=== PATIENT | female | born 1990 | race Hispanic/Latino ===

== ENCOUNTER 2017-11-23 15:32 | Inpatient (IN) | payer MEDICARE ==
[~2017-11-23] VITALS: Ht 152.4 cm; Wt 75.9 kg
[~2017-11-23 15:32] MED LIST: ALPR0.5T8 PO; DULOXETINE PO; FOLI1TAB85 PO; GABA-529 PO; INSNOV SQ; LEVO500T2 PO; LOSA50TA2 PO; METO100T14 PO; NPH,100V11 SQ; TRAM50TA4 PO
[2017-11-23 15:56] LABS: APPEARANCE,URINE Clear (CLEAR); BILIRUBIN,URINE Negative (NEGATIVE); COLOR,URINE Yellow (YELLOW); GLUCOSE, URINE (UA) >=1000 mg/dL (NEGATIVE); KETONES,URINE Negative (NEGATIVE); LEUKOCYTE ESTERASE ,URINE Negative (NEGATIVE); NITRATE,URINE Negative (NEGATIVE); OCCULT BLOOD,URINE Small (NEGATIVE); PROTEIN,URINE 300 (NEGATIVE); UROBILINOGEN,URINE 0.2 mg/dL (0.2-1.0)
[2017-11-23] MEDS ORDERED: IPRATROPIUM/ALBUTEROL SULFATE 3 ML SOLUTION IH ONE (16:12)
[2017-11-23 16:13] LABS: BASOPHILS % (AUTO) 0.2 % (0.0-5.0); EOSINOPHILS % (AUTO) 0.8 % (0.0-8.0); HEMATOCRIT 29.4 % (36-48); LYMPHOCYTES % (AUTO) 10.4 % (21.0-51.0); MEAN CORPUSCULAR HGB CONC 33.1 g/dL (32.0-36.0); MEAN CORPUSCULAR VOLUME 90.6 fL (79-99); MONOCYTES % (AUTO) 5.9 % (3.0-13.0); NEUTROPHILS % (AUTO) 82.7 % (40.0-77.0); PLATELET COUNT (AUTO) 270 K/uL (130-400); RED BLOOD CELL COUNT(AUTO) 3.25 MIL/uL (4.00-5.50); RED CELL DISTRIBUTION WIDTH 16.7 % (11.0-15.5); WHITE BLOOD COUNT (AUTO) 11.8 K/uL (4.8-10.8)
[2017-11-23] MEDS ORDERED: SODIUM CHLORIDE 0.9% 1000ML 1,000 ML IV ONE (16:15)
[2017-11-23] MEDS ORDERED: MEROPENEM 1 GM VIAL ONE (16:15)
[2017-11-23] MEDS ORDERED: ACETAMINOPHEN 325 MG TAB ONE ×2 (16:16→21:26)
[2017-11-23 16:25] LABS: CARBON DIOXIDE 19 mmol/L (21-32); CHLORIDE 97 mmol/L (101-111); CREATININE 6.2 mg/dL (0.5-1.5); GLOMERULAR FILTR. RATE CALC 9 mL/min (>60); GLUCOSE,RANDOM 374 mg/dL (70-105); POTASSIUM 5.9 mmol/L (3.5-5.1); SODIUM SERUM 131 mmol/L (136-145); UREA NITROGEN, BLOOD 69 mg/dL (7-18)
[2017-11-23 16:28] LABS: INR 0.85 (0.85-1.15); PARTIAL THROMBOPLASTIN TIME 26.7 SEC (26.3-35.5)
[2017-11-23 16:40] LABS: ALANINE AMINOTRANSFERASE 64 U/L (12-78); ALBUMIN 2.4 g/dL (3.5-5.0); ASPARTATE AMINOTRANSFERASE 21 U/L (10-37); BILIRUBIN,TOTAL 0.6 mg/dL (0.2-1.0); CREATINE KINASE MB 1.5 ng/mL (0.5-3.6); CREATINE KINASE, TOTAL 67 U/L (21-232); MYOGLOBIN 184 ng/mL (10-92); TOTAL PROTEIN, SERUM 7.5 g/dL (6.0-8.3); TROPONIN I < 0.04 ng/mL (0.00-0.06)
[2017-11-23 17:05] LABS: BACTERIA,URINE Rare /HPF (None Seen); WBC,URINE 0-1 /HPF (0-1); YEAST,URINE BUDDING Rare /HPF (None Seen)
[2017-11-23 17:06] LABS: SQUAMOUS EPITHELIAL CELL,UR Rare /LPF (0-2)
[2017-11-23] MEDS ORDERED: CEFTRIAXONE SODIUM 1 GM ONE (19:24)
[2017-11-23 19:40] VITALS: BP 150/88
[2017-11-23] MEDS ORDERED: HYDRALAZINE HCL 20 MG/ML VIAL IV PRN (21:00)
[2017-11-23] MEDS ORDERED: GABA-529 PO (21:00)
[2017-11-23] MEDS ORDERED: NPH,100V11 SQ (21:00)
[2017-11-23] MEDS: INSULIN HUMULIN R 100 UNIT/ML 3ML SQ SCH (21:57)
[2017-11-23] MEDS ORDERED: ONDANSETRON HCL 4 MG/2 ML VIAL IV PRN (22:30)
[2017-11-23] MEDS ORDERED: GUAIFENESIN-DM 200/20 MG 10 ML PO PRN (22:30)
[2017-11-23] MEDS ORDERED: HYDROCODONE/ACETAMINOPHEN 5/325 MG TAB PO PRN (22:30)
[2017-11-23] MEDS ORDERED: CEFEPIME 1GM+NS 50ML 50 ML IV SCH (22:30)
[2017-11-23] MEDS ORDERED: HYDROCODONE/ACETAMINOPHEN 10/325 MG TAB ONE (23:36)
[2017-11-24] VITALS (7 sets, daily range): BP systolic 121–137; BP diastolic 58–72
[2017-11-24] MEDS: IPRATROPIUM/ALBUTEROL SULFATE 3 ML SOLUTION IH SCH ×4 (01:20→18:34)
[2017-11-24] MEDS ORDERED: HYDROCODONE/ACETAMINOPHEN 10/325 MG TAB ONE (03:54)
[2017-11-24 05:48] LABS: HEMATOCRIT 25.4 % (36-48); MEAN CORPUSCULAR HEMOGLOBIN 29.7 pg (27.0-33.0); MEAN CORPUSCULAR HGB CONC 32.6 g/dL (32.0-36.0); MEAN CORPUSCULAR VOLUME 91.3 fL (79-99); PLATELET COUNT (AUTO) 225 K/uL (130-400); RED BLOOD CELL COUNT(AUTO) 2.78 MIL/uL (4.00-5.50); RED CELL DISTRIBUTION WIDTH 16.6 % (11.0-15.5)
[2017-11-24 06:00] LABS: BILIRUBIN,TOTAL 0.3 mg/dL (0.2-1.0); CREATININE 6.5 mg/dL (0.5-1.5); MAGNESIUM 1.9 mg/dL (1.80-2.40); PHOSPHORUS 5.5 mg/dL (2.5-4.9); POTASSIUM 4.6 mmol/L (3.5-5.1); TOTAL PROTEIN, SERUM 6.5 g/dL (6.0-8.3)
[2017-11-24 06:24] LABS: BAND NEUTROPHILS % (MANUAL) 11 % (0-2); LYMPHOCYTES % (MANUAL) 12 % (22-44); MONOCYTES % (MANUAL) 2 % (2-9); SEGMENTED NEUTROPHILS % 75 % (40-70)
[2017-11-24 06:25] LABS: MAN.DIFF COMMENT-IMPRESSION MANUAL DIFFERENTIAL; PLATELET MORPHOLOGY COMMENT ADEQUATE
[2017-11-24] MEDS: INSULIN HUMULIN R 100 UNIT/ML 3ML SQ SCH ×3 (06:25→21:29)
[2017-11-24] MEDS ORDERED: VANCOMYCIN PROTOCOL PER PHARMACY IV SCH (10:00)
[2017-11-24] MEDS ORDERED: EPOETIN ALFA 10,000 UNIT/ML VIAL SQ SCH (10:15)
[2017-11-24] MEDS: PANTOPRAZOLE SODIUM 40 MG TABLET.DR PO SCH (10:22)
[2017-11-24] MEDS: HEPARIN SODIUM 5000UNIT/ML 1ML VIAL SQ SCH ×2 (10:23→21:32)
[2017-11-24] MEDS ORDERED: VANCOMYCIN 1GM+NS 250ML 250 ML IV SCH (11:00)
[2017-11-24] MEDS ORDERED: LEVOFLOXACIN 500 MG/D5W 100 ML 100 ML IV SCH (11:00)
[2017-11-24] MEDS ORDERED: RENAL DOSE IV PRN (11:00)
[2017-11-24] MEDS ORDERED: ALPRAZOLAM 0.5 MG TABLET PO PRN (11:00)
[2017-11-24] MEDS ORDERED: ALTEPLASE 2 MG/2 ML IVCATH SCH (12:45)
[2017-11-24] MEDS: GABAPENTIN 100 MG CAPSULE PO SCH ×2 (16:34→21:20)
[2017-11-24] MEDS: ACETAMINOPHEN 325 MG TAB PO PRN (16:36)
[2017-11-24 17:26] LABS: CREATINE KINASE MB 0.5 ng/mL (0.5-3.6); CREATINE KINASE, TOTAL 66 U/L (21-232); MYOGLOBIN 282 ng/mL (10-92); TROPONIN I < 0.04 ng/mL (0.00-0.06)
[2017-11-24] MEDS ORDERED: CEFTRIAXONE SODIUM 1 GM IVP SCH (19:00)
[2017-11-24] MEDS: METOPROLOL TARTRATE 50 MG TAB PO SCH (21:20)
[2017-11-24] MEDS: HYDROCODONE/ACETAMINOPHEN 10/325 MG TAB PO PRN (21:21)
[2017-11-24] MEDS: INSULIN NPH 100 UNIT/ML 3ML SQ SCH (21:28)
[2017-11-24 23:15] LABS: CREATINE KINASE MB 1.3 ng/mL (0.5-3.6); TROPONIN I 0.05 ng/mL (0.00-0.06)
[2017-11-25] MEDS ORDERED: DEXTROSE 50%-WATER 50 ML DISP.SYRIN IV ONE ×3 (00:33→04:38)
[2017-11-25] MEDS: IPRATROPIUM/ALBUTEROL SULFATE 3 ML SOLUTION IH SCH ×5 (00:49→23:51)
[2017-11-25 02:54] VITALS: BP 125/84
[2017-11-25 03:48] LABS: MEAN CORPUSCULAR HEMOGLOBIN 30.4 pg (27.0-33.0); MEAN CORPUSCULAR HGB CONC 33.4 g/dL (32.0-36.0); MEAN CORPUSCULAR VOLUME 91.1 fL (79-99); PLATELET COUNT (AUTO) 325 K/uL (130-400); RED BLOOD CELL COUNT(AUTO) 3.07 MIL/uL (4.00-5.50); RED CELL DISTRIBUTION WIDTH 17.3 % (11.0-15.5); WHITE BLOOD COUNT (AUTO) 12.6 K/uL (4.8-10.8)
[2017-11-25 05:04] LABS: CREATINE KINASE MB 1.8 ng/mL (0.5-3.6); CREATININE 6.5 mg/dL (0.5-1.5); POTASSIUM 4.8 mmol/L (3.5-5.1); TROPONIN I 0.08 ng/mL (0.00-0.06)
[2017-11-25] MEDS: INSULIN NPH 100 UNIT/ML 3ML SQ SCH ×2 (05:56→22:17)
[2017-11-25] MEDS: INSULIN HUMULIN R 100 UNIT/ML 3ML SQ SCH ×4 (05:58→22:19)
[2017-11-25 07:42] VITALS: BP 131/69
[2017-11-25] MEDS: PANTOPRAZOLE SODIUM 40 MG TABLET.DR PO SCH (10:37)
[2017-11-25] MEDS: METOPROLOL TARTRATE 50 MG TAB PO SCH ×2 (10:37→21:20)
[2017-11-25] MEDS: FOLIC ACID/VITAMIN B COMP W-C 1 MG CAPSULE PO SCH (10:37)
[2017-11-25] MEDS: LOSARTAN 50 MG TABLET PO SCH (10:37)
[2017-11-25] MEDS: GABAPENTIN 100 MG CAPSULE PO SCH ×3 (10:42→21:20)
[2017-11-25] MEDS: HEPARIN SODIUM 5000UNIT/ML 1ML VIAL SQ SCH ×2 (10:43→22:15)
[2017-11-25] MEDS: ACETAMINOPHEN 325 MG TAB PO PRN (10:52)
[2017-11-25 11:28] VITALS: BP 136/77
[2017-11-25] MEDS: HYDROCODONE/ACETAMINOPHEN 10/325 MG TAB PO PRN ×2 (15:43→21:25)
[2017-11-25 16:15] VITALS: BP 118/69
[2017-11-25 19:34] VITALS: BP 128/72
[2017-11-25 23:17] VITALS: BP 123/73
[2017-11-26] VITALS (12 sets, daily range): BP systolic 114–137; BP diastolic 58–78
[2017-11-26 03:38] LABS: HEMATOCRIT 24.5 % (36-48); MEAN CORPUSCULAR HEMOGLOBIN 31.5 pg (27.0-33.0); MEAN CORPUSCULAR HGB CONC 34.3 g/dL (32.0-36.0); MEAN CORPUSCULAR VOLUME 91.9 fL (79-99); PLATELET COUNT (AUTO) 322 K/uL (130-400); RED BLOOD CELL COUNT(AUTO) 2.67 MIL/uL (4.00-5.50); RED CELL DISTRIBUTION WIDTH 17.1 % (11.0-15.5); WHITE BLOOD COUNT (AUTO) 9.5 K/uL (4.8-10.8)
[2017-11-26 03:47] LABS: CREATININE 7.2 mg/dL (0.5-1.5); PHOSPHORUS 7.5 mg/dL (2.5-4.9); POTASSIUM 5.1 mmol/L (3.5-5.1)
[2017-11-26 03:51] LABS: INR 0.89 (0.85-1.15); PARTIAL THROMBOPLASTIN TIME 28.8 SEC (26.3-35.5); PROTHROMBIN TIME 9.4 SEC (9.6-11.6)
[2017-11-26 04:06] LABS: BAND NEUTROPHILS % (MANUAL) 1 % (0-2); BASOPHILS % (MANUAL) 1 % (0-2); EOSINOPHILS % (MANUAL) 1 % (1-6); LYMPHOCYTES % (MANUAL) 16 % (22-44); MONOCYTES % (MANUAL) 6 % (2-9); SEGMENTED NEUTROPHILS % 75 % (40-70)
[2017-11-26 04:07] LABS: MAN.DIFF COMMENT-IMPRESSION MANUAL DIFFERENTIAL; PLATELET MORPHOLOGY COMMENT ADEQUATE
[2017-11-26] MEDS: IPRATROPIUM/ALBUTEROL SULFATE 3 ML SOLUTION IH SCH ×4 (06:52→23:38)
[2017-11-26] MEDS: HEPARIN SODIUM 5000UNIT/ML 1ML VIAL SQ SCH ×2 (07:28→22:45)
[2017-11-26] MEDS: INSULIN NPH 100 UNIT/ML 3ML SQ SCH ×2 (07:30→22:49)
[2017-11-26] MEDS: INSULIN HUMULIN R 100 UNIT/ML 3ML SQ SCH ×4 (07:30→22:50)
[2017-11-26] MEDS: GABAPENTIN 100 MG CAPSULE PO SCH ×3 (07:35→22:44)
[2017-11-26] MEDS: PANTOPRAZOLE SODIUM 40 MG TABLET.DR PO SCH (07:35)
[2017-11-26] MEDS: LOSARTAN 50 MG TABLET PO SCH (07:35)
[2017-11-26] MEDS: METOPROLOL TARTRATE 50 MG TAB PO SCH ×2 (07:35→22:46)
[2017-11-26] MEDS: FOLIC ACID/VITAMIN B COMP W-C 1 MG CAPSULE PO SCH (07:35)
[2017-11-26] MEDS ORDERED: LEVOFLOXACIN 250 MG/D5W 50ML 50 ML IVPB SCH (09:00)
[2017-11-26] MEDS ORDERED: LIDOCAINE HCL 1% 20 ML VIAL ONE (09:22)
[2017-11-26] MEDS ORDERED: MIDAZOLAM HCL 1 MG/ML 2ML VIAL ONE (10:02)
[2017-11-26] MEDS: METHYLPREDNISOLONE SOD SUCC 40MG/ML 1ML IVP SCH ×2 (14:28→22:51)
[2017-11-26] MEDS: HYDROCODONE/ACETAMINOPHEN 10/325 MG TAB PO PRN ×2 (14:29→20:16)
[2017-11-26] MEDS ORDERED: SODIUM CHLORIDE 0.9% 1000ML 1,000 ML IV ONE (19:28)
[2017-11-27] MEDS: HYDROCODONE/ACETAMINOPHEN 10/325 MG TAB PO PRN ×4 (03:50→23:57)
[2017-11-27 04:00] VITALS: BP 147/86
[2017-11-27 04:20] LABS: HEMATOCRIT 26.9 % (36-48); MEAN CORPUSCULAR HEMOGLOBIN 30.4 pg (27.0-33.0); MEAN CORPUSCULAR HGB CONC 33.6 g/dL (32.0-36.0); MEAN CORPUSCULAR VOLUME 90.5 fL (79-99); PLATELET COUNT (AUTO) 440 K/uL (130-400); RED BLOOD CELL COUNT(AUTO) 2.97 MIL/uL (4.00-5.50); RED CELL DISTRIBUTION WIDTH 17.1 % (11.0-15.5); WHITE BLOOD COUNT (AUTO) 6.5 K/uL (4.8-10.8)
[2017-11-27 04:27] LABS: POTASSIUM 4.8 mmol/L (3.5-5.1)
[2017-11-27] MEDS: IPRATROPIUM/ALBUTEROL SULFATE 3 ML SOLUTION IH SCH ×4 (06:14→23:44)
[2017-11-27] MEDS: METHYLPREDNISOLONE SOD SUCC 40MG/ML 1ML IVP SCH ×3 (06:38→22:02)
[2017-11-27] MEDS: INSULIN NPH 100 UNIT/ML 3ML SQ SCH ×2 (06:39→21:23)
[2017-11-27] MEDS: INSULIN HUMULIN R 100 UNIT/ML 3ML SQ SCH ×5 (06:41→23:46)
[2017-11-27 07:51] VITALS: BP 140/78
[2017-11-27] MEDS: FOLIC ACID/VITAMIN B COMP W-C 1 MG CAPSULE PO SCH (08:17)
[2017-11-27] MEDS: METOPROLOL TARTRATE 50 MG TAB PO SCH ×2 (08:17→21:19)
[2017-11-27] MEDS: PANTOPRAZOLE SODIUM 40 MG TABLET.DR PO SCH (08:17)
[2017-11-27] MEDS: LOSARTAN 50 MG TABLET PO SCH (08:17)
[2017-11-27] MEDS: HEPARIN SODIUM 5000UNIT/ML 1ML VIAL SQ SCH ×2 (08:18→21:10)
[2017-11-27] MEDS: GABAPENTIN 100 MG CAPSULE PO SCH ×3 (08:29→21:15)
[2017-11-27 11:51] VITALS: BP 134/74
[2017-11-27 16:25] VITALS: BP 147/78
[2017-11-27 19:27] VITALS: BP 137/80
[2017-11-28 00:12] VITALS: BP 152/73
[2017-11-28 04:53] VITALS: BP 142/77
[2017-11-28 05:12] LABS: HEMATOCRIT 26.5 % (36-48); MEAN CORPUSCULAR HEMOGLOBIN 31.2 pg (27.0-33.0); MEAN CORPUSCULAR HGB CONC 34.8 g/dL (32.0-36.0); MEAN CORPUSCULAR VOLUME 89.7 fL (79-99); NUCLEATED RED BLOOD CELLS 0.1 % (0.0-0.19); PLATELET COUNT (AUTO) 458 K/uL (130-400); RED BLOOD CELL COUNT(AUTO) 2.96 MIL/uL (4.00-5.50)
[2017-11-28 05:19] LABS: CREATININE 4.8 mg/dL (0.5-1.5); MAGNESIUM 2.1 mg/dL (1.80-2.40); PHOSPHORUS 5.8 mg/dL (2.5-4.9); POTASSIUM 4.1 mmol/L (3.5-5.1)
[2017-11-28] MEDS: IPRATROPIUM/ALBUTEROL SULFATE 3 ML SOLUTION IH SCH ×2 (05:57→11:03)
[2017-11-28] MEDS: METHYLPREDNISOLONE SOD SUCC 40MG/ML 1ML IVP SCH (06:36)
[2017-11-28] MEDS: INSULIN NPH 100 UNIT/ML 3ML SQ SCH (06:41)
[2017-11-28] MEDS: INSULIN HUMULIN R 100 UNIT/ML 3ML SQ SCH (06:42)
[2017-11-28 07:17] VITALS: BP 140/85
[2017-11-28 07:46] LABS: LYMPHOCYTES % (MANUAL) 3 % (22-44); MAN.DIFF COMMENT-IMPRESSION MANUAL DIFFERENTIAL; MONOCYTES % (MANUAL) 5 % (2-9); PLATELET MORPHOLOGY COMMENT SLIGHT INCREASED; SEGMENTED NEUTROPHILS % 92 % (40-70)
[2017-11-28] MEDS: HYDROCODONE/ACETAMINOPHEN 10/325 MG TAB PO PRN (10:07)
[2017-11-28 11:22] VITALS: BP 144/75
== END 2017-11-28 15:00 | disposition home or self-care (01) | DRG 314 ==
LOC: EDH 15:32 → EDHIP 16:50 → 4CH 19:36 → 2DH 11-24 17:13
PROVIDERS: ADMIT Family Medicine; ATTEND Family Medicine
PROC: 05PYX3Z Removal of Infusion Device from Upper Vein, External Approach (ICD-10-PCS; principal; 2017-11-26)
PROC: 05HY33Z Insertion of Infusion Device into Upper Vein, Percutaneous Approach (ICD-10-PCS; 2017-11-26)
PROC: B51V1ZA Fluoroscopy of Other Veins using Low Osmolar Contrast, Guidance (ICD-10-PCS; 2017-11-26)
PROC: 5A1D70Z Performance of Urinary Filtration, Intermittent, Less than 6 Hours Per Day (ICD-10-PCS; 2017-11-26)
PROC: 5A1D70Z Performance of Urinary Filtration, Intermittent, Less than 6 Hours Per Day (ICD-10-PCS; 2017-11-27)
DX: T82.898A Other specified complication of vascular prosthetic devices, implants and grafts, initial encounter (principal); A41.9 Sepsis, unspecified organism; I12.0 Hypertensive chronic kidney disease with stage 5 chronic kidney disease or end stage renal disease; J18.9 Pneumonia, unspecified organism; E11.22 Type 2 diabetes mellitus with diabetic chronic kidney disease; N18.6 End stage renal disease; E11.65 Type 2 diabetes mellitus with hyperglycemia; S41.102A Unspecified open wound of left upper arm, initial encounter; D63.1 Anemia in chronic kidney disease; N39.0 Urinary tract infection, site not specified; L03.114 Cellulitis of left upper limb; E87.70 Fluid overload, unspecified; R06.03 Acute respiratory distress; F32.9 Major depressive disorder, single episode, unspecified; F41.1 Generalized anxiety disorder; M79.81 Nontraumatic hematoma of soft tissue; Z82.0 Family history of epilepsy and other diseases of the nervous system; Y83.2 Surgical operation with anastomosis, bypass or graft as the cause of abnormal reaction of the patient, or of later complication, without mention of misadventure at the time of the procedure; J20.9 Acute bronchitis, unspecified; Z99.2 Dependence on renal dialysis; Z87.440 Personal history of urinary (tract) infections; Z90.49 Acquired absence of other specified parts of digestive tract; Z98.891 History of uterine scar from previous surgery; Z89.432 Acquired absence of left foot; Z83.3 Family history of diabetes mellitus; Z82.41 Family history of sudden cardiac death; Z82.49 Family history of ischemic heart disease and other diseases of the circulatory system; Z82.3 Family history of stroke; Z82.5 Family history of asthma and other chronic lower respiratory diseases; Y93.89 Activity, other specified; Y92.89 Other specified places as the place of occurrence of the external cause; Y99.8 Other external cause status; Z88.6 Allergy status to analgesic agent
CPT/HCPCS: 36415; 36581; 71045; 76882; 77001; 78580; 80048; 80053; 81001; 82009; 82550; 82553; 82947; 82948; 83605; 83735; 83874; 84100; 84484; 85025; 85027; 85610; 85730; 87040; 87070; 87077; 87088; 87186; 87804; 90935; 93005; 93971; 94640; 94664; 99152; 99153; A4218; A9540; C1750; C1769; J0696; J0885; J1644; J1815; J1956; J2185; J2250; J2920; J2997; J3370; J7030; J7070

== ENCOUNTER 2017-12-20 19:10 | Inpatient (IN) | payer MEDICARE ==
[~2017-12-20] VITALS: Ht 152.4 cm; Wt 70.7 kg
[~2017-12-20 19:10] MED LIST changes: -LEVO500T2 PO; -TRAM50TA4 PO
[2017-12-20] MEDS ORDERED: ACETAMINOPHEN EXTRA STRENGTH 500 MG TABLET ONE (19:23)
[2017-12-20] MEDS ORDERED: SODIUM CHLORIDE 0.9% 1000ML 1,000 ML IV ONE (19:23)
[2017-12-20 20:04] LABS: APPEARANCE,URINE Clear (CLEAR); BILIRUBIN,URINE Negative (NEGATIVE); COLOR,URINE Yellow (YELLOW); GLUCOSE, URINE (UA) >=1000 mg/dL (NEGATIVE); KETONES,URINE Negative (NEGATIVE); LEUKOCYTE ESTERASE ,URINE Negative (NEGATIVE); NITRATE,URINE Negative (NEGATIVE); OCCULT BLOOD,URINE Small (NEGATIVE); PH,URINE 5.5 (5.0-8.0); PROTEIN,URINE 300 (NEGATIVE); UROBILINOGEN,URINE 0.2 mg/dL (0.2-1.0)
[2017-12-20 20:07] LABS: HCG,QUAL RESULT NEGATIVE (NEGATIVE)
[2017-12-20 20:11] LABS: AMPHET/METH SCREEN,URINE NEGATIVE (NEGATIVE); BARBITURATE SCREEN, URINE NEGATIVE (NEGATIVE); BENZODIAZEPINES SCREEN,URINE POSITIVE (NEGATIVE); CANNABINOID SCREEN,URINE NEGATIVE (NEGATIVE); COCAINE SCREEN,URINE NEGATIVE (NEGATIVE); OPIATE SCREEN,URINE NEGATIVE (NEGATIVE); PHENCYCLIDINE SCREEN,URINE NEGATIVE (NEGATIVE)
[2017-12-20 20:37] LABS: BACTERIA,URINE Few /HPF (None Seen); FINE GRANULAR CASTS,URINE 0-2 /LPF (None Seen); WBC,URINE 0-1 /HPF (0-1)
[2017-12-20 20:42] LABS: CARBON DIOXIDE 24 mmol/L (21-32); CHLORIDE 95 mmol/L (101-111); CREATININE 4.9 mg/dL (0.5-1.5); GLOMERULAR FILTR. RATE CALC 11 mL/min (>60); GLUCOSE,RANDOM 363 mg/dL (70-105); POTASSIUM 4.2 mmol/L (3.5-5.1); SODIUM SERUM 131 mmol/L (136-145); UREA NITROGEN, BLOOD 37 mg/dL (7-18)
[2017-12-20 20:45] LABS: BASOPHILS % (AUTO) 1.5 % (0.0-5.0); EOSINOPHILS % (AUTO) 0.5 % (0.0-8.0); HEMATOCRIT 28.7 % (36-48); LYMPHOCYTES % (AUTO) 13.5 % (21.0-51.0); MEAN CORPUSCULAR HEMOGLOBIN 29.9 pg (27.0-33.0); MEAN CORPUSCULAR HGB CONC 33.4 g/dL (32.0-36.0); MEAN CORPUSCULAR VOLUME 89.5 fL (79-99); MONOCYTES % (AUTO) 9.4 % (3.0-13.0); NEUTROPHILS % (AUTO) 75.1 % (40.0-77.0); NUCLEATED RED BLOOD CELLS 0.1 % (0.0-0.19); PLATELET COUNT (AUTO) 277 K/uL (130-400); RED BLOOD CELL COUNT(AUTO) 3.21 MIL/uL (4.00-5.50); RED CELL DISTRIBUTION WIDTH 17.9 % (11.0-15.5); WHITE BLOOD COUNT (AUTO) 18.4 K/uL (4.8-10.8)
[2017-12-20 20:46] LABS: ALANINE AMINOTRANSFERASE 19 U/L (12-78); ALBUMIN 2.3 g/dL (3.5-5.0); ASPARTATE AMINOTRANSFERASE 14 U/L (10-37); BILIRUBIN,TOTAL 0.6 mg/dL (0.2-1.0); TOTAL PROTEIN, SERUM 7.5 g/dL (6.0-8.3)
[2017-12-20] MEDS ORDERED: CEFTRIAXONE SODIUM 2 GM VIAL ONE (21:53)
[2017-12-20 22:07] LABS: ACETONE,BLOOD NEGATIVE (NEGATIVE)
[2017-12-20] MEDS ORDERED: GLUCAGON 1MG KIT 1 MG ML IM PRN (23:45)
[2017-12-20] MEDS ORDERED: HYDRALAZINE HCL 20 MG/ML VIAL IM PRN (23:45)
[2017-12-20] MEDS ORDERED: DEXTROSE 50%-WATER 50 ML DISP.SYRIN IV PRN (23:45)
[2017-12-21] VITALS (13 sets, daily range): BP systolic 98–137; BP diastolic 50–80
[2017-12-21] MEDS ORDERED: ACETAMINOPHEN 325 MG TAB ONE (02:11)
[2017-12-21] MEDS ORDERED: VANCOMYCIN 1GM+NS 250ML 250 ML IV ONE (02:12)
[2017-12-21] MEDS: ONDANSETRON HCL MDV 20ML 2 MG/ML VIAL IVP PRN ×2 (03:08→10:20)
[2017-12-21 03:19] LABS: BASOPHILS % (AUTO) 0.5 % (0.0-5.0); EOSINOPHILS % (AUTO) 0.6 % (0.0-8.0); HEMATOCRIT 28.8 % (36-48); LYMPHOCYTES % (AUTO) 16.4 % (21.0-51.0); MEAN CORPUSCULAR HEMOGLOBIN 29.3 pg (27.0-33.0); MEAN CORPUSCULAR VOLUME 88.6 fL (79-99); MONOCYTES % (AUTO) 8.6 % (3.0-13.0); NEUTROPHILS % (AUTO) 73.9 % (40.0-77.0); PLATELET COUNT (AUTO) 336 K/uL (130-400); RED BLOOD CELL COUNT(AUTO) 3.25 MIL/uL (4.00-5.50); RED CELL DISTRIBUTION WIDTH 17.7 % (11.0-15.5)
[2017-12-21 03:30] LABS: CREATININE 4.9 mg/dL (0.5-1.5); POTASSIUM 4.1 mmol/L (3.5-5.1)
[2017-12-21] MEDS ORDERED: MEROPENEM 500MG+NS 50ML 50 ML IV SCH (06:00)
[2017-12-21] MEDS ORDERED: MEROPENEM 500 MG VIAL ONE (07:00)
[2017-12-21] MEDS: INSULIN LISPRO 100 UNIT/ML 3ML SQ SCH ×3 (07:02→17:25)
[2017-12-21] MEDS: INSULIN NPH 100 UNIT/ML 3ML SQ SCH ×2 (07:20→21:09)
[2017-12-21 08:02] LABS: INR 0.88 (0.85-1.15); PROTHROMBIN TIME 9.1 SEC (9.6-11.6)
[2017-12-21] MEDS ORDERED: LIDOCAINE HCL 1% MDV 50ML VIAL ONE ×2 (08:45→14:51)
[2017-12-21] MEDS: HEPARIN SODIUM 5000UNIT/ML 1ML VIAL SQ SCH ×2 (09:00→21:11)
[2017-12-21] MEDS: FOLIC ACID/VITAMIN B COMP W-C 1 MG CAPSULE PO SCH ×2 (09:00→10:26)
[2017-12-21] MEDS: METOPROLOL TARTRATE 50 MG TAB PO SCH ×2 (10:20→20:48)
[2017-12-21] MEDS: LOSARTAN 50 MG TABLET PO SCH (10:26)
[2017-12-21] MEDS: DULOXETINE HCL 30 MG CAP PO SCH (10:26)
[2017-12-21] MEDS: GABAPENTIN 100 MG CAPSULE PO SCH ×3 (10:40→20:48)
[2017-12-21] MEDS: FAMOTIDINE 20MG TAB 20 MG TAB PO SCH (10:43)
[2017-12-21] MEDS ORDERED: GLUCAGON 1MG KIT 1 MG ML IM PRN (12:00)
[2017-12-21] MEDS ORDERED: DEXTROSE 50%-WATER 50 ML DISP.SYRIN IV PRN (12:00)
[2017-12-21] MEDS ORDERED: INSULIN HUMULIN R 100 UNIT/ML 3ML ONE (12:03)
[2017-12-21] MEDS: ACETAMINOPHEN 325 MG TAB PO PRN ×3 (12:08→20:52)
[2017-12-21] MEDS: MEROPENEM 500 MG VIAL IVP SCH ×2 (14:59→22:13)
[2017-12-21] MEDS: INSULIN HUMULIN R 100 UNIT/ML 3ML SQ SCH ×2 (16:17→21:11)
[2017-12-21] MEDS ORDERED: HEPARIN SODIUM 5000UNIT/ML 1ML VIAL IJ PRN (20:45)
[2017-12-21] MEDS ORDERED: SODIUM CHLORIDE 0.9% 1000ML 1,000 ML IV PRN (20:45)
[2017-12-21] MEDS ORDERED: 0.9% SODIUM CHLORIDE 250 ML IV BAG IV PRN (20:45)
[2017-12-21] MEDS: ALPRAZOLAM 0.5 MG TABLET PO PRN (20:58)
[2017-12-22 03:40] VITALS: BP 114/70
[2017-12-22 03:45] LABS: HEMATOCRIT 27.6 % (36-48); MEAN CORPUSCULAR HEMOGLOBIN 30.9 pg (27.0-33.0); MEAN CORPUSCULAR HGB CONC 34.7 g/dL (32.0-36.0); NUCLEATED RED BLOOD CELLS 0.1 % (0.0-0.19); PLATELET COUNT (AUTO) 301 K/uL (130-400); RED CELL DISTRIBUTION WIDTH 18.5 % (11.0-15.5)
[2017-12-22 04:07] LABS: BILIRUBIN,TOTAL 0.4 mg/dL (0.2-1.0); CREATININE 3.6 mg/dL (0.5-1.5); PHOSPHORUS 3.8 mg/dL (2.5-4.9); POTASSIUM 3.4 mmol/L (3.5-5.1); TOTAL PROTEIN, SERUM 7.3 g/dL (6.0-8.3)
[2017-12-22] MEDS: MEROPENEM 500 MG VIAL IVP SCH ×3 (05:16→21:28)
[2017-12-22] MEDS: INSULIN LISPRO 100 UNIT/ML 3ML SQ SCH ×3 (06:24→16:43)
[2017-12-22] MEDS: INSULIN NPH 100 UNIT/ML 3ML SQ SCH ×2 (06:25→20:44)
[2017-12-22] MEDS: INSULIN HUMULIN R 100 UNIT/ML 3ML SQ SCH ×4 (06:25→20:45)
[2017-12-22] MEDS: METOPROLOL TARTRATE 50 MG TAB PO SCH ×2 (08:06→20:46)
[2017-12-22] MEDS: LOSARTAN 50 MG TABLET PO SCH (08:06)
[2017-12-22] MEDS: ACETAMINOPHEN 325 MG TAB PO PRN ×2 (08:06→23:21)
[2017-12-22] MEDS: DULOXETINE HCL 30 MG CAP PO SCH (08:06)
[2017-12-22] MEDS: FOLIC ACID/VITAMIN B COMP W-C 1 MG CAPSULE PO SCH ×2 (08:06→08:13)
[2017-12-22] MEDS: HEPARIN SODIUM 5000UNIT/ML 1ML VIAL SQ SCH ×2 (08:08→20:43)
[2017-12-22] MEDS: FAMOTIDINE 20MG TAB 20 MG TAB PO SCH (08:12)
[2017-12-22] MEDS: GABAPENTIN 100 MG CAPSULE PO SCH ×3 (08:13→20:46)
[2017-12-22 08:29] VITALS: BP 117/68
[2017-12-22 11:48] VITALS: BP 144/57
[2017-12-22] MEDS ORDERED: VANCOMYCIN PROTOCOL PER PHARMACY IV SCH (14:00)
[2017-12-22] MEDS ORDERED: GENTAMICIN 80 MG/NS 100 ML PB 100 ML IV ONE (14:00)
[2017-12-22] MEDS: ONDANSETRON HCL MDV 20ML 2 MG/ML VIAL IVP PRN (14:13)
[2017-12-22 15:32] VITALS: BP 112/64
[2017-12-22] MEDS: VANCOMYCIN 1GM+NS 250ML 250 ML IV SCH (16:26)
[2017-12-22 19:54] VITALS: BP 104/57
[2017-12-22] MEDS: ALPRAZOLAM 0.5 MG TABLET PO PRN (20:53)
[2017-12-22 23:30] VITALS: BP 125/67
[2017-12-23 04:26] VITALS: BP 109/58
[2017-12-23] MEDS: MEROPENEM 500 MG VIAL IVP SCH ×3 (05:20→21:10)
[2017-12-23 05:55] LABS: BASOPHILS % (AUTO) 0.4 % (0.0-5.0); EOSINOPHILS % (AUTO) 0.1 % (0.0-8.0); HEMATOCRIT 27.3 % (36-48); LYMPHOCYTES % (AUTO) 18.8 % (21.0-51.0); MEAN CORPUSCULAR HEMOGLOBIN 29.8 pg (27.0-33.0); MEAN CORPUSCULAR HGB CONC 33.1 g/dL (32.0-36.0); MEAN CORPUSCULAR VOLUME 89.8 fL (79-99); MONOCYTES % (AUTO) 11.4 % (3.0-13.0); NEUTROPHILS % (AUTO) 69.3 % (40.0-77.0); PLATELET COUNT (AUTO) 293 K/uL (130-400); RED BLOOD CELL COUNT(AUTO) 3.04 MIL/uL (4.00-5.50); RED CELL DISTRIBUTION WIDTH 18.4 % (11.0-15.5); WHITE BLOOD COUNT (AUTO) 13.2 K/uL (4.8-10.8)
[2017-12-23 06:09] LABS: CREATININE 6.6 mg/dL (0.5-1.5); POTASSIUM 4.3 mmol/L (3.5-5.1)
[2017-12-23] MEDS: INSULIN NPH 100 UNIT/ML 3ML SQ SCH ×2 (06:19→20:59)
[2017-12-23] MEDS: INSULIN LISPRO 100 UNIT/ML 3ML SQ SCH ×3 (06:20→16:26)
[2017-12-23] MEDS: INSULIN HUMULIN R 100 UNIT/ML 3ML SQ SCH ×4 (06:21→21:01)
[2017-12-23 08:04] VITALS: BP 124/68
[2017-12-23] MEDS: METOPROLOL TARTRATE 50 MG TAB PO SCH ×2 (08:16→20:12)
[2017-12-23] MEDS: FAMOTIDINE 20MG TAB 20 MG TAB PO SCH (08:16)
[2017-12-23] MEDS: DULOXETINE HCL 30 MG CAP PO SCH (08:16)
[2017-12-23] MEDS: LOSARTAN 50 MG TABLET PO SCH (08:17)
[2017-12-23] MEDS: GABAPENTIN 100 MG CAPSULE PO SCH ×3 (08:17→20:13)
[2017-12-23] MEDS: FOLIC ACID/VITAMIN B COMP W-C 1 MG CAPSULE PO SCH ×2 (08:17)
[2017-12-23] MEDS: ACETAMINOPHEN 325 MG TAB PO PRN ×2 (08:25→13:31)
[2017-12-23] MEDS: HEPARIN SODIUM 5000UNIT/ML 1ML VIAL SQ SCH ×2 (08:32→20:58)
[2017-12-23] MEDS: TRAMADOL HCL 50 MG TABLET PO PRN ×2 (10:08→18:28)
[2017-12-23 11:10] VITALS: BP 100/54
[2017-12-23] MEDS ORDERED: GUAIFENESIN SUGAR-FREE 100 MG/5 ML UDCUP PO PRN (12:45)
[2017-12-23] MEDS: ONDANSETRON HCL MDV 20ML 2 MG/ML VIAL IVP PRN (13:26)
[2017-12-23 16:26] VITALS: BP 120/70
[2017-12-23 19:41] VITALS: BP 116/70
[2017-12-23] MEDS: ALPRAZOLAM 0.5 MG TABLET PO PRN (20:12)
[2017-12-23] MEDS ORDERED: ALBUTEROL SULFATE 0.042% 1.25 MG/3 ML INH IH ONE (22:59)
[2017-12-23] MEDS: ALBUTEROL SULFATE 0.042% 1.25 MG/3 ML INH IH SCH (23:09)
[2017-12-24 00:09] VITALS: BP 132/73
[2017-12-24] MEDS: TRAMADOL HCL 50 MG TABLET PO PRN ×2 (02:08→09:17)
[2017-12-24 04:29] VITALS: BP 106/58
[2017-12-24] MEDS: MEROPENEM 500 MG VIAL IVP SCH (05:26)
[2017-12-24 05:37] LABS: HEMATOCRIT 25.3 % (36-48); MEAN CORPUSCULAR HEMOGLOBIN 30.7 pg (27.0-33.0); MEAN CORPUSCULAR VOLUME 90.2 fL (79-99); NUCLEATED RED BLOOD CELLS 0.1 % (0.0-0.19); PLATELET COUNT (AUTO) 291 K/uL (130-400); RED BLOOD CELL COUNT(AUTO) 2.81 MIL/uL (4.00-5.50); RED CELL DISTRIBUTION WIDTH 18.2 % (11.0-15.5); WHITE BLOOD COUNT (AUTO) 13.1 K/uL (4.8-10.8)
[2017-12-24 05:53] LABS: ALBUMIN 1.6 g/dL (3.5-5.0); BILIRUBIN,TOTAL 0.4 mg/dL (0.2-1.0); TOTAL PROTEIN, SERUM 6.9 g/dL (6.0-8.3)
[2017-12-24 05:59] LABS: CREATININE 9.2 mg/dL (0.5-1.5)
[2017-12-24] MEDS: ALBUTEROL SULFATE 0.042% 1.25 MG/3 ML INH IH SCH ×4 (06:27→23:25)
[2017-12-24 07:00] VITALS: BP 113/61
[2017-12-24] MEDS: INSULIN HUMULIN R 100 UNIT/ML 3ML SQ SCH ×4 (07:30→21:16)
[2017-12-24] MEDS: INSULIN NPH 100 UNIT/ML 3ML SQ SCH ×2 (07:53→21:16)
[2017-12-24] MEDS: INSULIN LISPRO 100 UNIT/ML 3ML SQ SCH ×3 (07:54→17:56)
[2017-12-24] MEDS: LOSARTAN 50 MG TABLET PO SCH (09:00)
[2017-12-24] MEDS: FAMOTIDINE 20MG TAB 20 MG TAB PO SCH (09:00)
[2017-12-24] MEDS: METOPROLOL TARTRATE 50 MG TAB PO SCH ×2 (09:00→21:19)
[2017-12-24] MEDS: DULOXETINE HCL 30 MG CAP PO SCH (09:11)
[2017-12-24] MEDS: GABAPENTIN 100 MG CAPSULE PO SCH ×3 (09:12→21:18)
[2017-12-24] MEDS: FOLIC ACID/VITAMIN B COMP W-C 1 MG CAPSULE PO SCH (09:13)
[2017-12-24] MEDS: HEPARIN SODIUM 5000UNIT/ML 1ML VIAL SQ SCH ×2 (10:58→14:42)
[2017-12-24 11:00] VITALS: BP 119/70
[2017-12-24] MEDS: MORPHINE SULFATE 4 MG/1ML SYG IVP PRN ×2 (12:21→21:19)
[2017-12-24] MEDS ORDERED: AZITHROMYCIN 500MG+NS 250ML 250 ML IV SCH (15:30)
[2017-12-24 16:00] VITALS: BP 126/72
[2017-12-24] MEDS: VANCOMYCIN 1GM+NS 250ML 250 ML IV SCH (17:02)
[2017-12-24 19:15] VITALS: BP 112/62
[2017-12-24] MEDS ORDERED: ALBUMIN (HUMAN) 25% 100 ML IV PRN (19:30)
[2017-12-24] MEDS ORDERED: 0.9% SODIUM CHLORIDE 250 ML IV BAG IV PRN (19:30)
[2017-12-24] MEDS ORDERED: SODIUM CHLORIDE 0.9% 1000ML 1,000 ML IV PRN (19:30)
[2017-12-24] MEDS: HEPARIN SODIUM 5000UNIT/ML 1ML VIAL IJ PRN (21:41)
[2017-12-24] MEDS: ALPRAZOLAM 0.5 MG TABLET PO PRN (21:45)
[2017-12-24] MEDS: ACETAMINOPHEN 325 MG TAB PO PRN (21:47)
[2017-12-25] VITALS (7 sets, daily range): BP systolic 99–142; BP diastolic 42–77
[2017-12-25 05:11] LABS: HEMATOCRIT 23.5 % (36-48); MEAN CORPUSCULAR HGB CONC 33.7 g/dL (32.0-36.0); MEAN CORPUSCULAR VOLUME 89.1 fL (79-99); PLATELET COUNT (AUTO) 280 K/uL (130-400); RED BLOOD CELL COUNT(AUTO) 2.64 MIL/uL (4.00-5.50); RED CELL DISTRIBUTION WIDTH 18.4 % (11.0-15.5); WHITE BLOOD COUNT (AUTO) 8.9 K/uL (4.8-10.8)
[2017-12-25 05:25] LABS: POTASSIUM 4.1 mmol/L (3.5-5.1)
[2017-12-25 05:30] LABS: CREATININE 9.1 mg/dL (0.5-1.5)
[2017-12-25] MEDS: INSULIN HUMULIN R 100 UNIT/ML 3ML SQ SCH ×4 (06:03→21:58)
[2017-12-25] MEDS: ALBUTEROL SULFATE 0.042% 1.25 MG/3 ML INH IH SCH ×4 (06:26→23:17)
[2017-12-25] MEDS: MORPHINE SULFATE 4 MG/1ML SYG IVP PRN ×3 (06:58→22:19)
[2017-12-25] MEDS: INSULIN LISPRO 100 UNIT/ML 3ML SQ SCH ×3 (06:58→16:30)
[2017-12-25] MEDS: INSULIN NPH 100 UNIT/ML 3ML SQ SCH ×2 (06:59→21:58)
[2017-12-25] MEDS: LOSARTAN 50 MG TABLET PO SCH (09:00)
[2017-12-25] MEDS: METOPROLOL TARTRATE 50 MG TAB PO SCH ×2 (09:00→21:51)
[2017-12-25] MEDS: FOLIC ACID/VITAMIN B COMP W-C 1 MG CAPSULE PO SCH (09:35)
[2017-12-25] MEDS: DULOXETINE HCL 30 MG CAP PO SCH (09:35)
[2017-12-25] MEDS: GABAPENTIN 100 MG CAPSULE PO SCH ×3 (09:36→21:50)
[2017-12-25] MEDS: HEPARIN SODIUM 5000UNIT/ML 1ML VIAL SQ SCH ×2 (09:38→21:00)
[2017-12-25] MEDS: FAMOTIDINE 20MG TAB 20 MG TAB PO SCH (09:38)
[2017-12-25] MEDS ORDERED: IOPAMIDOL-370 100 ML VIAL IV ONE (10:52)
[2017-12-25] MEDS ORDERED: HEPARIN SODIUM 5000UNIT/ML 1ML VIAL SQ PRN (14:45)
[2017-12-25 14:48] LABS: BASOPHILS % (AUTO) 0.3 % (0.0-5.0); EOSINOPHILS % (AUTO) 6.8 % (0.0-8.0); HEMATOCRIT 24.3 % (36-48); LYMPHOCYTES % (AUTO) 11.1 % (21.0-51.0); MEAN CORPUSCULAR HEMOGLOBIN 29.7 pg (27.0-33.0); MEAN CORPUSCULAR HGB CONC 33.6 g/dL (32.0-36.0); MEAN CORPUSCULAR VOLUME 88.2 fL (79-99); MONOCYTES % (AUTO) 9.4 % (3.0-13.0); NEUTROPHILS % (AUTO) 72.4 % (40.0-77.0); PLATELET COUNT (AUTO) 331 K/uL (130-400); RED BLOOD CELL COUNT(AUTO) 2.76 MIL/uL (4.00-5.50); RED CELL DISTRIBUTION WIDTH 18.4 % (11.0-15.5); WHITE BLOOD COUNT (AUTO) 9.6 K/uL (4.8-10.8)
[2017-12-25 16:22] LABS: INR 0.9 (0.85-1.15); PARTIAL THROMBOPLASTIN TIME 29.4 SEC (26.3-35.5); PROTHROMBIN TIME 9.5 SEC (9.6-11.6)
[2017-12-25] MEDS: HEPARIN 25000 UNITS/250 ML D5W 250 ML IV SCH (16:56)
[2017-12-25] MEDS: ALPRAZOLAM 0.5 MG TABLET PO PRN (21:50)
[2017-12-25 22:59] LABS: INR 0.92 (0.85-1.15); PARTIAL THROMBOPLASTIN TIME 34.6 SEC (26.3-35.5); PROTHROMBIN TIME 9.7 SEC (9.6-11.6)
[2017-12-26] VITALS (13 sets, daily range): BP systolic 102–127; BP diastolic 57–75
[2017-12-26 05:44] LABS: MEAN CORPUSCULAR HEMOGLOBIN 30.5 pg (27.0-33.0); MEAN CORPUSCULAR HGB CONC 34.6 g/dL (32.0-36.0); MEAN CORPUSCULAR VOLUME 88.2 fL (79-99); PLATELET COUNT (AUTO) 401 K/uL (130-400); RED CELL DISTRIBUTION WIDTH 18.7 % (11.0-15.5); WHITE BLOOD COUNT (AUTO) 12.1 K/uL (4.8-10.8)
[2017-12-26 05:51] LABS: INR 0.93 (0.85-1.15); PARTIAL THROMBOPLASTIN TIME 49.9 SEC (26.3-35.5); PROTHROMBIN TIME 9.8 SEC (9.6-11.6)
[2017-12-26 05:56] LABS: POTASSIUM 4.8 mmol/L (3.5-5.1)
[2017-12-26 05:58] LABS: CREATININE 9.3 mg/dL (0.5-1.5)
[2017-12-26] MEDS: ALBUTEROL SULFATE 0.042% 1.25 MG/3 ML INH IH SCH ×4 (06:18→23:27)
[2017-12-26 06:25] LABS: BAND NEUTROPHILS % (MANUAL) 5 % (0-2); BASOPHILS % (MANUAL) 1 % (0-2); EOSINOPHILS % (MANUAL) 8 % (1-6); LYMPHOCYTES % (MANUAL) 20 % (22-44); MAN.DIFF COMMENT-IMPRESSION MANUAL DIFFERENTIAL; MONOCYTES % (MANUAL) 7 % (2-9); PLATELET MORPHOLOGY COMMENT ADEQUATE; REACTIVE LYMPHOCYTES 1 % (0-0); SEGMENTED NEUTROPHILS % 58 % (40-70)
[2017-12-26] MEDS: INSULIN LISPRO 100 UNIT/ML 3ML SQ SCH ×3 (06:37→17:00)
[2017-12-26] MEDS: INSULIN NPH 100 UNIT/ML 3ML SQ SCH ×2 (06:37→21:00)
[2017-12-26] MEDS: INSULIN HUMULIN R 100 UNIT/ML 3ML SQ SCH ×4 (06:38→21:00)
[2017-12-26] MEDS: MORPHINE SULFATE 4 MG/1ML SYG IVP PRN ×3 (06:47→22:26)
[2017-12-26] MEDS ORDERED: LIDOCAINE HCL 1% MDV 50ML VIAL ONE (08:38)
[2017-12-26] MEDS: HEPARIN SODIUM 5000UNIT/ML 1ML VIAL SQ SCH (09:00)
[2017-12-26] MEDS: LOSARTAN 50 MG TABLET PO SCH (09:00)
[2017-12-26] MEDS: METOPROLOL TARTRATE 50 MG TAB PO SCH ×2 (09:00→21:58)
[2017-12-26] MEDS: FAMOTIDINE 20MG TAB 20 MG TAB PO SCH (09:00)
[2017-12-26] MEDS: FOLIC ACID/VITAMIN B COMP W-C 1 MG CAPSULE PO SCH (10:37)
[2017-12-26] MEDS: DULOXETINE HCL 30 MG CAP PO SCH (10:37)
[2017-12-26] MEDS: GABAPENTIN 100 MG CAPSULE PO SCH ×3 (10:37→21:58)
[2017-12-26] MEDS ORDERED: EPOETIN ALFA 10,000 UNIT/ML VIAL SQ SCH ×3 (12:15→17:36)
[2017-12-26 13:57] LABS: INR 0.93 (0.85-1.15); PARTIAL THROMBOPLASTIN TIME 53.2 SEC (26.3-35.5); PROTHROMBIN TIME 9.8 SEC (9.6-11.6)
[2017-12-26] MEDS: VANCOMYCIN 1GM+NS 250ML 250 ML IV SCH (14:52)
[2017-12-26] MEDS: HEPARIN 25000 UNITS/250 ML D5W 250 ML IV SCH (15:15)
[2017-12-26] MEDS: HEPARIN SODIUM 5000UNIT/ML 1ML VIAL IJ PRN (16:58)
[2017-12-26 19:47] LABS: INR 0.9 (0.85-1.15); PROTHROMBIN TIME 9.5 SEC (9.6-11.6)
[2017-12-26] MEDS: APIXABAN 5 MG TABLET PO SCH (21:58)
[2017-12-26] MEDS: ALPRAZOLAM 0.5 MG TABLET PO PRN (22:25)
[2017-12-27] VITALS (14 sets, daily range): BP systolic 94–118; BP diastolic 48–77
[2017-12-27 04:05] LABS: MEAN CORPUSCULAR HEMOGLOBIN 29.7 pg (27.0-33.0); MEAN CORPUSCULAR HGB CONC 33.1 g/dL (32.0-36.0); MEAN CORPUSCULAR VOLUME 89.6 fL (79-99); PLATELET COUNT (AUTO) 420 K/uL (130-400); RED BLOOD CELL COUNT(AUTO) 2.35 MIL/uL (4.00-5.50); RED CELL DISTRIBUTION WIDTH 19.1 % (11.0-15.5); WHITE BLOOD COUNT (AUTO) 10.6 K/uL (4.8-10.8)
[2017-12-27 04:20] LABS: CREATININE 6.4 mg/dL (0.5-1.5); POTASSIUM 4.9 mmol/L (3.5-5.1)
[2017-12-27] MEDS ORDERED: MORPHINE SULFATE 4 MG/1ML SYG IVP PRN (05:30)
[2017-12-27] MEDS: ALBUTEROL SULFATE 0.042% 1.25 MG/3 ML INH IH SCH ×3 (06:23→18:36)
[2017-12-27] MEDS: INSULIN LISPRO 100 UNIT/ML 3ML SQ SCH ×3 (07:09→17:33)
[2017-12-27] MEDS: INSULIN HUMULIN R 100 UNIT/ML 3ML SQ SCH ×3 (07:09→16:17)
[2017-12-27] MEDS: INSULIN NPH 100 UNIT/ML 3ML SQ SCH (07:09)
[2017-12-27] MEDS: LOSARTAN 50 MG TABLET PO SCH (09:00)
[2017-12-27] MEDS: METOPROLOL TARTRATE 50 MG TAB PO SCH (09:00)
[2017-12-27] MEDS: DULOXETINE HCL 30 MG CAP PO SCH (09:15)
[2017-12-27] MEDS: FOLIC ACID/VITAMIN B COMP W-C 1 MG CAPSULE PO SCH (09:15)
[2017-12-27] MEDS: APIXABAN 5 MG TABLET PO SCH (09:16)
[2017-12-27] MEDS: GABAPENTIN 100 MG CAPSULE PO SCH ×2 (09:24→15:11)
[2017-12-27] MEDS: TRAMADOL HCL 50 MG TABLET PO PRN (09:25)
[2017-12-27] MEDS: ACETAMINOPHEN 325 MG TAB PO PRN (11:57)
== END 2017-12-27 22:17 | DRG 286 ==
LOC: EDH 19:10 → EDHIP 22:16 → 3AH 12-21 01:50
PROVIDERS: ADMIT Family Medicine; ATTEND Family Medicine
PROC: 05PYX3Z Removal of Infusion Device from Upper Vein, External Approach (ICD-10-PCS; principal; 2017-12-20)
PROC: 05HM33Z Insertion of Infusion Device into Right Internal Jugular Vein, Percutaneous Approach (ICD-10-PCS; 2017-12-21)
PROC: 5A1D70Z Performance of Urinary Filtration, Intermittent, Less than 6 Hours Per Day (ICD-10-PCS; 2017-12-21)
PROC: 5A1D70Z Performance of Urinary Filtration, Intermittent, Less than 6 Hours Per Day (ICD-10-PCS; 2017-12-24)
PROC: B2141ZZ Fluoroscopy of Right Heart using Low Osmolar Contrast (ICD-10-PCS; 2017-12-26)
PROC: 0JH63XZ Insertion of Tunneled Vascular Access Device into Chest Subcutaneous Tissue and Fascia, Percutaneous Approach (ICD-10-PCS; 2017-12-26)
PROC: 02H633Z Insertion of Infusion Device into Right Atrium, Percutaneous Approach (ICD-10-PCS; 2017-12-26)
PROC: 5A1D70Z Performance of Urinary Filtration, Intermittent, Less than 6 Hours Per Day (ICD-10-PCS; 2017-12-26)
DX: T82.7XXA Infection and inflammatory reaction due to other cardiac and vascular devices, implants and grafts, initial encounter (principal); A41.9 Sepsis, unspecified organism; I26.99 Other pulmonary embolism without acute cor pulmonale; J18.9 Pneumonia, unspecified organism; I12.0 Hypertensive chronic kidney disease with stage 5 chronic kidney disease or end stage renal disease; E11.22 Type 2 diabetes mellitus with diabetic chronic kidney disease; E11.40 Type 2 diabetes mellitus with diabetic neuropathy, unspecified; N18.6 End stage renal disease; E87.1 Hypo-osmolality and hyponatremia; Y84.8 Other medical procedures as the cause of abnormal reaction of the patient, or of later complication, without mention of misadventure at the time of the procedure; B95.2 Enterococcus as the cause of diseases classified elsewhere; D63.8 Anemia in other chronic diseases classified elsewhere; E66.9 Obesity, unspecified; Y95 Nosocomial condition; E11.65 Type 2 diabetes mellitus with hyperglycemia; E11.51 Type 2 diabetes mellitus with diabetic peripheral angiopathy without gangrene; Y83.8 Other surgical procedures as the cause of abnormal reaction of the patient, or of later complication, without mention of misadventure at the time of the procedure; F32.9 Major depressive disorder, single episode, unspecified; F41.9 Anxiety disorder, unspecified; Z74.01 Bed confinement status; Z79.4 Long term (current) use of insulin; Z82.49 Family history of ischemic heart disease and other diseases of the circulatory system; Z79.84 Long term (current) use of oral hypoglycemic drugs; Z83.3 Family history of diabetes mellitus; Z68.30 Body mass index [BMI] 30.0-30.9, adult; Z88.5 Allergy status to narcotic agent; Z99.2 Dependence on renal dialysis; Z90.49 Acquired absence of other specified parts of digestive tract
CPT/HCPCS: 36415; 36556; 36558; 36589; 71045; 71275; 77001; 80048; 80053; 80305; 81001; 81025; 82009; 82947; 82948; 83605; 84100; 85025; 85027; 85610; 85730; 86156; 86850; 86870; 86900; 86901; 86922; 87040; 87070; 87076; 87077; 87088; 87186; 87804; 90935; 93970; 94640; 94664; A4218; C1750; C1752; J0696; J0885; J1580; J1644; J1815; J2185; J2270; J3370; J3490; J7030; Q9967

== ENCOUNTER 2018-01-29 21:59 | Emergency (ER) | payer MEDICARE ==
[2018-01-29 22:31] LABS: BASOPHILS % (AUTO) 0.2 % (0.0-5.0); EOSINOPHILS % (AUTO) 1.2 % (0.0-8.0); HEMATOCRIT 38.5 % (36-48); LYMPHOCYTES % (AUTO) 3.6 % (21.0-51.0); MEAN CORPUSCULAR HEMOGLOBIN 29.5 pg (27.0-33.0); MEAN CORPUSCULAR VOLUME 92.3 fL (79-99); MONOCYTES % (AUTO) 5.9 % (3.0-13.0); NEUTROPHILS % (AUTO) 89.1 % (40.0-77.0); PLATELET COUNT (AUTO) 354 K/uL (130-400); RED BLOOD CELL COUNT(AUTO) 4.17 MIL/uL (4.00-5.50); RED CELL DISTRIBUTION WIDTH 18.6 % (11.0-15.5); WHITE BLOOD COUNT (AUTO) 16.3 K/uL (4.8-10.8)
[2018-01-29] MEDS ORDERED: ONDANSETRON HCL MDV 20ML 2 MG/ML VIAL ONE (22:33)
[2018-01-29] MEDS ORDERED: MORPHINE SULFATE 4 MG/1ML SYG ONE (22:34)
[2018-01-29] MEDS ORDERED: SODIUM CHLORIDE 0.9% 500ML 500 ML IV ONE (22:34)
[2018-01-29 22:41] LABS: APPEARANCE,URINE Clear (CLEAR); BILIRUBIN,URINE Negative (NEGATIVE); COLOR,URINE Yellow (YELLOW); GLUCOSE, URINE (UA) >=1000 mg/dL (NEGATIVE); KETONES,URINE Negative (NEGATIVE); LEUKOCYTE ESTERASE ,URINE Negative (NEGATIVE); NITRATE,URINE Negative (NEGATIVE); OCCULT BLOOD,URINE Small (NEGATIVE); PROTEIN,URINE >=1000 (NEGATIVE); UROBILINOGEN,URINE 0.2 mg/dL (0.2-1.0)
[2018-01-29 22:43] LABS: HCG,QUAL RESULT NEGATIVE (NEGATIVE)
[2018-01-29 22:49] LABS: ALBUMIN 2.5 g/dL (3.5-5.0); BILIRUBIN,TOTAL 0.6 mg/dL (0.2-1.0); CREATININE 4.7 mg/dL (0.5-1.5); POTASSIUM 3.7 mmol/L (3.5-5.1)
[2018-01-29 22:54] LABS: BACTERIA,URINE Few /HPF (None Seen); SQUAMOUS EPITHELIAL CELL,UR 0-2 /HPF (0-2)
[2018-01-29 23:04] LABS: AMPHET/METH SCREEN,URINE NEGATIVE (NEGATIVE); BARBITURATE SCREEN, URINE NEGATIVE (NEGATIVE); BENZODIAZEPINES SCREEN,URINE POSITIVE (NEGATIVE); CANNABINOID SCREEN,URINE NEGATIVE (NEGATIVE); COCAINE SCREEN,URINE NEGATIVE (NEGATIVE); OPIATE SCREEN,URINE NEGATIVE (NEGATIVE); PHENCYCLIDINE SCREEN,URINE NEGATIVE (NEGATIVE)
[2018-01-29] MEDS ORDERED: INSULIN HUMULIN R 100 UNIT/ML 3ML ONE (23:41)
[2018-01-29] MEDS ORDERED: INSULIN NPH 100 UNIT/ML 3ML SQ ONE (23:45)
[2018-01-30] MEDS ORDERED: PROMETHAZINE HCL 25 MG/ML 1ML AMPULE IM ONE (00:26)
[2018-01-30] MEDS ORDERED: INSULIN HUMULIN R 100 UNIT/ML 3ML ONE (01:49)
== END 2018-01-30 03:42 | disposition home or self-care (01) ==
LOC: EDH 21:59
DX: E86.0 Dehydration (principal); I12.0 Hypertensive chronic kidney disease with stage 5 chronic kidney disease or end stage renal disease; E11.22 Type 2 diabetes mellitus with diabetic chronic kidney disease; E11.65 Type 2 diabetes mellitus with hyperglycemia; N18.6 End stage renal disease; Z99.2 Dependence on renal dialysis; Z88.6 Allergy status to analgesic agent; Z90.49 Acquired absence of other specified parts of digestive tract; Z98.890 Other specified postprocedural states
CPT/HCPCS: 36415; 80053; 80305; 81001; 81025; 82948 ×3; 83690; 85025; 96372 ×2; 96374; 96375; 99284; J1815 ×3; J2270; J2550; J7040

== ENCOUNTER 2018-06-17 16:23 | Inpatient (IN) | payer MEDICARE ==
[~2018-06-17] VITALS: Ht 152.4 cm; Wt 62.3 kg
[2018-06-17] VITALS (7 sets, daily range): BP systolic 112–163; BP diastolic 65–93
[2018-06-17] MEDS ORDERED: FUROSEMIDE 10 MG/ML 4ML VIAL ONE (17:29)
[2018-06-17] MEDS ORDERED: FUROSEMIDE 10 MG/ML 2ML VIAL ONE (17:29)
[2018-06-17] MEDS ORDERED: INSULIN HUMULIN R 100 UNIT/ML 3ML ONE ×3 (17:31→20:10)
[2018-06-17 17:35] LABS: BASOPHILS % (AUTO) 1.5 % (0.0-5.0); EOSINOPHILS % (AUTO) 1.7 % (0.0-8.0); HEMATOCRIT 21.5 % (36-48); LYMPHOCYTES % (AUTO) 25.5 % (21.0-51.0); MEAN CORPUSCULAR HEMOGLOBIN 30.9 pg (27.0-33.0); MEAN CORPUSCULAR HGB CONC 32.3 g/dL (32.0-36.0); MEAN CORPUSCULAR VOLUME 95.7 fL (79-99); MONOCYTES % (AUTO) 5.9 % (3.0-13.0); NEUTROPHILS % (AUTO) 65.4 % (40.0-77.0); NUCLEATED RED BLOOD CELLS 0.2 % (0.0-0.19); PLATELET COUNT (AUTO) 325 K/uL (130-400); RED BLOOD CELL COUNT(AUTO) 2.25 MIL/uL (4.00-5.50); RED CELL DISTRIBUTION WIDTH 17.8 % (11.0-15.5); WHITE BLOOD COUNT (AUTO) 13.8 K/uL (4.8-10.8)
[2018-06-17 17:38] LABS: APPEARANCE,URINE Clear (CLEAR); BILIRUBIN,URINE Negative (NEGATIVE); COLOR,URINE Yellow (YELLOW); GLUCOSE, URINE (UA) >=1000 mg/dL (NEGATIVE); KETONES,URINE Negative (NEGATIVE); LEUKOCYTE ESTERASE ,URINE Trace (NEGATIVE); NITRATE,URINE Negative (NEGATIVE); OCCULT BLOOD,URINE Small (NEGATIVE); PH,URINE 6.5 (5.0-8.0); PROTEIN,URINE >=1000 (NEGATIVE); UROBILINOGEN,URINE 0.2 mg/dL (0.2-1.0)
[2018-06-17 17:48] LABS: INR 0.85 (0.85-1.15)
[2018-06-17 17:52] LABS: ALBUMIN 2.8 g/dL (3.5-5.0); BILIRUBIN,TOTAL 0.4 mg/dL (0.2-1.0); POTASSIUM 3.7 mmol/L (3.5-5.1); TOTAL PROTEIN, SERUM 7.6 g/dL (6.0-8.3)
[2018-06-17 17:57] LABS: CREATININE 7.9 mg/dL (0.5-1.5)
[2018-06-17 18:25] LABS: B-TYPE NATRIURETIC PEPTIDE 884 pg/mL (0-100)
[2018-06-17 18:36] LABS: BACTERIA,URINE Rare /HPF (None Seen)
[2018-06-17 18:37] LABS: SQUAMOUS EPITHELIAL CELL,UR Rare /HPF (0-2)
[2018-06-17] MEDS ORDERED: SODIUM CHLORIDE 0.9% 100 ML IV ONE (20:07)
[2018-06-17] MEDS ORDERED: HEPARIN SODIUM 5000UNIT/ML 1ML VIAL IJ PRN (21:00)
[2018-06-17] MEDS ORDERED: SODIUM CHLORIDE 0.9% 1000ML 1,000 ML IV PRN (21:00)
[2018-06-17] MEDS ORDERED: 0.9% SODIUM CHLORIDE 250 ML IV BAG IV PRN (21:00)
[2018-06-17] MEDS ORDERED: ALBUMIN (HUMAN) 25% 100 ML IV PRN (21:00)
[2018-06-17] MEDS ORDERED: DEXTROSE 50%-WATER 50 ML DISP.SYRIN IV ONE (22:08)
[2018-06-17] MEDS ORDERED: INSU100V SQ (23:17)
[2018-06-17] MEDS ORDERED: METO-391 PO (23:17)
[2018-06-17] MEDS ORDERED: CALC667C10 PO (23:17)
[2018-06-17] MEDS ORDERED: DULOXETINE PO (23:17)
[2018-06-17] MEDS ORDERED: ATROVASTATIN PO (23:17)
[2018-06-17] MEDS ORDERED: PRED20TA3 PO (23:17)
[2018-06-18] VITALS (21 sets, daily range): BP systolic 113–186; BP diastolic 63–105
[2018-06-18] MEDS ORDERED: ONDANSETRON HCL MDV 20ML 2 MG/ML VIAL IVP PRN (00:45)
[2018-06-18] MEDS ORDERED: GLUCAGON 1MG KIT 1 MG ML IM PRN (00:45)
[2018-06-18 03:33] LABS: HEMATOCRIT 25.4 % (36-48); MEAN CORPUSCULAR HEMOGLOBIN 29.8 pg (27.0-33.0); MEAN CORPUSCULAR HGB CONC 33.9 g/dL (32.0-36.0); MEAN CORPUSCULAR VOLUME 87.9 fL (79-99); NUCLEATED RED BLOOD CELLS 0.4 % (0.0-0.19); PLATELET COUNT (AUTO) 265 K/uL (130-400); RED BLOOD CELL COUNT(AUTO) 2.89 MIL/uL (4.00-5.50); RED CELL DISTRIBUTION WIDTH 16.7 % (11.0-15.5); WHITE BLOOD COUNT (AUTO) 14.8 K/uL (4.8-10.8)
[2018-06-18 03:47] LABS: CREATININE 4.7 mg/dL (0.5-1.5); POTASSIUM 3.4 mmol/L (3.5-5.1)
[2018-06-18] MEDS: FAMOTIDINE/PF 20 MG/2 ML VIAL IV SCH (08:33)
[2018-06-18] MEDS: INSULIN HUMULIN R 100 UNIT/ML 3ML SQ SCH ×4 (08:36→19:21)
[2018-06-18] MEDS ORDERED: COMPOUND IV REFRIGERATED 1 EACH IVSOLN MISC PRN (13:30)
[2018-06-18] MEDS: EPOETIN ALFA 10,000 UNIT/ML VIAL SQ SCH (14:48)
[2018-06-19] VITALS (15 sets, daily range): BP systolic 94–158; BP diastolic 57–110
[2018-06-19] MEDS: INSULIN HUMULIN R 100 UNIT/ML 3ML SQ SCH ×7 (00:30→21:50)
[2018-06-19] MEDS ORDERED: INSULIN GLARGINE 100 UNITS/ML 10 ML VIAL SQ ONE (00:30)
[2018-06-19 03:36] LABS: BASOPHILS % (AUTO) 0.8 % (0.0-5.0); EOSINOPHILS % (AUTO) 3.6 % (0.0-8.0); HEMATOCRIT 29.1 % (36-48); LYMPHOCYTES % (AUTO) 29.8 % (21.0-51.0); MEAN CORPUSCULAR HEMOGLOBIN 30.9 pg (27.0-33.0); MEAN CORPUSCULAR HGB CONC 33.6 g/dL (32.0-36.0); MEAN CORPUSCULAR VOLUME 91.8 fL (79-99); MONOCYTES % (AUTO) 5.8 % (3.0-13.0); NUCLEATED RED BLOOD CELLS 0.2 % (0.0-0.19); PLATELET COUNT (AUTO) 297 K/uL (130-400); RED BLOOD CELL COUNT(AUTO) 3.17 MIL/uL (4.00-5.50); RED CELL DISTRIBUTION WIDTH 17.6 % (11.0-15.5); WHITE BLOOD COUNT (AUTO) 10.3 K/uL (4.8-10.8)
[2018-06-19 03:43] LABS: INR 0.86 (0.85-1.15); PARTIAL THROMBOPLASTIN TIME 24.3 SEC (26.3-35.5); PROTHROMBIN TIME 9.1 SEC (9.6-11.6)
[2018-06-19 03:56] LABS: CREATININE 4.5 mg/dL (0.5-1.5); MAGNESIUM 1.9 mg/dL (1.80-2.40); PHOSPHORUS 3.1 mg/dL (2.5-4.9)
[2018-06-19] MEDS: DEXTROSE 50%-WATER 50 ML DISP.SYRIN IV PRN ×3 (05:46→11:19)
[2018-06-19] MEDS: FAMOTIDINE/PF 20 MG/2 ML VIAL IV SCH (08:31)
[2018-06-19] MEDS ORDERED: DEXTROSE 10%-WATER 1,000 ML IV SCH (11:30)
[2018-06-19] MEDS ORDERED: DEXTROSE 10%-WATER 1,000 ML IV ONE (11:34)
[2018-06-19] MEDS ORDERED: ALPRAZOLAM 0.5 MG TABLET PO PRN (13:45)
[2018-06-19] MEDS: CALCIUM ACETATE 667 MG CAPSULE PO SCH ×2 (14:00→21:48)
[2018-06-19] MEDS: EPOETIN ALFA 10,000 UNIT/ML VIAL SQ SCH (15:00)
[2018-06-19] MEDS: METOPROLOL TARTRATE 25 MG TAB PO SCH (21:48)
[2018-06-20 00:39] VITALS: BP 145/77
[2018-06-20 04:36] VITALS: BP 161/78
[2018-06-20] MEDS: INSULIN HUMULIN R 100 UNIT/ML 3ML SQ SCH ×3 (07:30→18:23)
[2018-06-20 07:51] VITALS: BP 157/81
[2018-06-20] MEDS: METOPROLOL TARTRATE 25 MG TAB PO SCH (09:00)
[2018-06-20] MEDS ORDERED: DULOXETINE HCL 30 MG CAP PO SCH (09:00)
[2018-06-20] MEDS ORDERED: FOLIC ACID/VITAMIN B COMP W-C 1 MG CAPSULE PO SCH (09:00)
[2018-06-20] MEDS ORDERED: ATORVASTATIN CALCIUM 40 MG TABLET PO SCH (09:00)
[2018-06-20] MEDS ORDERED: LOSARTAN 50 MG TABLET PO SCH (09:00)
[2018-06-20] MEDS: CALCIUM ACETATE 667 MG CAPSULE PO SCH ×2 (09:00→14:10)
[2018-06-20] MEDS: FAMOTIDINE/PF 20 MG/2 ML VIAL IV SCH (09:28)
[2018-06-20] MEDS ORDERED: LIDOCAINE HCL 1% MDV 50ML VIAL ONE (09:57)
[2018-06-20] MEDS ORDERED: HEPARIN SODIUM 1000UNIT/ML 10ML VIAL ONE (09:57)
[2018-06-20] MEDS ORDERED: IODIXANOL 320 MG/ML 100 ML VIAL ONE ×2 (10:32→11:38)
[2018-06-20] MEDS ORDERED: FENTANYL CITRATE PF 50 MCG/1 ML 2ML VIAL ONE (11:08)
[2018-06-20] MEDS ORDERED: MIDAZOLAM HCL 1 MG/ML 2ML VIAL ONE (11:08)
[2018-06-20] MEDS ORDERED: IOHEXOL-350 75 ML VIAL IV ONE (12:14)
[2018-06-20 13:26] VITALS: BP 187/114
[2018-06-20 15:55] VITALS: BP 131/72
[2018-06-20 18:17] VITALS: BP 123/58
[2018-06-20] MEDS: EPOETIN ALFA 10,000 UNIT/ML VIAL SQ SCH (18:21)
== END 2018-06-20 18:50 | disposition home or self-care (01) | DRG 637 ==
LOC: EDH 16:23 → EDHIP 18:22 → 2CH 20:56 → 2AH 06-19 16:18
PROVIDERS: ADMIT Internal Medicine Nephrology; ATTEND Internal Medicine Nephrology
PROC: 30233N1 Transfusion of Nonautologous Red Blood Cells into Peripheral Vein, Percutaneous Approach (ICD-10-PCS; 2018-06-17)
PROC: 5A1D70Z Performance of Urinary Filtration, Intermittent, Less than 6 Hours Per Day (ICD-10-PCS; 2018-06-17)
PROC: 5A1D70Z Performance of Urinary Filtration, Intermittent, Less than 6 Hours Per Day (ICD-10-PCS; 2018-06-18)
PROC: B5181ZA Fluoroscopy of Superior Vena Cava using Low Osmolar Contrast, Guidance (ICD-10-PCS; principal; 2018-06-20)
PROC: B5191ZA Fluoroscopy of Inferior Vena Cava using Low Osmolar Contrast, Guidance (ICD-10-PCS; 2018-06-20)
PROC: 5A1D70Z Performance of Urinary Filtration, Intermittent, Less than 6 Hours Per Day (ICD-10-PCS; 2018-06-20)
DX: E11.00 Type 2 diabetes mellitus with hyperosmolarity without nonketotic hyperglycemic-hyperosmolar coma (NKHHC) (principal); N18.6 End stage renal disease; I82.210 Acute embolism and thrombosis of superior vena cava; I12.0 Hypertensive chronic kidney disease with stage 5 chronic kidney disease or end stage renal disease; E87.0 Hyperosmolality and hypernatremia; I87.1 Compression of vein; D64.9 Anemia, unspecified; E11.51 Type 2 diabetes mellitus with diabetic peripheral angiopathy without gangrene; E11.65 Type 2 diabetes mellitus with hyperglycemia; E11.22 Type 2 diabetes mellitus with diabetic chronic kidney disease; E78.5 Hyperlipidemia, unspecified; E87.70 Fluid overload, unspecified; F41.9 Anxiety disorder, unspecified; F32.9 Major depressive disorder, single episode, unspecified; Z99.2 Dependence on renal dialysis; Z91.19 Patient's noncompliance with other medical treatment and regimen; Z87.441 Personal history of nephrotic syndrome; Z83.3 Family history of diabetes mellitus
CPT/HCPCS: 36010; 36415; 71045; 71275; 75825; 75827; 80048; 80053; 81001; 82009; 82947; 82948; 83735; 83880; 84100; 84484; 85025; 85027; 85610; 85730; 86850; 86900; 86901; 86922; 90935; 93005; 99156; 99157; C1769; C1894; J0885; J1644; J1815; J1940; J2250; J3010; J3490; J7030; J7070; P9016; Q9967

== ENCOUNTER 2018-07-14 22:05 | Emergency (ER) | payer MEDICARE ==
[~2018-07-14 22:05] MED LIST changes: +ATROVASTATIN PO; +CALC667C10 PO; -GABA-529 PO; +INSU100V SQ; +METO-391 PO; -METO100T14 PO
== END 2018-07-14 23:20 | disposition left against medical advice (07) ==
LOC: EDH 22:05
DX: E11.649 Type 2 diabetes mellitus with hypoglycemia without coma (principal); R55 Syncope and collapse; R53.1 Weakness; R61 Generalized hyperhidrosis; I12.0 Hypertensive chronic kidney disease with stage 5 chronic kidney disease or end stage renal disease; E11.22 Type 2 diabetes mellitus with diabetic chronic kidney disease; F41.9 Anxiety disorder, unspecified; F32.9 Major depressive disorder, single episode, unspecified; Z88.6 Allergy status to analgesic agent; N18.6 End stage renal disease; Z90.49 Acquired absence of other specified parts of digestive tract; Z98.890 Other specified postprocedural states; Z99.2 Dependence on renal dialysis
CPT/HCPCS: 82948; 99282

== ENCOUNTER 2019-02-11 02:42 | Inpatient (IN) | payer MEDICARE ==
[~2019-02-11] VITALS: Ht 152.4 cm; Wt 74.8 kg
[~2019-02-11 02:42] MED LIST changes: +LEVO250T59 PO; +METF500S7 PO
[2019-02-11] MEDS ORDERED: MORPHINE SULFATE 2 MG/ML 1ML SYG ONE (04:35)
[2019-02-11 05:07] LABS: BASOPHILS % (AUTO) 0.9 % (0.0-5.0); EOSINOPHILS % (AUTO) 3.5 % (0.0-8.0); HEMATOCRIT 31.9 % (36-48); LYMPHOCYTES % (AUTO) 15.3 % (21.0-51.0); MEAN CORPUSCULAR HEMOGLOBIN 29.8 pg (27.0-33.0); MEAN CORPUSCULAR HGB CONC 32.5 g/dL (32.0-36.0); MEAN CORPUSCULAR VOLUME 91.7 fL (79-99); MONOCYTES % (AUTO) 7.3 % (3.0-13.0); PLATELET COUNT (AUTO) 430 K/uL (130-400); RED BLOOD CELL COUNT(AUTO) 3.48 MIL/uL (4.00-5.50); RED CELL DISTRIBUTION WIDTH 20.2 % (11.0-15.5); WHITE BLOOD COUNT (AUTO) 11.8 K/uL (4.8-10.8)
[2019-02-11 05:21] LABS: ALBUMIN 2.9 g/dL (3.5-5.0); BILIRUBIN,TOTAL 0.3 mg/dL (0.2-1.0); POTASSIUM 4.5 mmol/L (3.5-5.1); TOTAL PROTEIN, SERUM 7.5 g/dL (6.0-8.3)
[2019-02-11 05:23] LABS: CREATININE 10.3 mg/dL (0.5-1.5)
[2019-02-11] MEDS ORDERED: IOHEXOL-350 75 ML VIAL IV ONE (05:25)
[2019-02-11 05:40] LABS: APPEARANCE,URINE Clear (CLEAR); BILIRUBIN,URINE Negative (NEGATIVE); COLOR,URINE Yellow (YELLOW); GLUCOSE, URINE (UA) >=1000 mg/dL (NEGATIVE); KETONES,URINE Negative (NEGATIVE); LEUKOCYTE ESTERASE ,URINE Moderate (NEGATIVE); NITRATE,URINE Positive (NEGATIVE); OCCULT BLOOD,URINE Small (NEGATIVE); PROTEIN,URINE >=1000 mg/dL (NEGATIVE); UROBILINOGEN,URINE 0.2 mg/dL (0.2-1.0)
[2019-02-11 05:46] LABS: BACTERIA,URINE Few /HPF (None Seen); MUCUS,URINE Few LPF (None Seen); RENAL EPITHELIAL CELLS,URINE Moderate /HPF (None Seen); SQUAMOUS EPITHELIAL CELL,UR Few /HPF (0-2); WBC,URINE 26-50 /HPF (0-1)
[2019-02-11] MEDS ORDERED: MORPHINE SULFATE 4 MG/1ML SYG ONE (06:56)
[2019-02-11] MEDS ORDERED: GLUCAGON 1MG KIT 1 MG ML IM PRN (08:00)
[2019-02-11 08:51] VITALS: BP 168/99
[2019-02-11] MEDS ORDERED: PANTOPRAZOLE 40 MG/VIAL IVP SCH (09:00)
[2019-02-11] MEDS: HYDROMORPHONE 1 MG/1 ML AMP IVP PRN ×3 (10:29→22:31)
[2019-02-11] MEDS: INSULIN R PO SS1 SQ SCH ×4 (11:30→20:49)
--- NOTE | 2019-02-11 11:50 | NUR ---
DR AQUINO ROUNDED ON PATIENT ORDERED CBC, CMP, PHOS, MAG, TSH, AC1
[2019-02-11 12:01] VITALS: BP 160/108
[2019-02-11] MEDS ORDERED: HEPARIN SODIUM 5000UNIT/ML 1ML VIAL ONE (12:52)
[2019-02-11] MEDS ORDERED: HYDR-3420 PO (15:05)
[2019-02-11] MEDS ORDERED: GABA-531 PO (15:05)
[2019-02-11] MEDS ORDERED: SUCR500T PO (15:05)
[2019-02-11 16:42] VITALS: BP 180/96
[2019-02-11] MEDS: INSULIN NPH 100 UNIT/ML 3ML SQ SCH (17:05)
[2019-02-11] MEDS: INSULIN LISPRO 100 UNIT/ML 3ML SQ SCH (17:07)
[2019-02-11 20:00] VITALS: BP 174/99
[2019-02-11] MEDS: GABAPENTIN 300 MG CAPSULE PO SCH (20:42)
[2019-02-11] MEDS: HYDRALAZINE HCL 10 MG TABLET PO SCH (20:43)
--- NOTE | 2019-02-11 20:45 | NUR ---
MEDS DUE MEDS ADMINISTERED, TOLERATED WELL. PT REFUSED INSULIN DOSE AT THIS TIME EVEN IF BLOOD OSVSM=151. 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 WASTED INSULIN DOSE. KEPT RESTED AND COMFORTABLE. CALL LIGHT WITHIN REACH.
[2019-02-11] MEDS ORDERED: CALCIUM ACETATE 667 MG CAPSULE PO SCH (21:00)
--- NOTE | 2019-02-11 22:15 | NUR ---
PAGED PT CLAIMS OF LEFT SIDE PAINS. PAIN MED IS NOT YET DUE. PT'S BP ALSO ELEVATED ON RE-CHECK AT 169/109, HR=85. PAGED DR MCGRAW VIA ANSWERING SERVICE. CALLED BACK AND REFERRED PT'S COMPLAINTS AND CONDITION. A DOSE OF 0.5MG DILAUDID IV AND NORVASC 10MG PO ORDERED. WILL MEDICATE PT.
[2019-02-11] MEDS ORDERED: AMLODIPINE BESYLATE 5 MG TAB PO ONE (22:27)
[2019-02-11] MEDS ORDERED: HYDROMORPHONE 1 MG/1 ML AMP IVP ONE (22:30)
[2019-02-11] MEDS ORDERED: AMLODIPINE BESYLATE 5 MG TAB PO SCH (22:30)
[2019-02-12] VITALS: BP 114/86
--- NOTE | 2019-02-12 02:15 | NUR ---
LOW PT FOUND UNABLE TO AWAKEN EVEN WITH DEEP PAIN STIMULATION. VERY DIAPHORETIC AND IS DROOLING. V/S MONITORED AND O2 SAT=82 ON ROOM AIR. BLOOD SUGAR CHECKED AND IS 12. D50 50ML ADMINISTERED IV. PLACED PT ON O2 AT 2LPM VIA NC. PT SLOWLY AWAKENED AND ENCOURAGED TO TAKE DEEP BREATHS. APPLE JUICE GIVEN TO DRINK. CHANGED WET CLOTHES AND LINEN. PCP ASKED TO PROVIDE PT FOOD. SANDWICH PROVIDED. ORDERED STAT LAB BLOOD DRAW. WILL RE-ASSESS PT.
[2019-02-12] MEDS: DEXTROSE 50%-WATER 50 ML DISP.SYRIN IV PRN (02:16)
--- NOTE | 2019-02-12 02:30 | NUR ---
RE-ASSESS PT IS AAOX3, EATING HER SANDWICH. BLOOD DRAWN BY LAB. MEDICAL ANTHROPOLOGY DIRECTOR MADE AWARE OF PT'S BLOOD SUGAR DROP AND INTERVENTIONS GIVEN. PT'S O2 SAT IMPROVED TO LOW 90'S WITH O2 AT 2LPM VIA NC. WILL MONITOR CLOSELY.
[2019-02-12 02:54] LABS: HEMATOCRIT 36.6 % (36-48); MEAN CORPUSCULAR HEMOGLOBIN 29.8 pg (27.0-33.0); MEAN CORPUSCULAR HGB CONC 32.3 g/dL (32.0-36.0); MEAN CORPUSCULAR VOLUME 92.3 fL (79-99); PLATELET COUNT (AUTO) 410 K/uL (130-400); RED BLOOD CELL COUNT(AUTO) 3.97 MIL/uL (4.00-5.50); RED CELL DISTRIBUTION WIDTH 20.5 % (11.0-15.5); WHITE BLOOD COUNT (AUTO) 7.6 K/uL (4.8-10.8)
[2019-02-12 03:02] LABS: HEMOGLOBIN A1C 11.1 % (4.0-6.0)
[2019-02-12 03:13] LABS: ALBUMIN 2.8 g/dL (3.5-5.0); BILIRUBIN,TOTAL 0.3 mg/dL (0.2-1.0); CREATININE 7.3 mg/dL (0.5-1.5); MAGNESIUM 2.3 mg/dL (1.80-2.40); PHOSPHORUS 7.3 mg/dL (2.5-4.9); POTASSIUM 3.3 mmol/L (3.5-5.1); THYROID STIMULATING HORMONE 3.15 uIU/mL (0.36-3.74); TOTAL PROTEIN, SERUM 7.6 g/dL (6.0-8.3)
[2019-02-12 04:00] VITALS: BP 111/63
--- NOTE | 2019-02-12 04:05 | NUR ---
PAIN PT COMPLAINTS OF PAINS ON HER LEFT SIDE. MEDICATED WITH DILAUDID IV. KEPT RESTED AND COMFORTABLE IN BED. RE-ITERATED FALL PRECAUTIONS. CALL LIGHT WITHIN REACH. WILL RE-ASSESS PT. Addendum: 02/12/19 at 0418 by FAYE JANE RN RN Amended: Links added.
[2019-02-12] MEDS: HYDROMORPHONE 1 MG/1 ML AMP IVP PRN ×4 (04:06→23:40)
--- NOTE | 2019-02-12 07:00 | NUR ---
REPORT REPORT GIVEN TO AM SHIFT, VALENTIN JOYCE. NURSE'S ROUNDS DONE. ENDORSED AM INSULIN DOSES TO BE GIVEN WITH BREAKFAST PT'S BLOOD SUGAR HAD DROPPED IN EARLY AM AND NEEDED PT GIVE PT D50 AND FOOD. FOR MORE CARE.
[2019-02-12] MEDS: INSULIN R PO SS1 SQ SCH ×4 (07:30→21:00)
[2019-02-12 08:00] VITALS: BP 134/65
[2019-02-12] MEDS: SUCROFERRIC OXYHYDROXIDE PO SCH ×3 (08:00→17:00)
[2019-02-12] MEDS: INSULIN NPH 100 UNIT/ML 3ML SQ SCH ×2 (09:04→17:09)
[2019-02-12] MEDS: INSULIN LISPRO 100 UNIT/ML 3ML SQ SCH ×3 (09:05→17:09)
[2019-02-12] MEDS: CALCIUM ACETATE 667 MG CAPSULE PO SCH ×3 (09:29→17:22)
[2019-02-12] MEDS: DULOXETINE HCL 30 MG CAP PO SCH (09:30)
[2019-02-12] MEDS: HYDRALAZINE HCL 10 MG TABLET PO SCH ×2 (09:30→21:36)
[2019-02-12] MEDS: FOLIC ACID/VITAMIN B COMP W-C 1 MG CAPSULE PO SCH (09:30)
[2019-02-12] MEDS: GABAPENTIN 300 MG CAPSULE PO SCH ×2 (09:31→21:36)
[2019-02-12] MEDS: PANTOPRAZOLE SODIUM 40 MG TABLET.DR PO SCH (09:31)
[2019-02-12 11:15] LABS: HEPATITIS A ANTIBODY IGM Negative (Negative); HEPATITIS B CORE IGM Negative (Negative); HEPATITIS Bs ANTIGEN SCREEN P Negative (Negative)
[2019-02-12 12:00] VITALS: BP 129/68
[2019-02-12] MEDS: CEFTRIAXONE SODIUM 1 GM IVP SCH (13:55)
[2019-02-12 16:00] VITALS: BP 140/74
--- NOTE | 2019-02-12 17:41 | NUR ---
DCP CM met with pt discussed dc plans. Pt is independent prior to admission, lives at home alone, grandmother and aunt lives close by. Has a provider 22hrs/wk, goes to [facility] for dialysis. Denies any other equipments/services. Pt feels safe to go back home, family assists with transportation and needs as necessary. DC plan to home once stable. CM to cont to follow up. Addendum: 02/12/19 at 1743 by KAYLA CHEN LVN CM Amended: Links added.
[2019-02-12 19:48] VITALS: BP 124/69
[2019-02-13] VITALS (7 sets, daily range): BP systolic 127–167; BP diastolic 68–95
[2019-02-13] MEDS: HYDROMORPHONE 1 MG/1 ML AMP IVP PRN ×3 (05:33→17:34)
[2019-02-13 05:53] LABS: HEMATOCRIT 33.4 % (36-48); MEAN CORPUSCULAR HEMOGLOBIN 30.1 pg (27.0-33.0); MEAN CORPUSCULAR HGB CONC 32.5 g/dL (32.0-36.0); MEAN CORPUSCULAR VOLUME 92.6 fL (79-99); PLATELET COUNT (AUTO) 433 K/uL (130-400); RED BLOOD CELL COUNT(AUTO) 3.61 MIL/uL (4.00-5.50); RED CELL DISTRIBUTION WIDTH 20.9 % (11.0-15.5); WHITE BLOOD COUNT (AUTO) 10.1 K/uL (4.8-10.8)
[2019-02-13 06:05] LABS: POTASSIUM 5.5 mmol/L (3.5-5.1)
[2019-02-13 06:10] LABS: CREATININE 9.4 mg/dL (0.5-1.5)
[2019-02-13] MEDS: INSULIN NPH 100 UNIT/ML 3ML SQ SCH ×2 (06:52→17:33)
[2019-02-13] MEDS: INSULIN LISPRO 100 UNIT/ML 3ML SQ SCH ×3 (07:30→17:36)
[2019-02-13] MEDS: INSULIN R PO SS1 SQ SCH ×4 (07:30→21:00)
[2019-02-13] MEDS ORDERED: 0.9% SODIUM CHLORIDE 1000 ML IV BAG IV PRN (07:45)
[2019-02-13] MEDS ORDERED: HEPARIN SODIUM 5000UNIT/ML 1ML VIAL IJ PRN ×2 (07:45)
[2019-02-13] MEDS ORDERED: SODIUM CHLORIDE 0.9% 1000ML 1,000 ML IV PRN (07:45)
[2019-02-13] MEDS ORDERED: NITROGLYCERIN 0.4 MG SL TAB SL PRN (07:45)
[2019-02-13] MEDS ORDERED: LIDOCAINE HCL-MPF 1% 2ML VIAL IJ PRN (08:00)
[2019-02-13] MEDS: SUCROFERRIC OXYHYDROXIDE PO SCH ×3 (08:00→17:00)
[2019-02-13] MEDS: CALCIUM ACETATE 667 MG CAPSULE PO SCH ×3 (08:00→17:31)
[2019-02-13] MEDS ORDERED: ACETAMINOPHEN 325 MG TAB PO PRN (08:00)
[2019-02-13] MEDS: HYDRALAZINE HCL 10 MG TABLET PO SCH ×2 (09:00→22:15)
[2019-02-13] MEDS: GABAPENTIN 300 MG CAPSULE PO SCH ×2 (09:00→22:15)
[2019-02-13] MEDS: CEFTRIAXONE SODIUM 1 GM IVP SCH (12:14)
[2019-02-13] MEDS: FOLIC ACID/VITAMIN B COMP W-C 1 MG CAPSULE PO SCH (12:31)
[2019-02-13] MEDS: PANTOPRAZOLE SODIUM 40 MG TABLET.DR PO SCH (12:31)
[2019-02-13] MEDS: DULOXETINE HCL 30 MG CAP PO SCH (12:32)
[2019-02-14] VITALS: BP 140/78
[2019-02-14] MEDS: HYDROMORPHONE 1 MG/1 ML AMP IVP PRN ×4 (00:15→21:44)
[2019-02-14 04:00] VITALS: BP 139/80
[2019-02-14 05:32] LABS: HEMATOCRIT 33.4 % (36-48); MEAN CORPUSCULAR HEMOGLOBIN 29.7 pg (27.0-33.0); MEAN CORPUSCULAR HGB CONC 31.5 g/dL (32.0-36.0); MEAN CORPUSCULAR VOLUME 94.5 fL (79-99); NUCLEATED RED BLOOD CELLS 0.1 % (0.0-0.19); PLATELET COUNT (AUTO) 365 K/uL (130-400); RED BLOOD CELL COUNT(AUTO) 3.54 MIL/uL (4.00-5.50); RED CELL DISTRIBUTION WIDTH 21.3 % (11.0-15.5); WHITE BLOOD COUNT (AUTO) 8.8 K/uL (4.8-10.8)
[2019-02-14 05:36] LABS: CREATININE 7.1 mg/dL (0.5-1.5); PHOSPHORUS 6.9 mg/dL (2.5-4.9)
[2019-02-14] MEDS: INSULIN NPH 100 UNIT/ML 3ML SQ SCH ×2 (06:33→17:00)
[2019-02-14] MEDS: INSULIN R PO SS1 SQ SCH ×4 (07:30→21:00)
[2019-02-14] MEDS: SUCROFERRIC OXYHYDROXIDE PO SCH ×3 (08:00→17:00)
[2019-02-14 08:02] VITALS: BP 160/86
[2019-02-14] MEDS: GABAPENTIN 300 MG CAPSULE PO SCH ×2 (08:34→21:42)
[2019-02-14] MEDS: FOLIC ACID/VITAMIN B COMP W-C 1 MG CAPSULE PO SCH (08:35)
[2019-02-14] MEDS: DULOXETINE HCL 30 MG CAP PO SCH (08:35)
[2019-02-14] MEDS: PANTOPRAZOLE SODIUM 40 MG TABLET.DR PO SCH (08:35)
[2019-02-14] MEDS: HYDRALAZINE HCL 10 MG TABLET PO SCH ×2 (08:35→21:42)
[2019-02-14] MEDS: CALCIUM ACETATE 667 MG CAPSULE PO SCH ×3 (08:35→17:26)
[2019-02-14] MEDS: INSULIN LISPRO 100 UNIT/ML 3ML SQ SCH ×3 (08:45→17:00)
--- NOTE | 2019-02-14 08:47 | NUR ---
INSULIN/HOME MEDICATIONS Patient refused the 8 units of regular insulin per sliding scale due this morning for blood sugar level 238mg/dL. She stated her blood sugar will drop. Administered only 5 units of humalog as scheduled. She also received 20 units of N insulin administered by night nurse before leaving this morning. Also, patient was informed that hospital does not carry velphoro and metoprolol and to please ask someone from her household to bring them so we can submit those medications to pharmacy for administration as she needs them but we don't have them; she verbalized and demonstrated understanding.
[2019-02-14 11:23] VITALS: BP 140/90
[2019-02-14] MEDS: CEFTRIAXONE SODIUM 1 GM IVP SCH (13:10)
[2019-02-14 16:41] VITALS: BP 171/97
--- NOTE | 2019-02-14 18:15 | NUR ---
SURGICAL CONSULT Dr. Estevez was notified of consult. Per floor medical assistant secretary, he is aware and will see patient.
[2019-02-14 20:00] VITALS: BP 163/101
--- NOTE | 2019-02-14 21:30 | NUR ---
SURGICAL CONSULT DR. 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 PT SEEN AND EXAMINED, STATED THAT HE DOESN'T SEE THE NEED FOR ANY SURGICAL INTERVENTION AT THIS POINT. NO NAUSEA AND VOMITING, PT TOLERATING PO INTAKE WELL, JUST THE PERSISTENT LEFT SIDE PAIN. WAS CONSIDERING A CT OF THE ABDOMEN WITH CONTRAST BUT PT WITH ESRD AND THIS WOULDN'T BE POSSIBLE. PT CONTINUES TO ASK FOR HER PAIN MED DILAUDID 0.5 MG IV Q 6 HRS LIKE BEFORE.BLOOD SUGAR AT HS WAS AT 230, NO INSULIN COVERAGE GIVEN SINCE THE PT IS A BRITTLE DIABETIC AND DROPS SUGAR EASILY IN THE MIDDLE OF THE NIGHT, WILL CONTINUE TO MONITOR CLOSELY, PENDING A HEMODIALYSIS FOR THIS AM.
[2019-02-15] VITALS (7 sets, daily range): BP systolic 161–202; BP diastolic 82–110
[2019-02-15 04:42] LABS: HEMATOCRIT 33.4 % (36-48); MEAN CORPUSCULAR HEMOGLOBIN 30.8 pg (27.0-33.0); MEAN CORPUSCULAR HGB CONC 32.9 g/dL (32.0-36.0); MEAN CORPUSCULAR VOLUME 93.6 fL (79-99); PLATELET COUNT (AUTO) 320 K/uL (130-400); RED BLOOD CELL COUNT(AUTO) 3.56 MIL/uL (4.00-5.50)
[2019-02-15 04:58] LABS: ALBUMIN 2.6 g/dL (3.5-5.0); BILIRUBIN,TOTAL 0.4 mg/dL (0.2-1.0); TOTAL PROTEIN, SERUM 7.4 g/dL (6.0-8.3)
[2019-02-15 05:04] LABS: CREATININE 9.3 mg/dL (0.5-1.5)
[2019-02-15] MEDS: HYDROMORPHONE 1 MG/1 ML AMP IVP PRN ×4 (05:07→23:47)
[2019-02-15] MEDS: INSULIN NPH 100 UNIT/ML 3ML SQ SCH ×2 (07:30→17:34)
[2019-02-15] MEDS: INSULIN R PO SS1 SQ SCH ×4 (07:30→21:00)
[2019-02-15] MEDS: INSULIN LISPRO 100 UNIT/ML 3ML SQ SCH ×3 (07:30→16:32)
[2019-02-15] MEDS: SUCROFERRIC OXYHYDROXIDE PO SCH ×3 (08:00→16:21)
[2019-02-15] MEDS: HYDRALAZINE HCL 10 MG TABLET PO SCH ×3 (09:00→20:48)
[2019-02-15] MEDS: PANTOPRAZOLE SODIUM 40 MG TABLET.DR PO SCH (09:11)
[2019-02-15] MEDS: DULOXETINE HCL 30 MG CAP PO SCH (09:12)
[2019-02-15] MEDS: CALCIUM ACETATE 667 MG CAPSULE PO SCH ×3 (09:12→16:31)
[2019-02-15] MEDS: GABAPENTIN 300 MG CAPSULE PO SCH ×2 (09:12→20:47)
[2019-02-15] MEDS: FOLIC ACID/VITAMIN B COMP W-C 1 MG CAPSULE PO SCH (09:12)
[2019-02-15] MEDS: CEFTRIAXONE SODIUM 1 GM IVP SCH (11:10)
[2019-02-15] MEDS: ONDANSETRON HCL 4 MG/2 ML VIAL IVP PRN (11:11)
--- NOTE | 2019-02-15 16:10 | NUR ---
PAGED DR. LIZETTE MCGRAW. WAITING FOR CALL BACK.
--- NOTE | 2019-02-15 16:23 | NUR ---
DR. MCGRAW CALLED BACK. INFORMED HIM OF PATIENT'S HIGH BLOOD PRESSURE OF 202/101. PATIENT C/O HEADACHE. DR. MCGRAW ORDERED CLONIDINE 0.1 PO NOW. WILL CONTINUE TO MONITOR PATIENT CLOSELY.
[2019-02-15] MEDS ORDERED: CLONIDINE HCL 0.1 MG TABLET ONE (16:29)
[2019-02-15] MEDS ORDERED: CLONIDINE HCL 0.1 MG TABLET PO SCH (16:30)
--- NOTE | 2019-02-15 17:30 | NUR ---
RE-CHECKED PT'S BP: 161-61 PULSE 92. WILL CONTINUE TO MONITOR CLOSELY
[2019-02-15] MEDS: CLONIDINE HCL 0.1 MG TABLET PO PRN (23:57)
[2019-02-16 04:00] VITALS: BP 183/94
[2019-02-16] MEDS: HYDROMORPHONE 1 MG/1 ML AMP IVP PRN ×3 (05:46→18:40)
[2019-02-16] MEDS: INSULIN R PO SS1 SQ SCH ×4 (06:00→20:15)
--- NOTE | 2019-02-16 06:44 | NUR ---
Notified Dr. Proctor re: blood sugar of 1028, 16 units of Regular insulin given per protocol. No orders received but to check to check sugar again in 2 hours. Addendum: 02/16/19 at 0648 by JHON WATT RN Amended: Links added.
[2019-02-16 08:00] VITALS: BP 183/111
[2019-02-16] MEDS: SUCROFERRIC OXYHYDROXIDE PO SCH ×3 (08:00→16:32)
--- NOTE | 2019-02-16 08:00 | NUR ---
BLOOD SUGAR RE-CHECKED. RESULT: >600. LUCIEN BARBER NOTIFIED. ORDERED 16 UNITS OF REGULAR INSULIN AND TO GIVE PATIENT'S INSULIN SCHEDULED. WILL CONTINUE TO MONITOR.
[2019-02-16] MEDS: GABAPENTIN 300 MG CAPSULE PO SCH ×2 (08:46→20:13)
[2019-02-16] MEDS: CALCIUM ACETATE 667 MG CAPSULE PO SCH ×3 (08:46→17:06)
[2019-02-16] MEDS: DULOXETINE HCL 30 MG CAP PO SCH (08:46)
[2019-02-16] MEDS: FOLIC ACID/VITAMIN B COMP W-C 1 MG CAPSULE PO SCH (08:47)
[2019-02-16] MEDS: HYDRALAZINE HCL 10 MG TABLET PO SCH ×2 (08:47→20:14)
[2019-02-16] MEDS: PANTOPRAZOLE SODIUM 40 MG TABLET.DR PO SCH (08:47)
[2019-02-16] MEDS ORDERED: INSULIN HUMULIN R 100 UNIT/ML 3ML SQ SCH (09:00)
--- NOTE | 2019-02-16 09:00 | NUR ---
BLOOD SUGAR RECHECKED >600. RANDOM GLUCOSE ORDERED.
[2019-02-16] MEDS: INSULIN LISPRO 100 UNIT/ML 3ML SQ SCH ×3 (09:36→17:07)
[2019-02-16] MEDS: INSULIN NPH 100 UNIT/ML 3ML SQ SCH ×2 (09:36→17:00)
--- NOTE | 2019-02-16 10:00 | NUR ---
QIANA GLUCOSE 678. DR. MCGRAW ORDERS TO TRANSFER PATIENT TO ICU WITH INSULIN DRIP. HEMATOLOGY NURSE AWARE.
[2019-02-16 10:36] LABS: BASOPHILS % (AUTO) 0.8 % (0.0-5.0); EOSINOPHILS % (AUTO) 4.6 % (0.0-8.0); HEMATOCRIT 30.9 % (36-48); LYMPHOCYTES % (AUTO) 18.3 % (21.0-51.0); MEAN CORPUSCULAR HEMOGLOBIN 30.3 pg (27.0-33.0); MEAN CORPUSCULAR HGB CONC 32.1 g/dL (32.0-36.0); MEAN CORPUSCULAR VOLUME 94.5 fL (79-99); MONOCYTES % (AUTO) 7.7 % (3.0-13.0); NEUTROPHILS % (AUTO) 68.6 % (40.0-77.0); PLATELET COUNT (AUTO) 260 K/uL (130-400); RED BLOOD CELL COUNT(AUTO) 3.27 MIL/uL (4.00-5.50); RED CELL DISTRIBUTION WIDTH 20.3 % (11.0-15.5); WHITE BLOOD COUNT (AUTO) 8.2 K/uL (4.8-10.8)
[2019-02-16 10:54] LABS: CARBON DIOXIDE 25 mmol/L (21-32); CHLORIDE 91 mmol/L (101-111); GLOMERULAR FILTR. RATE CALC 6 mL/min (>60); POTASSIUM 4.5 mmol/L (3.5-5.1); SODIUM SERUM 126 mmol/L (136-145); UREA NITROGEN, BLOOD 43 mg/dL (7-18)
[2019-02-16 10:58] LABS: GLUCOSE,RANDOM 626 mg/dL (70-105)
[2019-02-16] MEDS: CEFTRIAXONE SODIUM 1 GM IVP SCH (11:26)
--- NOTE | 2019-02-16 11:31 | NUR ---
RE-CHECKED PATIENT'S BLOOD GLUCOSE. 382. PATIENT RESTING COMFORTABLE, NO DISTRESS NOTED.
[2019-02-16 12:00] VITALS: BP 153/93
--- NOTE | 2019-02-16 14:41 | NUR ---
BLOOD GLUCOSE RECHECKED 175. TRANSFER TO ICU CANCELLED. WILL CONTINUE TO MONITOR CLOSELY.
[2019-02-16 16:00] VITALS: BP 159/91
[2019-02-16 19:48] VITALS: BP 169/102
[2019-02-16 22:20] VITALS: BP 168/97
[2019-02-17] VITALS: BP 166/92
[2019-02-17] MEDS: HYDROMORPHONE 1 MG/1 ML AMP IVP PRN ×4 (00:29→20:32)
[2019-02-17] MEDS: CLONIDINE HCL 0.1 MG TABLET PO PRN ×2 (00:32→20:34)
[2019-02-17 04:00] VITALS: BP 153/86
[2019-02-17 07:00] VITALS: BP 153/78
[2019-02-17 07:05] LABS: HEMATOCRIT 30.4 % (36-48); MEAN CORPUSCULAR HEMOGLOBIN 30.3 pg (27.0-33.0); MEAN CORPUSCULAR HGB CONC 32.6 g/dL (32.0-36.0); MEAN CORPUSCULAR VOLUME 92.9 fL (79-99); PLATELET COUNT (AUTO) 246 K/uL (130-400); RED BLOOD CELL COUNT(AUTO) 3.27 MIL/uL (4.00-5.50); RED CELL DISTRIBUTION WIDTH 20.2 % (11.0-15.5); WHITE BLOOD COUNT (AUTO) 8.9 K/uL (4.8-10.8)
[2019-02-17 07:33] LABS: PHOSPHORUS 7.3 mg/dL (2.5-4.9); POTASSIUM 5.2 mmol/L (3.5-5.1)
[2019-02-17 07:42] LABS: BASOPHILS % (MANUAL) 1 % (0-2); EOSINOPHILS % (MANUAL) 1 % (1-6); LYMPHOCYTES % (MANUAL) 24 % (22-44); MAN.DIFF COMMENT-IMPRESSION MANUAL DIFFERENTIAL; MONOCYTES % (MANUAL) 3 % (2-9); PLATELET MORPHOLOGY COMMENT ADEQUATE; SEGMENTED NEUTROPHILS % 71 % (40-70)
[2019-02-17] MEDS: SUCROFERRIC OXYHYDROXIDE PO SCH ×3 (08:00→16:28)
[2019-02-17] MEDS: PANTOPRAZOLE SODIUM 40 MG TABLET.DR PO SCH (08:06)
[2019-02-17] MEDS: FOLIC ACID/VITAMIN B COMP W-C 1 MG CAPSULE PO SCH (08:06)
[2019-02-17] MEDS: GABAPENTIN 300 MG CAPSULE PO SCH ×2 (08:07→20:33)
[2019-02-17] MEDS: HYDRALAZINE HCL 10 MG TABLET PO SCH ×2 (08:07→20:33)
[2019-02-17] MEDS: DULOXETINE HCL 30 MG CAP PO SCH (08:07)
[2019-02-17] MEDS: CALCIUM ACETATE 667 MG CAPSULE PO SCH ×3 (08:07→16:28)
[2019-02-17] MEDS: INSULIN LISPRO 100 UNIT/ML 3ML SQ SCH ×3 (08:20→16:28)
[2019-02-17] MEDS: INSULIN R PO SS1 SQ SCH ×4 (08:20→20:40)
[2019-02-17] MEDS: INSULIN NPH 100 UNIT/ML 3ML SQ SCH ×2 (08:20→16:28)
[2019-02-17 11:00] VITALS: BP 165/90
[2019-02-17] MEDS: CEFTRIAXONE SODIUM 1 GM IVP SCH (12:00)
[2019-02-17] MEDS: DEXTROSE 50%-WATER 50 ML DISP.SYRIN IV PRN (15:47)
--- NOTE | 2019-02-17 15:49 | NUR ---
HYPOGLYCEMIA PATIENT REPORTED FEELING LIKE "PASSING OUT". VITAL SIGNS CHECKED, ALL WNL. GLUCOSE CHECKED: 45. PATIENT IS NPO WAITING FOR A PROCEDURE. HALF OF D50 SYRINGE GIVEN. BLOOD SUGAR RECHECKED IN 15 MINUTES: 99. PATIENT STATES SHE FEELS BETTER. WILL CONTINUE TO MONITOR CLOSELY.
[2019-02-17 16:00] VITALS: BP 166/95
[2019-02-17] MEDS ORDERED: IOHEXOL-350 75 ML VIAL IV ONE (16:08)
[2019-02-17 20:00] VITALS: BP 192/111
[2019-02-18] MEDS: HYDROMORPHONE 1 MG/1 ML AMP IVP PRN ×3 (03:29→17:02)
[2019-02-18 04:00] VITALS: BP 155/86
[2019-02-18 04:57] LABS: HEMATOCRIT 31.1 % (36-48); MEAN CORPUSCULAR HEMOGLOBIN 29.4 pg (27.0-33.0); MEAN CORPUSCULAR HGB CONC 32.1 g/dL (32.0-36.0); MEAN CORPUSCULAR VOLUME 91.7 fL (79-99); PLATELET COUNT (AUTO) 271 K/uL (130-400); RED BLOOD CELL COUNT(AUTO) 3.39 MIL/uL (4.00-5.50); RED CELL DISTRIBUTION WIDTH 20.4 % (11.0-15.5); WHITE BLOOD COUNT (AUTO) 8.9 K/uL (4.8-10.8)
[2019-02-18 05:14] LABS: POTASSIUM 5.3 mmol/L (3.5-5.1)
[2019-02-18 05:22] LABS: CREATININE 11.2 mg/dL (0.5-1.5)
[2019-02-18] MEDS: INSULIN R PO SS1 SQ SCH ×4 (06:06→20:44)
[2019-02-18 07:00] VITALS: BP 187/96
[2019-02-18] MEDS: INSULIN NPH 100 UNIT/ML 3ML SQ SCH ×2 (07:30→17:10)
[2019-02-18] MEDS: SUCROFERRIC OXYHYDROXIDE PO SCH ×3 (08:00→16:50)
[2019-02-18] MEDS: FOLIC ACID/VITAMIN B COMP W-C 1 MG CAPSULE PO SCH (08:48)
[2019-02-18] MEDS: GABAPENTIN 300 MG CAPSULE PO SCH ×2 (08:49→20:41)
[2019-02-18] MEDS: CALCIUM ACETATE 667 MG CAPSULE PO SCH ×3 (08:49→17:00)
[2019-02-18] MEDS: DULOXETINE HCL 30 MG CAP PO SCH (08:49)
[2019-02-18] MEDS: PANTOPRAZOLE SODIUM 40 MG TABLET.DR PO SCH (08:50)
[2019-02-18] MEDS: HYDRALAZINE HCL 10 MG TABLET PO SCH ×2 (08:50→20:40)
[2019-02-18] MEDS: INSULIN LISPRO 100 UNIT/ML 3ML SQ SCH ×3 (08:56→17:00)
[2019-02-18] MEDS: CEFTRIAXONE SODIUM 1 GM IVP SCH (09:50)
[2019-02-18 11:00] VITALS: BP 173/102
[2019-02-18 15:35] VITALS: BP 185/95
[2019-02-18] MEDS: CLONIDINE HCL 0.1 MG TABLET PO PRN (17:01)
[2019-02-18 21:02] VITALS: BP 158/93
[2019-02-18] MEDS ORDERED: TRAMADOL HCL 50 MG TABLET PO PRN (22:45)
[2019-02-18] MEDS ORDERED: TRAMADOL HCL 50 MG TABLET ONE (23:38)
[2019-02-19 00:22] VITALS: BP 132/69
--- NOTE | 2019-02-19 00:49 | NUR ---
HYPOGLYCEMIA PATIENT STATES SHE FEELS WEAK-BS CHECK 40-SNACKED PATIENT WITH 240ML OF APPLE JUICE
--- NOTE | 2019-02-19 01:15 | NUR ---
RE CHECK PATIENT STATES SHE STILL FEELS A LITTLE WEAK-SNACKED WITH 240ML OF APPLE JUICE.
--- NOTE | 2019-02-19 02:21 | NUR ---
BS RECHECK BS 57-SNACKED WITH ONE PACKAGE OF CHRISTIE CRACKERS, ONE CONTAINER OF PEANUT BUTTER GIVEN TO PATIENT. STATES FEELS A LOT BETTER
--- NOTE | 2019-02-19 03:20 | NUR ---
BS RECHECK BS decreased to 52-25ml D50w given. will recheck BS
[2019-02-19] MEDS: DEXTROSE 50%-WATER 50 ML DISP.SYRIN IV PRN (03:33)
--- NOTE | 2019-02-19 03:55 | NUR ---
BS recheck BS 105. Patient resting quietly-significant other at bedside
[2019-02-19 04:02] VITALS: BP 126/66
[2019-02-19] MEDS: INSULIN R PO SS1 SQ SCH ×3 (05:38→16:30)
[2019-02-19] MEDS: INSULIN LISPRO 100 UNIT/ML 3ML SQ SCH ×3 (07:30→16:45)
[2019-02-19 08:00] VITALS: BP 140/85
[2019-02-19] MEDS: SUCROFERRIC OXYHYDROXIDE PO SCH ×3 (08:00→16:49)
[2019-02-19] MEDS: DULOXETINE HCL 30 MG CAP PO SCH (09:00)
[2019-02-19] MEDS: CALCIUM ACETATE 667 MG CAPSULE PO SCH ×3 (09:00→16:47)
[2019-02-19] MEDS: GABAPENTIN 300 MG CAPSULE PO SCH (09:01)
[2019-02-19] MEDS: HYDRALAZINE HCL 10 MG TABLET PO SCH (09:01)
[2019-02-19] MEDS: FOLIC ACID/VITAMIN B COMP W-C 1 MG CAPSULE PO SCH (09:01)
[2019-02-19] MEDS: PANTOPRAZOLE SODIUM 40 MG TABLET.DR PO SCH (09:02)
[2019-02-19] MEDS: INSULIN NPH 100 UNIT/ML 3ML SQ SCH ×2 (09:12→16:46)
[2019-02-19] MEDS: ONDANSETRON HCL 4 MG/2 ML VIAL IVP PRN (10:02)
[2019-02-19] MEDS: CEFTRIAXONE SODIUM 1 GM IVP SCH (11:35)
[2019-02-19 12:00] VITALS: BP 160/95
[2019-02-19 16:00] VITALS: BP 173/100
--- NOTE | 2019-02-19 18:50 | NUR ---
DR HAGEN WAS CALLED AND WAS NOTIFIED OF THE DISCHARGE HE SAID NO NEED TO FOLLOW-UP WITH HIM.
--- NOTE | 2019-02-19 19:15 | NUR ---
HYPOGLYCEMIA-WALKED IN TO GIVE DISCHARGE INSTRUCTIONS, PATIENT HAD ALREADY REMOVED TELEMETRY AND IV ACCESS TO RIGHT FOREARM. PATIENT AWAKE, ALERT AND WITH PARENTS AT BEDSIDE BUT, REPORTS SHE FEELS HER BLOOD SUGAR IS LOW, GLUCOMETER CHECK 42MG/DL. NO IV ACCESS-APPLE JUICE WITH SUGAR, CHRISTIE CRACKERS AND PEANUT BUTTER GIVEN. SHE WAS INFORMED BLOOD SUGAR WOULD BE RE-CHECKED BEFORE SHE CAN GO HOME, SHE VOICES UNDERSTANDING.
--- NOTE | 2019-02-19 20:00 | NUR ---
BS rechecked: 78 mg/ dl and discharged Pt. still wants to go home. Verbalized that it is only here that her BS goes down because of the SS that is too high for her. Discharge instructions was again given. Verbalized understanding. Pt. called her boyfriend that she's ready to be picked up. Discharged form signed. Pt. refused to used wheelchair. She said she preferred to walk because she gained weight already. Pt. was accompanied to the [facility] to meet her boyfriend. Pt. discharged to home. No apparent distress / discomfort noted.
== END 2019-02-19 20:00 | disposition home or self-care (01) | DRG 814 ==
LOC: EDH 02:42 → EDHIP 06:57 → 3CH 08:25
PROVIDERS: ADMIT Internal Medicine Nephrology; ATTEND Internal Medicine Nephrology
PROC: 5A1D70Z Performance of Urinary Filtration, Intermittent, Less than 6 Hours Per Day (ICD-10-PCS; principal; 2019-02-11)
PROC: 5A1D70Z Performance of Urinary Filtration, Intermittent, Less than 6 Hours Per Day (ICD-10-PCS; 2019-02-13)
PROC: 5A1D70Z Performance of Urinary Filtration, Intermittent, Less than 6 Hours Per Day (ICD-10-PCS; 2019-02-15)
PROC: 5A1D70Z Performance of Urinary Filtration, Intermittent, Less than 6 Hours Per Day (ICD-10-PCS; 2019-02-18)
DX: D73.5 Infarction of spleen (principal); N18.6 End stage renal disease; I12.0 Hypertensive chronic kidney disease with stage 5 chronic kidney disease or end stage renal disease; N39.0 Urinary tract infection, site not specified; D64.9 Anemia, unspecified; E10.21 Type 1 diabetes mellitus with diabetic nephropathy; E10.22 Type 1 diabetes mellitus with diabetic chronic kidney disease; E87.70 Fluid overload, unspecified; E10.65 Type 1 diabetes mellitus with hyperglycemia; E10.51 Type 1 diabetes mellitus with diabetic peripheral angiopathy without gangrene; E78.5 Hyperlipidemia, unspecified; F41.9 Anxiety disorder, unspecified; Z79.4 Long term (current) use of insulin; Z99.2 Dependence on renal dialysis; Z91.19 Patient's noncompliance with other medical treatment and regimen; Z91.14 Patient's other noncompliance with medication regimen; Z91.11 Patient's noncompliance with dietary regimen; Z83.3 Family history of diabetes mellitus; Z82.5 Family history of asthma and other chronic lower respiratory diseases; Z82.49 Family history of ischemic heart disease and other diseases of the circulatory system; Z82.41 Family history of sudden cardiac death; Z82.3 Family history of stroke; Z82.0 Family history of epilepsy and other diseases of the nervous system
CPT/HCPCS: 36415; 71046; 71275; 74176; 74177; 80048; 80053; 80074; 81001; 81025; 82010; 82947; 82948; 83036; 83735; 84100; 84443; 85025; 85027; 87040; 87088; 87804; 90935; C9113; G0378; J0696; J1170; J1644; J1815; J2270; J2405; J7030; J7070; Q9967

== ENCOUNTER 2019-04-21 00:13 | Emergency (ER) | payer MEDICARE ==
[~2019-04-21 00:13] MED LIST changes: -ALPR0.5T8 PO; -ATROVASTATIN PO; +GABA-531 PO; +HYDR-3420 PO; -INSU100V SQ; -LEVO250T59 PO; -LOSA50TA2 PO; -METF500S7 PO; +SUCR500T PO
[2019-04-21] MEDS ORDERED: TETANUS/DIPHTHERIA TOXOID [ADULT] 0.5 ML VIAL IM ONE (00:42)
[2019-04-21] MEDS ORDERED: CEPHALEXIN 500 MG CAPSULE ONE (01:50)
== END 2019-04-21 02:05 | disposition home or self-care (01) ==
LOC: EDH 00:13
DX: S91.114A Laceration without foreign body of right lesser toe(s) without damage to nail, initial encounter (principal); E11.9 Type 2 diabetes mellitus without complications; I10 Essential (primary) hypertension; F41.9 Anxiety disorder, unspecified; F32.9 Major depressive disorder, single episode, unspecified; Z90.49 Acquired absence of other specified parts of digestive tract; Z98.890 Other specified postprocedural states; W26.8XXA Contact with other sharp object(s), not elsewhere classified, initial encounter; Y93.02 Activity, running; Y92.098 Other place in other non-institutional residence as the place of occurrence of the external cause; Y99.8 Other external cause status
CPT/HCPCS: 12042; 73620; 90471; 90714

== ENCOUNTER 2019-05-05 08:38 | Emergency (ER) | payer MEDICARE ==
[2019-05-05] MEDS ORDERED: CEPHALEXIN 500 MG CAPSULE ONE (09:51)
== END 2019-05-05 10:02 | disposition home or self-care (01) ==
LOC: EDH 08:38
DX: S91.311A Laceration without foreign body, right foot, initial encounter (principal); L08.9 Local infection of the skin and subcutaneous tissue, unspecified; I12.9 Hypertensive chronic kidney disease with stage 1 through stage 4 chronic kidney disease, or unspecified chronic kidney disease; N18.9 Chronic kidney disease, unspecified; E11.9 Type 2 diabetes mellitus without complications; F32.9 Major depressive disorder, single episode, unspecified; F41.9 Anxiety disorder, unspecified; Z99.2 Dependence on renal dialysis; X58.XXXA Exposure to other specified factors, initial encounter; Y93.89 Activity, other specified; Y92.89 Other specified places as the place of occurrence of the external cause; Y99.8 Other external cause status

== ENCOUNTER 2019-07-01 07:52 | Inpatient (IN) | payer MEDICARE ==
[2019-07-01] VITALS (17 sets, daily range): BP systolic 123–184; BP diastolic 67–99
[~2019-07-01] VITALS: Ht 152.4 cm; Wt 69.4 kg
[2019-07-01 08:56] LABS: BASOPHILS % (AUTO) 0.5 % (0.0-5.0); EOSINOPHILS % (AUTO) 0.7 % (0.0-8.0); HEMATOCRIT 34.6 % (36-48); LYMPHOCYTES % (AUTO) 6.6 % (21.0-51.0); MEAN CORPUSCULAR HEMOGLOBIN 30.8 pg (27.0-33.0); MEAN CORPUSCULAR HGB CONC 31.2 g/dL (32.0-36.0); MEAN CORPUSCULAR VOLUME 98.6 fL (79-99); MONOCYTES % (AUTO) 7.1 % (3.0-13.0); NEUTROPHILS % (AUTO) 85.1 % (40.0-77.0); NUCLEATED RED BLOOD CELLS 0.1 % (0.0-0.19); PLATELET COUNT (AUTO) 262 K/uL (130-400); RED BLOOD CELL COUNT(AUTO) 3.51 MIL/uL (4.00-5.50); RED CELL DISTRIBUTION WIDTH 17.2 % (11.0-15.5); WHITE BLOOD COUNT (AUTO) 13.4 K/uL (4.8-10.8)
[2019-07-01 09:08] LABS: POTASSIUM 4.5 mmol/L (3.5-5.1)
[2019-07-01] MEDS ORDERED: CEFTRIAXONE SODIUM 2 GM VIAL ONE (09:12)
[2019-07-01] MEDS ORDERED: SODIUM CHLORIDE 0.9% 500ML 500 ML IV ONE ×2 (09:13→11:20)
[2019-07-01 09:41] LABS: CREATININE 9.1 mg/dL (0.5-1.5)
[2019-07-01 09:56] LABS: APPEARANCE,URINE CLEAR (CLEAR); BILIRUBIN,URINE NEGATIVE (NEGATIVE); COLOR,URINE YELLOW (YELLOW); GLUCOSE, URINE (UA) >=1000 mg/dL (NEGATIVE); KETONES,URINE NEGATIVE (NEGATIVE); LEUKOCYTE ESTERASE ,URINE NEGATIVE (NEGATIVE); NITRATE,URINE NEGATIVE (NEGATIVE); OCCULT BLOOD,URINE MODERATE (NEGATIVE); PROTEIN,URINE 100 mg/dL (NEGATIVE); UROBILINOGEN,URINE 0.2 mg/dL (0.2-1.0)
[2019-07-01 10:04] LABS: BACTERIA,URINE Moderate /HPF (None Seen); MUCUS,URINE Few LPF (None Seen); TRANSITIONAL EPI CELLS,URINE Moderate /HPF (None Seen); WBC,URINE 0-1 /HPF (0-1)
[2019-07-01 11:13] LABS: ABG BASE EXCESS -7.4 mmol/L (-2.0-3.0); ABG HCO3 18.4 mmol/L (21.0-28.0); ABG OXYGEN SATURATION 95.1 % (95.0-99.0); ABG PCO2 39 mmHg (32-45)
[2019-07-01] MEDS ORDERED: INSULIN HUMULIN R 100 UNIT/ML 3ML ONE ×2 (11:20→13:20)
[2019-07-01] MEDS ORDERED: LACTULOSE 20 GM/30 ML UDCUP PO PRN (12:30)
[2019-07-01] MEDS ORDERED: ACETAMINOPHEN 325 MG TAB PO PRN (12:30)
[2019-07-01] MEDS ORDERED: INSULIN HUMULIN R 100 UNIT/ML 3ML SQ SCH ×2 (13:00→16:30)
[2019-07-01] MEDS ORDERED: CEFTRIAXONE SODIUM 1 GM IVP SCH (13:00)
[2019-07-01] MEDS ORDERED: SODIUM CHLORIDE 0.9% 100 ML IV ONE (13:21)
[2019-07-01 13:37] LABS: BILIRUBIN,TOTAL 0.8 mg/dL (0.2-1.0); POTASSIUM 4.4 mmol/L (3.5-5.1); TOTAL PROTEIN, SERUM 7.2 g/dL (6.0-8.3)
[2019-07-01 13:41] LABS: CREATININE 9.4 mg/dL (0.5-1.5)
[2019-07-01 13:57] LABS: ABG BASE EXCESS -6.8 mmol/L (-2.0-3.0); ABG HCO3 19.4 mmol/L (21.0-28.0); ABG OXYGEN SATURATION 93.9 % (95.0-99.0); ABG PCO2 41 mmHg (32-45)
[2019-07-01] MEDS ORDERED: LABETALOL 20 MG/4 ML DISP.SYRIN IV ONE (14:07)
[2019-07-01] MEDS ORDERED: INSULIN REGULAR, HUMAN 3ML 100 UNIT in SODIUM CHLORIDE 0.9% 99 ML IV PRN ×4 (15:30→16:00)
[2019-07-01] MEDS ORDERED: LABETALOL 20 MG/4 ML DISP.SYRIN IV PRN (16:00)
[2019-07-01] MEDS ORDERED: NICARDIPINE HCL 100 MG in SODIUM CHLORIDE 0.9% 60 ML IV PRN (16:00)
[2019-07-01] MEDS ORDERED: SODIUM CHLORIDE 0.9% 1000ML 1,000 ML IV SCH (16:00)
[2019-07-01] MEDS ORDERED: POTASSIUM CHLORIDE 10% ELIXIR 20 MEQ/15 ML UDCUP PO PRN (16:00)
[2019-07-01] MEDS ORDERED: POTASSIUM CHLORIDE 20MEQ/100ML 100 ML IV PRN (16:00)
[2019-07-01] MEDS ORDERED: LIDOCAINE HCL-MPF 1% 2ML VIAL IV PRN (16:00)
[2019-07-01] MEDS ORDERED: MAGNESIUM 2GM PREMIX 50ML 50 ML IV PRN (16:00)
[2019-07-01] MEDS ORDERED: POTASSIUM CHLORIDE 20 MEQ ERTAB PO PRN (16:00)
[2019-07-01] MEDS ORDERED: HYDROMORPHONE HCL 0.5 MG/0.5 ML ML IVP PRN (16:00)
[2019-07-01] MEDS ORDERED: RENAL DOSE IV PRN (16:00)
[2019-07-01] MEDS: PHARMACY COMMUNICATION MISC SCH ×4 (16:15→22:15)
[2019-07-01] MEDS ORDERED: COMPOUND IV REFRIGERATED 1 EACH IVSOLN MISC PRN (17:15)
[2019-07-01] MEDS ORDERED: VANCOMYCIN PROTOCOL PER PHARMACY IV SCH (17:15)
[2019-07-01] MEDS ORDERED: VANCOMYCIN 1.25 GM in SODIUM CHLORIDE 0.9% 250 ML IV ONE (18:00)
[2019-07-01] MEDS: LABETALOL HCL 5 MG/ML 20ML VIAL IV PRN ×2 (18:21→20:45)
[2019-07-01 18:30] LABS: POTASSIUM 4.1 mmol/L (3.5-5.1)
--- NOTE | 2019-07-01 19:00 | NUR ---
Assumed care at 1900. Patient in no apparent distress. Insulin drip is off at this time. Continuing with Q1hr glucometer checks. Please see physial assessment for further detail. Will continue to monitor.
[2019-07-01] MEDS: ZOSYN 3.375GM+NS 50ML 50 ML IV SCH (20:46)
[2019-07-01] MEDS: HEPARIN SODIUM 5000UNIT/ML 1ML VIAL SQ SCH (20:57)
[2019-07-01] MEDS: HYDROMORPHONE 1 MG/1 ML AMP IVP PRN (20:58)
[2019-07-01] MEDS: FAMOTIDINE 20MG TAB 20 MG TAB PO SCH (21:00)
[2019-07-02] VITALS (34 sets, daily range): BP systolic 124–189; BP diastolic 50–117
--- NOTE | 2019-07-02 00:15 | NUR ---
Dr Hsu rounded on patient. He was updated on patient condition. Dr Hsu ordered insulin drip to be stopped. Insulin sliding scaled #2 ordered Q4hrs. Patient with no complaints of pain at this time. Will continue to monitor.
[2019-07-02 00:34] LABS: POTASSIUM 4.5 mmol/L (3.5-5.1)
[2019-07-02 00:38] LABS: CREATININE 9.4 mg/dL (0.5-1.5)
[2019-07-02] MEDS: HYDROMORPHONE 1 MG/1 ML AMP IVP PRN ×6 (02:46→21:20)
[2019-07-02 03:49] LABS: ABG BASE EXCESS -11.1 mmol/L (-2.0-3.0); ABG HCO3 16.2 mmol/L (21.0-28.0); ABG PCO2 41 mmHg (32-45)
[2019-07-02] MEDS: INSULIN HUMULIN R 100 UNIT/ML 3ML SQ SCH ×3 (04:27→12:00)
[2019-07-02 05:43] LABS: EOSINOPHILS % (AUTO) 1.9 % (0.0-8.0); LYMPHOCYTES % (AUTO) 13.1 % (21.0-51.0); MEAN CORPUSCULAR HEMOGLOBIN 30.6 pg (27.0-33.0); MEAN CORPUSCULAR HGB CONC 32.6 g/dL (32.0-36.0); MEAN CORPUSCULAR VOLUME 93.8 fL (79-99); MONOCYTES % (AUTO) 5.9 % (3.0-13.0); NEUTROPHILS % (AUTO) 78.1 % (40.0-77.0); PLATELET COUNT (AUTO) 249 K/uL (130-400); RED BLOOD CELL COUNT(AUTO) 3.09 MIL/uL (4.00-5.50); RED CELL DISTRIBUTION WIDTH 16.9 % (11.0-15.5); WHITE BLOOD COUNT (AUTO) 13.7 K/uL (4.8-10.8)
[2019-07-02] MEDS: LABETALOL HCL 5 MG/ML 20ML VIAL IV PRN ×3 (05:53→21:44)
[2019-07-02 05:57] LABS: PHOSPHORUS 8.5 mg/dL (2.5-4.9); POTASSIUM 4.6 mmol/L (3.5-5.1)
[2019-07-02] MEDS: ZOSYN 3.375GM+NS 50ML 50 ML IV SCH ×2 (08:42→21:20)
[2019-07-02] MEDS: HEPARIN SODIUM 5000UNIT/ML 1ML VIAL SQ SCH ×2 (08:46→21:00)
[2019-07-02] MEDS ORDERED: CEFTRIAXONE SODIUM 1 GM IV SCH (09:00)
--- NOTE | 2019-07-02 11:18 | NUR ---
DCP:HOME Sw met with pt who lives with her 3 kids 12,10,3. Pt has provider 22hrs a week thru [facility], has dialysis treatments at [facility], MW, 10am, BF transports. No DME or HH. PCP is Dr Beny Stovall. Denies dc needs, plan is home at pa Addendum: 07/02/19 at 1122 by ALISHA JACKSON Amended: Links added.
[2019-07-02] MEDS ORDERED: VANCOMYCIN 1GM+NS 250ML 250 ML IV SCH ×3 (11:45→12:15)
[2019-07-02] MEDS ORDERED: VANCOMYCIN PROTOCOL PER PHARMACY IV PRN (11:45)
[2019-07-02] MEDS ORDERED: EPOETIN ALFA 10,000 UNIT/ML VIAL SQ SCH (12:00)
[2019-07-02] MEDS ORDERED: HEPARIN SODIUM 5000UNIT/ML 1ML VIAL IRRIG PRN (13:45)
[2019-07-02] MEDS ORDERED: HEPARIN SODIUM 5000UNIT/ML 1ML VIAL IJ PRN ×2 (13:45)
[2019-07-02] MEDS ORDERED: SODIUM CHLORIDE 0.9% 1000ML 1,000 ML IV PRN (13:45)
[2019-07-02] MEDS ORDERED: NITROGLYCERIN 0.4 MG SL TAB SL PRN (13:45)
[2019-07-02] MEDS ORDERED: 0.9% SODIUM CHLORIDE 1000 ML IV BAG IV PRN (13:45)
[2019-07-02] MEDS ORDERED: GABA-529 PO (13:57)
[2019-07-02] MEDS ORDERED: AMLO5TAB9 PO (13:57)
[2019-07-02] MEDS ORDERED: METO50TA18 PO (13:57)
[2019-07-02] MEDS ORDERED: VIT-7 PO (13:57)
[2019-07-02] MEDS ORDERED: HYDR-3830 PO (13:57)
[2019-07-02] MEDS ORDERED: SEVE800T7 PO (13:57)
[2019-07-02] MEDS ORDERED: IOHEXOL-350 75 ML VIAL IV ONE (16:05)
[2019-07-02] MEDS ORDERED: IOHEXOL 350 MG/ML 100ML INFUS..BTL IV ONE (16:10)
[2019-07-02] MEDS: INSULIN LISPRO 100 UNIT/ML 3ML SQ SCH ×3 (16:18→21:39)
[2019-07-02 17:38] LABS: CREATININE 6.1 mg/dL (0.5-1.5); POTASSIUM 3.6 mmol/L (3.5-5.1)
[2019-07-02] MEDS: SUCROFERRIC OXYHYDROXIDE 1000 MG PO SCH (17:41)
--- NOTE | 2019-07-02 19:00 | NUR ---
Assumed care at 1900. Patient in no apparent distress. Please see physical assessment for further detail. Will continue to monitor.
[2019-07-02] MEDS ORDERED: INSULIN GLARGINE 100 UNITS/ML 10 ML VIAL SQ SCH (21:00)
[2019-07-02] MEDS: METOPROLOL TARTRATE 25 MG TAB PO SCH (21:19)
[2019-07-02] MEDS: GABAPENTIN 100 MG CAPSULE PO SCH (21:19)
[2019-07-02] MEDS: FAMOTIDINE 20MG TAB 20 MG TAB PO SCH (21:19)
[2019-07-03] VITALS (27 sets, daily range): BP systolic 96–190; BP diastolic 49–112
[2019-07-03] MEDS: HYDROMORPHONE 1 MG/1 ML AMP IVP PRN ×7 (00:19→21:19)
[2019-07-03 04:00] LABS: HEMATOCRIT 27.8 % (36-48); MEAN CORPUSCULAR HEMOGLOBIN 30.6 pg (27.0-33.0); MEAN CORPUSCULAR HGB CONC 32.9 g/dL (32.0-36.0); MEAN CORPUSCULAR VOLUME 93.1 fL (79-99); PLATELET COUNT (AUTO) 250 K/uL (130-400); RED BLOOD CELL COUNT(AUTO) 2.99 MIL/uL (4.00-5.50); RED CELL DISTRIBUTION WIDTH 17.8 % (11.0-15.5); WHITE BLOOD COUNT (AUTO) 11.9 K/uL (4.8-10.8)
[2019-07-03 04:04] LABS: CREATININE 7.5 mg/dL (0.5-1.5); POTASSIUM 4.4 mmol/L (3.5-5.1)
[2019-07-03 04:48] LABS: BAND NEUTROPHILS % (MANUAL) 3 % (0-2); EOSINOPHILS % (MANUAL) 4 % (1-6); LYMPHOCYTES % (MANUAL) 13 % (22-44); MAN.DIFF COMMENT-IMPRESSION MANUAL DIFFERENTIAL; MONOCYTES % (MANUAL) 9 % (2-9); SEGMENTED NEUTROPHILS % 71 % (40-70)
[2019-07-03 04:49] LABS: PLATELET MORPHOLOGY COMMENT ADEQUATE
[2019-07-03] MEDS: INSULIN LISPRO 100 UNIT/ML 3ML SQ SCH ×7 (06:09→20:52)
[2019-07-03] MEDS: SUCROFERRIC OXYHYDROXIDE 1000 MG PO SCH ×3 (08:00→17:00)
[2019-07-03] MEDS ORDERED: DEXTROSE 5 %-0.45 % NACL 1,000 ML IV PRN (08:01)
[2019-07-03 08:12] LABS: HEPATITIS A ANTIBODY IGM Negative (Negative); HEPATITIS B CORE IGM Negative (Negative); HEPATITIS Bs ANTIGEN SCREEN P Negative (Negative)
[2019-07-03] MEDS ORDERED: POTASSIUM CHLORIDE 10MEQ/100ML 100 ML IV PRN (08:15)
[2019-07-03] MEDS: HEPARIN SODIUM 5000UNIT/ML 1ML VIAL SQ SCH ×2 (08:23→21:00)
[2019-07-03] MEDS ORDERED: INSULIN REGULAR, HUMAN 3ML 100 UNIT in SODIUM CHLORIDE 0.9% 99 ML IV PRN ×2 (08:30)
[2019-07-03] MEDS: GABAPENTIN 100 MG CAPSULE PO SCH ×3 (08:42→21:14)
[2019-07-03] MEDS: ZOSYN 3.375GM+NS 50ML 50 ML IV SCH ×2 (08:44→21:14)
[2019-07-03] MEDS: DULOXETINE HCL 30 MG CAP PO SCH (08:44)
[2019-07-03] MEDS: METOPROLOL TARTRATE 25 MG TAB PO SCH (08:44)
[2019-07-03] MEDS: SODIUM CHLORIDE 0.9% 1000ML 1,000 ML IV SCH ×2 (08:44→13:01)
[2019-07-03] MEDS: AMLODIPINE BESYLATE 5 MG TAB PO SCH (08:44)
[2019-07-03] MEDS: INSULIN HUMULIN R 100 UNIT/ML 3ML IV SCH (08:46)
[2019-07-03] MEDS: SEVELAMER HCL 800 MG TABLET PO SCH ×3 (08:50→17:01)
[2019-07-03] MEDS: [UNRECOGNIZED DRUG - OTHER] PO SCH (08:50)
[2019-07-03] MEDS: VIT B CMPLX PO SCH (08:50)
[2019-07-03] MEDS: BIOTIN PO SCH (08:50)
[2019-07-03 09:11] LABS: ABG BASE EXCESS -3.1 mmol/L (-2.0-3.0); ABG HCO3 23.2 mmol/L (21.0-28.0); ABG OXYGEN SATURATION 97.5 % (95.0-99.0); ABG PCO2 46 mmHg (32-45)
[2019-07-03 12:36] LABS: POTASSIUM 4.5 mmol/L (3.5-5.1)
[2019-07-03 12:43] LABS: CREATININE 8.2 mg/dL (0.5-1.5)
[2019-07-03 18:20] LABS: POTASSIUM 4.4 mmol/L (3.5-5.1)
[2019-07-03 18:25] LABS: CREATININE 8.6 mg/dL (0.5-1.5)
[2019-07-03] MEDS: INSULIN GLARGINE 100 UNITS/ML 10 ML VIAL SQ SCH (21:00)
[2019-07-03] MEDS: FAMOTIDINE 20MG TAB 20 MG TAB PO SCH (21:14)
[2019-07-03] MEDS: METOPROLOL TARTRATE 50 MG TAB PO SCH (21:15)
[2019-07-04] VITALS (15 sets, daily range): BP systolic 124–198; BP diastolic 61–109
[2019-07-04 03:45] LABS: MEAN CORPUSCULAR HEMOGLOBIN 30.9 pg (27.0-33.0); MEAN CORPUSCULAR VOLUME 93.6 fL (79-99); NUCLEATED RED BLOOD CELLS 0.1 % (0.0-0.19); PLATELET COUNT (AUTO) 277 K/uL (130-400); WHITE BLOOD COUNT (AUTO) 9.7 K/uL (4.8-10.8)
[2019-07-04 03:49] LABS: BASOPHILS % (AUTO) 0.5 % (0.0-5.0); EOSINOPHILS % (AUTO) 5.1 % (0.0-8.0); LYMPHOCYTES % (AUTO) 14.4 % (21.0-51.0); MONOCYTES % (AUTO) 7.9 % (3.0-13.0); NEUTROPHILS % (AUTO) 72.1 % (40.0-77.0)
[2019-07-04 03:56] LABS: PHOSPHORUS 8.1 mg/dL (2.5-4.9)
[2019-07-04 04:01] LABS: CREATININE 9.2 mg/dL (0.5-1.5); POTASSIUM 6.3 mmol/L (3.5-5.1)
[2019-07-04] MEDS: HYDROMORPHONE 1 MG/1 ML AMP IVP PRN ×6 (04:30→22:11)
[2019-07-04] MEDS: LABETALOL HCL 5 MG/ML 20ML VIAL IV PRN ×2 (04:43→17:32)
[2019-07-04] MEDS: SEVELAMER HCL 800 MG TABLET PO SCH ×3 (06:56→16:07)
[2019-07-04] MEDS: INSULIN LISPRO 100 UNIT/ML 3ML SQ SCH ×7 (06:56→21:00)
[2019-07-04] MEDS: VIT B CMPLX PO SCH (07:57)
[2019-07-04] MEDS: SUCROFERRIC OXYHYDROXIDE 1000 MG PO SCH ×3 (07:57→16:07)
[2019-07-04] MEDS: [UNRECOGNIZED DRUG - OTHER] PO SCH (07:57)
[2019-07-04] MEDS: BIOTIN PO SCH (07:57)
[2019-07-04] MEDS: DULOXETINE HCL 30 MG CAP PO SCH (07:59)
[2019-07-04] MEDS: ZOSYN 3.375GM+NS 50ML 50 ML IV SCH ×2 (08:00→21:00)
[2019-07-04] MEDS: METOPROLOL TARTRATE 50 MG TAB PO SCH ×2 (08:01→21:58)
[2019-07-04] MEDS: GABAPENTIN 100 MG CAPSULE PO SCH ×3 (08:08→21:58)
[2019-07-04] MEDS: HEPARIN SODIUM 5000UNIT/ML 1ML VIAL SQ SCH ×2 (08:08→21:00)
[2019-07-04] MEDS: INSULIN HUMULIN R 100 UNIT/ML 3ML IV SCH (08:15)
[2019-07-04] MEDS: ONDANSETRON HCL 4 MG/2 ML VIAL IV PRN (11:28)
--- NOTE | 2019-07-04 12:54 | NUR ---
HELD DOSE OF HUMALOG, NOTED HAVING AN EMESIS, DID NOT EAT LUNCH, ADMINISTERED 4 MF OF ZOFRAN IV, DR RAMACHANDRAN NOTIFIED
[2019-07-04] MEDS: AMLODIPINE BESYLATE 5 MG TAB PO SCH (16:07)
[2019-07-04] MEDS ORDERED: VANCOMYCIN 500MG+NS 100ML 100 ML IV SCH (18:00)
--- NOTE | 2019-07-04 19:15 | NUR ---
REPORT GIVEN TO JEFFERY MEDINA, TRANSFERRED TO ROOM 204, PCCU, VIA WHEELCHAIR
[2019-07-04] MEDS: INSULIN GLARGINE 100 UNITS/ML 10 ML VIAL SQ SCH (21:00)
[2019-07-04] MEDS: FAMOTIDINE 20MG TAB 20 MG TAB PO SCH (21:58)
[2019-07-05] VITALS (7 sets, daily range): BP systolic 120–161; BP diastolic 59–88
[2019-07-05] MEDS: ONDANSETRON HCL 4 MG/2 ML VIAL IV PRN (02:31)
[2019-07-05] MEDS: HYDROMORPHONE 1 MG/1 ML AMP IVP PRN ×2 (02:32→06:55)
[2019-07-05 03:27] LABS: CREATININE 6.1 mg/dL (0.5-1.5); POTASSIUM 4.7 mmol/L (3.5-5.1)
[2019-07-05 03:28] LABS: BASOPHILS % (AUTO) 0.6 % (0.0-5.0); EOSINOPHILS % (AUTO) 4.4 % (0.0-8.0); HEMATOCRIT 30.8 % (36-48); LYMPHOCYTES % (AUTO) 16.4 % (21.0-51.0); MEAN CORPUSCULAR HEMOGLOBIN 30.8 pg (27.0-33.0); MEAN CORPUSCULAR HGB CONC 32.6 g/dL (32.0-36.0); MEAN CORPUSCULAR VOLUME 94.5 fL (79-99); MONOCYTES % (AUTO) 9.2 % (3.0-13.0); NEUTROPHILS % (AUTO) 69.4 % (40.0-77.0); PLATELET COUNT (AUTO) 276 K/uL (130-400); RED BLOOD CELL COUNT(AUTO) 3.26 MIL/uL (4.00-5.50); RED CELL DISTRIBUTION WIDTH 17.5 % (11.0-15.5); WHITE BLOOD COUNT (AUTO) 7.7 K/uL (4.8-10.8)
[2019-07-05] MEDS: INSULIN LISPRO 100 UNIT/ML 3ML SQ SCH ×7 (06:54→20:40)
--- NOTE | 2019-07-05 07:45 | NUR ---
ASSESSMENT ENCOUNTERED PT IN HIGH FLORIAN'S POSITION, A&OX3, CALM COOPERATIVE AND DOES NOT APPEAR TO BE IN ANY DISTRESS NOR ANY NEURO DEFICITS PRESENT. PT DENIES DIZZINESS OR LIGHTHEADEDNESS BUT DOES C/O CHRONIC LEFT LEG PAIN AT ABSCESS SITE, DRY AND INTACT BUT TENDER TO TOUCH WITH NO OOZING OR DISCHARGE PRESENT. PERMACATH TO [facility], SITE DRY AND INTACT, LEFT TMA PRESENT, SITE DRY AND INTACT, PT IS AMBULATORY, GAIT SLOW BUT STEADY WITH STAND BY ASSIST. PT IS ABLE TO TOLERATE FOODS, FLUIDS AND MEDICATION WITH NO THROAT CLEARING OR COUGH. CALL LIGHT WITHIN REACH.
[2019-07-05] MEDS: SUCROFERRIC OXYHYDROXIDE 1000 MG PO SCH ×3 (08:00→17:00)
[2019-07-05] MEDS: INSULIN HUMULIN R 100 UNIT/ML 3ML IV SCH (08:15)
[2019-07-05] MEDS ORDERED: HYDROCODONE/ACETAMINOPHEN 5/325 MG TAB PO PRN (08:45)
[2019-07-05] MEDS: VIT B CMPLX PO SCH (09:00)
[2019-07-05] MEDS: [UNRECOGNIZED DRUG - OTHER] PO SCH (09:00)
[2019-07-05] MEDS: HEPARIN SODIUM 5000UNIT/ML 1ML VIAL SQ SCH ×3 (09:00→21:00)
[2019-07-05] MEDS: BIOTIN PO SCH (09:00)
[2019-07-05] MEDS: METOPROLOL TARTRATE 50 MG TAB PO SCH ×2 (09:34→20:45)
[2019-07-05] MEDS: DULOXETINE HCL 30 MG CAP PO SCH (09:34)
[2019-07-05] MEDS: GABAPENTIN 100 MG CAPSULE PO SCH ×3 (09:34→20:46)
[2019-07-05] MEDS: AMLODIPINE BESYLATE 5 MG TAB PO SCH (09:34)
[2019-07-05] MEDS: ZOSYN 3.375GM+NS 50ML 50 ML IV SCH ×2 (09:35→20:38)
[2019-07-05] MEDS: SEVELAMER HCL 800 MG TABLET PO SCH ×3 (09:35→16:31)
--- NOTE | 2019-07-05 10:15 | NUR ---
DR CASTRO AT BEDSIDE UPDATE GIVEN, ORDERS RECEIVED, WOUND CULTURE COLLECTED BY DR CASTRO AND SENT TO LAB, TOLERATED WELL, CALL LIGHT WITHIN REACH.
[2019-07-05] MEDS: KETOROLAC TROMETHAMINE 30MG/ML IV SCH ×2 (11:47→17:30)
--- NOTE | 2019-07-05 15:00 | NUR ---
DIAPHORETIC PT C/O DIAPHORESIS, DECREASED FINGER STICK BLOOD GLUCOSE, 1/2 AMP OF D50 GIVEN, SEE MAR, TOLERATED WELL, CALL LIGHT WITHIN REACH.
[2019-07-05] MEDS ORDERED: DEXTROSE 50%-WATER 50 ML DISP.SYRIN IV ONE (15:03)
--- NOTE | 2019-07-05 17:50 | NUR ---
TRANSFER TO 4TH FLOOR VIA WHEELCHAIR, REPORT CALLED TO TIANA GIL.
[2019-07-05] MEDS: INSULIN GLARGINE 100 UNITS/ML 10 ML VIAL SQ SCH (20:41)
[2019-07-05] MEDS: FAMOTIDINE 20MG TAB 20 MG TAB PO SCH (20:45)
[2019-07-05] MEDS: HYDROXYZINE HCL 10 MG TABLET PO PRN (20:59)
[2019-07-06] MEDS: KETOROLAC TROMETHAMINE 30MG/ML IV SCH ×5 (00:12→22:30)
[2019-07-06 03:35] VITALS: BP 169/80
[2019-07-06] MEDS: LABETALOL HCL 5 MG/ML 20ML VIAL IV PRN (04:55)
[2019-07-06 05:13] LABS: BASOPHILS % (AUTO) 0.6 % (0.0-5.0); EOSINOPHILS % (AUTO) 2.1 % (0.0-8.0); HEMATOCRIT 31.2 % (36-48); LYMPHOCYTES % (AUTO) 17.1 % (21.0-51.0); MEAN CORPUSCULAR HEMOGLOBIN 30.4 pg (27.0-33.0); MEAN CORPUSCULAR HGB CONC 32.5 g/dL (32.0-36.0); MEAN CORPUSCULAR VOLUME 93.5 fL (79-99); MONOCYTES % (AUTO) 11.6 % (3.0-13.0); NEUTROPHILS % (AUTO) 68.6 % (40.0-77.0); NUCLEATED RED BLOOD CELLS 0.1 % (0.0-0.19); PLATELET COUNT (AUTO) 267 K/uL (130-400); RED BLOOD CELL COUNT(AUTO) 3.33 MIL/uL (4.00-5.50); RED CELL DISTRIBUTION WIDTH 17.6 % (11.0-15.5); WHITE BLOOD COUNT (AUTO) 7.8 K/uL (4.8-10.8)
[2019-07-06 05:28] LABS: POTASSIUM 5.8 mmol/L (3.5-5.1)
[2019-07-06 05:45] LABS: CREATININE 8.6 mg/dL (0.5-1.5)
[2019-07-06] MEDS: SEVELAMER HCL 800 MG TABLET PO SCH ×3 (06:39→17:00)
[2019-07-06] MEDS: INSULIN LISPRO 100 UNIT/ML 3ML SQ SCH ×7 (06:41→21:16)
[2019-07-06 07:30] VITALS: BP 151/83
[2019-07-06] MEDS: SUCROFERRIC OXYHYDROXIDE 1000 MG PO SCH ×3 (08:00→17:00)
[2019-07-06] MEDS: INSULIN HUMULIN R 100 UNIT/ML 3ML IV SCH (08:15)
[2019-07-06] MEDS: [UNRECOGNIZED DRUG - OTHER] PO SCH (09:00)
[2019-07-06] MEDS: VIT B CMPLX PO SCH (09:00)
[2019-07-06] MEDS: BIOTIN PO SCH (09:00)
[2019-07-06] MEDS: HEPARIN SODIUM 5000UNIT/ML 1ML VIAL SQ SCH ×2 (09:00→20:06)
[2019-07-06] MEDS: DULOXETINE HCL 30 MG CAP PO SCH (09:13)
[2019-07-06] MEDS: METOPROLOL TARTRATE 50 MG TAB PO SCH ×2 (09:13→21:13)
[2019-07-06] MEDS: ZOSYN 3.375GM+NS 50ML 50 ML IV SCH ×2 (09:13→21:16)
[2019-07-06] MEDS: AMLODIPINE BESYLATE 5 MG TAB PO SCH (09:13)
[2019-07-06] MEDS: GABAPENTIN 100 MG CAPSULE PO SCH ×3 (09:13→21:14)
[2019-07-06 11:20] VITALS: BP 121/73
[2019-07-06] MEDS ORDERED: HYDROCODONE/ACETAMINOPHEN 5/325 MG TAB PO SCH (12:45)
--- NOTE | 2019-07-06 16:05 | NUR ---
LOW BLOOD SUGAR PATIENT FINGERSTICK BLOOD GLUCOSE CHECK REPORTED 42. CHARGE NURSE JEFFERY Hunt INFORMED ME SHE ASSESSED PATIENT AND PATIENT WAS AWAKE, ALERT AND ORIENTED BUT DID REPORT "FEELING SWEATY". PATIENT GIVEN 2 ORANGE JUICES AND CRACKERS. WILL CONTINUE TO MONITOR.
[2019-07-06 16:14] VITALS: BP 137/80
--- NOTE | 2019-07-06 16:30 | NUR ---
PATIENT REPORT PATIENT IS EATING DINNER TRAY AND REPORTS "FEELING A LITTLE BETTER". DID NOT ADMINISTER ANY SCHEDULED INSULIN.
--- NOTE | 2019-07-06 17:00 | NUR ---
BLOOD SUGAR RECHECK BLOOD SUGAR RECHECK 89. PATIENT REPORTS FEELING BETTER.
[2019-07-06 19:17] VITALS: BP 152/89
[2019-07-06] MEDS: FAMOTIDINE 20MG TAB 20 MG TAB PO SCH (21:14)
[2019-07-06] MEDS: HYDROXYZINE HCL 10 MG TABLET PO PRN (21:14)
[2019-07-06] MEDS: HYDROCODONE/ACETAMINOPHEN 5/325 MG TAB PO PRN (21:14)
[2019-07-06] MEDS: INSULIN GLARGINE 100 UNITS/ML 10 ML VIAL SQ SCH (21:15)
[2019-07-06 23:33] VITALS: BP 138/79
[2019-07-07] VITALS (23 sets, daily range): BP systolic 130–168; BP diastolic 68–98
[2019-07-07] MEDS ORDERED: DEXTROSE 50%-WATER 50 ML DISP.SYRIN IV ONE (05:21)
[2019-07-07 05:53] LABS: BASOPHILS % (AUTO) 0.5 % (0.0-5.0); EOSINOPHILS % (AUTO) 4.6 % (0.0-8.0); HEMATOCRIT 32.2 % (36-48); LYMPHOCYTES % (AUTO) 22.5 % (21.0-51.0); MEAN CORPUSCULAR HEMOGLOBIN 30.1 pg (27.0-33.0); MEAN CORPUSCULAR HGB CONC 32.2 g/dL (32.0-36.0); MEAN CORPUSCULAR VOLUME 93.5 fL (79-99); NEUTROPHILS % (AUTO) 60.4 % (40.0-77.0); PLATELET COUNT (AUTO) 266 K/uL (130-400); RED BLOOD CELL COUNT(AUTO) 3.44 MIL/uL (4.00-5.50); RED CELL DISTRIBUTION WIDTH 17.4 % (11.0-15.5); WHITE BLOOD COUNT (AUTO) 8.8 K/uL (4.8-10.8)
[2019-07-07 06:04] LABS: POTASSIUM 5.5 mmol/L (3.5-5.1)
[2019-07-07] MEDS: METOPROLOL TARTRATE 50 MG TAB PO SCH ×2 (06:51→20:52)
[2019-07-07] MEDS: HYDROCODONE/ACETAMINOPHEN 5/325 MG TAB PO PRN ×2 (06:52→12:25)
[2019-07-07] MEDS: INSULIN LISPRO 100 UNIT/ML 3ML SQ SCH ×7 (06:53→20:53)
[2019-07-07] MEDS: SEVELAMER HCL 800 MG TABLET PO SCH ×3 (07:30→17:00)
[2019-07-07] MEDS: SUCROFERRIC OXYHYDROXIDE 1000 MG PO SCH ×3 (08:00→17:00)
[2019-07-07] MEDS: INSULIN HUMULIN R 100 UNIT/ML 3ML IV SCH (08:15)
[2019-07-07] MEDS: GABAPENTIN 100 MG CAPSULE PO SCH ×3 (09:00→20:52)
[2019-07-07] MEDS: DULOXETINE HCL 30 MG CAP PO SCH (09:00)
[2019-07-07] MEDS: HEPARIN SODIUM 5000UNIT/ML 1ML VIAL SQ SCH ×2 (09:00→20:53)
[2019-07-07] MEDS: VIT B CMPLX PO SCH (09:00)
[2019-07-07] MEDS: AMLODIPINE BESYLATE 5 MG TAB PO SCH (09:00)
[2019-07-07] MEDS: BIOTIN PO SCH (09:00)
[2019-07-07] MEDS: ZOSYN 3.375GM+NS 50ML 50 ML IV SCH ×3 (09:00→20:46)
[2019-07-07] MEDS: [UNRECOGNIZED DRUG - OTHER] PO SCH (09:00)
--- NOTE | 2019-07-07 13:12 | NUR ---
PLAN OF CARE DISCUSSED WITH METAL ROOM DENTAL TECHNICIAN, MAY HAVE DSG CHANGES POST DISCHARGE- WILL FOLLOW UP WITH THIS PT THIS AFTERNOON POST PROCEDURE. Addendum: 07/07/19 at 1313 by RAUL ALVARADO RN CM Amended: Links added.
[2019-07-07] MEDS ORDERED: LIDOCAINE PF 2% 5ML ABBOJECT ONE (13:39)
[2019-07-07] MEDS: LABETALOL HCL 5 MG/ML 20ML VIAL IV PRN (13:39)
[2019-07-07] MEDS ORDERED: SUCCINYLCHOLINE 200MG/10ML SYR ONE (13:39)
[2019-07-07] MEDS ORDERED: DEXAMETHASONE SOD PHOSPHATE 10MG/ML 1ML VIAL ONE (13:39)
[2019-07-07] MEDS ORDERED: ONDANSETRON HCL 4 MG/2 ML VIAL ONE (13:40)
[2019-07-07] MEDS ORDERED: MIDAZOLAM HCL 1 MG/ML 2ML VIAL ONE (13:40)
[2019-07-07] MEDS ORDERED: PROPOFOL 10 MG/ML 20ML VIAL IV ONE (13:41)
[2019-07-07] MEDS ORDERED: GLYCOPYRROLATE 1 MG/5 ML SYRINGE ONE (13:41)
[2019-07-07] MEDS ORDERED: ROCURONIUM 10MG/1ML SYR 10 MG/ML ML ONE (13:41)
[2019-07-07] MEDS ORDERED: FENTANYL CITRATE PF 50 MCG/1 ML 2ML VIAL ONE (13:41)
[2019-07-07] MEDS ORDERED: NEOSTIGMINE 5MG/5ML SYR IV ONE (13:41)
[2019-07-07 14:40] LABS: CREATININE 5.1 mg/dL (0.5-1.5); POTASSIUM 3.8 mmol/L (3.5-5.1)
[2019-07-07] MEDS ORDERED: LABETALOL 20 MG/4 ML DISP.SYRIN IV ONE (16:10)
[2019-07-07] MEDS: INSULIN GLARGINE 100 UNITS/ML 10 ML VIAL SQ SCH (20:52)
[2019-07-07] MEDS: FAMOTIDINE 20MG TAB 20 MG TAB PO SCH (20:52)
[2019-07-08] MEDS: HYDROCODONE/ACETAMINOPHEN 5/325 MG TAB PO PRN ×2 (00:04→10:06)
[2019-07-08 00:24] VITALS: BP 166/84
--- NOTE | 2019-07-08 03:10 | NUR ---
NOTE RECEIVED REPORT FROM ASHLEIGH MICHELLE RN. TAKING OVER CARE. PATIENT APPEARS TO SLEEP. NO DISTRESS NOTED.
--- NOTE | 2019-07-08 03:38 | NUR ---
NOTE PATIENT'S DRESSING ON LEFT THIGH SATURATED. WANTS TO USE BEDPAN FIRST BEFORE CHANGING DRESSING.
--- NOTE | 2019-07-08 04:12 | NUR ---
NOTE DRESSING ON LEFT THIGH SATURATED WITH DRAINAGE. DRESSING CHANGED. INCISIONS X3 WITH PACKING GAUZE INTACT ON LATERAL SIDE X2. INCISION ON ANTERIOR/INNER ASPECT OF THIGH DRAINING SEROSANGUINEOUS DRAINAGE. HAS PACKING GAUZE. [address] AND INTACT. DID NOT DISTURB PACKING GAUZE. ONLY CHANGED TOP DRESSING. PLACED STERILE 4X4 GAUZE AND ABD PADS X3. SECURED WITH TRICIA WRAP AND HYPAFIX TAPE.
[2019-07-08 04:20] VITALS: BP 165/89
[2019-07-08 05:36] LABS: BASOPHILS % (AUTO) 0.4 % (0.0-5.0); HEMATOCRIT 31.4 % (36-48); LYMPHOCYTES % (AUTO) 6.7 % (21.0-51.0); MEAN CORPUSCULAR HEMOGLOBIN 30.6 pg (27.0-33.0); MEAN CORPUSCULAR HGB CONC 32.7 g/dL (32.0-36.0); MEAN CORPUSCULAR VOLUME 93.6 fL (79-99); MONOCYTES % (AUTO) 1.7 % (3.0-13.0); NEUTROPHILS % (AUTO) 91.2 % (40.0-77.0); PLATELET COUNT (AUTO) 284 K/uL (130-400); RED BLOOD CELL COUNT(AUTO) 3.36 MIL/uL (4.00-5.50); RED CELL DISTRIBUTION WIDTH 17.2 % (11.0-15.5); WHITE BLOOD COUNT (AUTO) 6.1 K/uL (4.8-10.8)
[2019-07-08 05:51] LABS: CREATININE 6.9 mg/dL (0.5-1.5)
[2019-07-08 06:00] LABS: POTASSIUM 6.2 mmol/L (3.5-5.1)
[2019-07-08] MEDS: INSULIN LISPRO 100 UNIT/ML 3ML SQ SCH ×7 (07:13→20:28)
[2019-07-08] MEDS: SEVELAMER HCL 800 MG TABLET PO SCH ×3 (07:30→17:00)
[2019-07-08 07:49] VITALS: BP 183/98
[2019-07-08] MEDS: SUCROFERRIC OXYHYDROXIDE 1000 MG PO SCH ×3 (08:00→17:00)
[2019-07-08] MEDS: INSULIN HUMULIN R 100 UNIT/ML 3ML IV SCH (08:15)
[2019-07-08] MEDS: VIT B CMPLX PO SCH (09:00)
[2019-07-08] MEDS: [UNRECOGNIZED DRUG - OTHER] PO SCH (09:00)
[2019-07-08] MEDS: BIOTIN PO SCH (09:00)
[2019-07-08] MEDS: DULOXETINE HCL 30 MG CAP PO SCH (10:05)
[2019-07-08] MEDS: AMLODIPINE BESYLATE 5 MG TAB PO SCH (10:05)
[2019-07-08] MEDS: METOPROLOL TARTRATE 50 MG TAB PO SCH ×2 (10:05→20:21)
[2019-07-08] MEDS: ZOSYN 3.375GM+NS 50ML 50 ML IV SCH ×2 (10:06→20:21)
[2019-07-08] MEDS: GABAPENTIN 100 MG CAPSULE PO SCH ×3 (10:06→20:21)
[2019-07-08] MEDS: HEPARIN SODIUM 5000UNIT/ML 1ML VIAL SQ SCH ×2 (10:08→20:28)
[2019-07-08] MEDS ORDERED: SODIUM POLYSTYRENE SULFONATE 15 GM/60 ML ML PO SCH ×2 (11:00→17:15)
[2019-07-08] MEDS ORDERED: CALCIUM CHLORIDE 100 MG/ML 10 ML SYG IVP SCH (11:00)
[2019-07-08 11:26] VITALS: BP 172/85
--- NOTE | 2019-07-08 15:58 | NUR ---
RD NOTIFICATION DX: SEPSIS, CELLULITIS, ESRD ON HD. HX: DM, HTN, ESRD ON HD. DIET: RENAL DIALYSIS, 75GM CCD. PO INTAKE 100% AND HAS GREAT APPETITE PER PT. LBM: 07/04. PT SEES A DIETITIAN AT THE DIALYSIS CLINIC. PT REFUSED DIET AND NUTRITION EDUCATION, HOWEVER MATERIALS PROVIDED. RD RECOMMENDS CONTINUE CURRENT DIET. RECOMMEND STOOL SOFTENER. RD PROVIDED DIET AND NUTRITION EDUCATION MATERIALS. RD WILL CONTINUE TO MONITOR AND FOLLOW UP NEEDED. Addendum: 07/08/19 at [address] RD Amended: Links added.
--- NOTE | 2019-07-08 15:59 | NUR ---
DIET EDUCATION PT SEES A DIETITIAN AT THE DIALYSIS CLINIC. PT REFUSED DIET AND NUTRITION EDUCATION, HOWEVER MATERIALS PROVIDED. Addendum: 07/08/19 at [address] Amended: Links added.
--- NOTE | 2019-07-08 16:00 | NUR ---
ORDER FOR DSG CHANGES DAILY- HH SETUP NOTED ORDER FOR DAILY DSG CHANGES PER AUBREY/ MARTHA- HH NEEDED, REFERRED TO [facility] AFTER CALLING TO CHECK WHETHER THEY WORK WELL W DR. MARTHA CARBAJAL OBTAINED, PKT FAXED. PRIMARY RN AWARE, CHART TAGGED
[2019-07-08 16:08] VITALS: BP 135/80
[2019-07-08 20:15] VITALS: BP 137/76
[2019-07-08] MEDS: FAMOTIDINE 20MG TAB 20 MG TAB PO SCH (20:21)
[2019-07-08] MEDS ORDERED: INSULIN GLARGINE 100 UNITS/ML 10 ML VIAL SQ SCH (21:00)
[2019-07-09 00:20] VITALS: BP 135/78
[2019-07-09 04:20] VITALS: BP 135/78
[2019-07-09 04:32] LABS: BASOPHILS % (AUTO) 0.6 % (0.0-5.0); EOSINOPHILS % (AUTO) 2.9 % (0.0-8.0); HEMATOCRIT 26.5 % (36-48); LYMPHOCYTES % (AUTO) 26.7 % (21.0-51.0); MEAN CORPUSCULAR HEMOGLOBIN 30.3 pg (27.0-33.0); MEAN CORPUSCULAR HGB CONC 33.1 g/dL (32.0-36.0); MEAN CORPUSCULAR VOLUME 91.6 fL (79-99); MONOCYTES % (AUTO) 11.3 % (3.0-13.0); NEUTROPHILS % (AUTO) 58.5 % (40.0-77.0); PLATELET COUNT (AUTO) 297 K/uL (130-400); RED BLOOD CELL COUNT(AUTO) 2.89 MIL/uL (4.00-5.50); RED CELL DISTRIBUTION WIDTH 17.5 % (11.0-15.5)
[2019-07-09 04:49] LABS: POTASSIUM 5.2 mmol/L (3.5-5.1)
[2019-07-09 05:09] LABS: CREATININE 8.7 mg/dL (0.5-1.5)
[2019-07-09] MEDS: INSULIN LISPRO 100 UNIT/ML 3ML SQ SCH ×6 (05:21→17:05)
[2019-07-09] MEDS: SEVELAMER HCL 800 MG TABLET PO SCH ×3 (07:30→17:00)
[2019-07-09 07:55] VITALS: BP 161/89
[2019-07-09] MEDS: SUCROFERRIC OXYHYDROXIDE 1000 MG PO SCH ×3 (08:00→17:00)
[2019-07-09] MEDS: INSULIN HUMULIN R 100 UNIT/ML 3ML IV SCH (08:15)
[2019-07-09] MEDS: METOPROLOL TARTRATE 50 MG TAB PO SCH (09:00)
[2019-07-09] MEDS: BIOTIN PO SCH (09:00)
[2019-07-09] MEDS: GABAPENTIN 100 MG CAPSULE PO SCH ×2 (09:00→13:39)
[2019-07-09] MEDS: HEPARIN SODIUM 5000UNIT/ML 1ML VIAL SQ SCH (09:00)
[2019-07-09] MEDS: [UNRECOGNIZED DRUG - OTHER] PO SCH (09:00)
[2019-07-09] MEDS: VIT B CMPLX PO SCH (09:00)
[2019-07-09 11:05] VITALS: BP 141/83
[2019-07-09] MEDS: AMLODIPINE BESYLATE 5 MG TAB PO SCH (13:38)
[2019-07-09] MEDS: DULOXETINE HCL 30 MG CAP PO SCH (13:39)
[2019-07-09] MEDS ORDERED: VANCOMYCIN 1GM+NS 250ML 250 ML IV NR (15:00)
[2019-07-09 16:00] VITALS: BP 174/98
== END 2019-07-09 18:59 | disposition home or self-care (01) | DRG 252 ==
LOC: EDH 07:52 → EDHIP 12:30 → 2CH 15:19 → 2AH 07-04 19:26 → 4AH 07-05 18:10
PROVIDERS: ADMIT Family Medicine; ATTEND Family Medicine
PROC: 5A1D70Z Performance of Urinary Filtration, Intermittent, Less than 6 Hours Per Day (ICD-10-PCS; 2019-07-02)
PROC: 5A1D70Z Performance of Urinary Filtration, Intermittent, Less than 6 Hours Per Day (ICD-10-PCS; 2019-07-04)
PROC: 5A1D70Z Performance of Urinary Filtration, Intermittent, Less than 6 Hours Per Day (ICD-10-PCS; 2019-07-07)
PROC: 04PY0JZ Removal of Synthetic Substitute from Lower Artery, Open Approach (ICD-10-PCS; 2019-07-07)
PROC: 06PY0JZ Removal of Synthetic Substitute from Lower Vein, Open Approach (ICD-10-PCS; 2019-07-07)
PROC: 0Y9D0ZZ Drainage of Left Upper Leg, Open Approach (ICD-10-PCS; principal; 2019-07-07 15:00)
PROC: 5A1D70Z Performance of Urinary Filtration, Intermittent, Less than 6 Hours Per Day (ICD-10-PCS; 2019-07-09)
DX: T82.7XXA Infection and inflammatory reaction due to other cardiac and vascular devices, implants and grafts, initial encounter (principal); N18.6 End stage renal disease; E11.00 Type 2 diabetes mellitus with hyperosmolarity without nonketotic hyperglycemic-hyperosmolar coma (NKHHC); E11.10 Type 2 diabetes mellitus with ketoacidosis without coma; A41.9 Sepsis, unspecified organism; R65.20 Severe sepsis without septic shock; L03.116 Cellulitis of left lower limb; L02.91 Cutaneous abscess, unspecified; I12.0 Hypertensive chronic kidney disease with stage 5 chronic kidney disease or end stage renal disease; L02.416 Cutaneous abscess of left lower limb; L97.129 Non-pressure chronic ulcer of left thigh with unspecified severity; Z99.2 Dependence on renal dialysis; E11.22 Type 2 diabetes mellitus with diabetic chronic kidney disease; E11.65 Type 2 diabetes mellitus with hyperglycemia; E11.51 Type 2 diabetes mellitus with diabetic peripheral angiopathy without gangrene; Z88.5 Allergy status to narcotic agent; Z91.19 Patient's noncompliance with other medical treatment and regimen; D63.1 Anemia in chronic kidney disease; E11.21 Type 2 diabetes mellitus with diabetic nephropathy; E66.9 Obesity, unspecified; Z68.29 Body mass index [BMI] 29.0-29.9, adult; E87.5 Hyperkalemia; F32.9 Major depressive disorder, single episode, unspecified; F41.9 Anxiety disorder, unspecified; Z79.4 Long term (current) use of insulin; Z82.0 Family history of epilepsy and other diseases of the nervous system; Z82.3 Family history of stroke; Z82.41 Family history of sudden cardiac death; Z82.49 Family history of ischemic heart disease and other diseases of the circulatory system; Z82.5 Family history of asthma and other chronic lower respiratory diseases; Z83.3 Family history of diabetes mellitus; Y65.8 Other specified misadventures during surgical and medical care; Y92.89 Other specified places as the place of occurrence of the external cause
CPT/HCPCS: 36415; 36600; 71045; 73702; 76882; 80048; 80053; 80074; 80202; 81001; 82010; 82435; 82803; 82947; 82948; 83605; 83735; 84100; 84132; 84145; 84295; 84703; 85018; 85025; 87040; 87070; 87076; 87077; 87186; 87205; 88300; 90935; 93005; 99291; A6266; G0378; J0330; J0696; J0885; J1100; J1170; J1644; J1815; J1885; J2001; J2250; J2405; J2543; J2704; J2710; J3010; J3370; J3490; J7030; J7040; J7042; J7070; Q9967

== ENCOUNTER 2019-09-24 00:30 | Emergency (ER) | payer MEDICARE ==
[~2019-09-24 00:30] MED LIST changes: +AMLO5TAB9 PO; -CALC667C10 PO; -FOLI1TAB85 PO; +GABA-529 PO; -GABA-531 PO; -HYDR-3420 PO; +HYDR-3830 PO; -METO-391 PO; +METO50TA18 PO; +SEVE800T7 PO; +VIT-7 PO
[2019-09-24] MEDS ORDERED: ACETAMINOPHEN 325 MG TAB ONE (01:15)
== END 2019-09-24 01:26 | disposition home or self-care (01) ==
LOC: EDH 00:30
DX: M79.651 Pain in right thigh (principal); F41.9 Anxiety disorder, unspecified; I12.0 Hypertensive chronic kidney disease with stage 5 chronic kidney disease or end stage renal disease; N18.6 End stage renal disease; F32.9 Major depressive disorder, single episode, unspecified; E11.22 Type 2 diabetes mellitus with diabetic chronic kidney disease; Z90.49 Acquired absence of other specified parts of digestive tract; Z98.890 Other specified postprocedural states; Z99.2 Dependence on renal dialysis; W18.39XA Other fall on same level, initial encounter; Y93.01 Activity, walking, marching and hiking; Y92.89 Other specified places as the place of occurrence of the external cause; Y99.8 Other external cause status
CPT/HCPCS: 73552

== ENCOUNTER 2019-11-23 20:12 | Emergency (ER) | payer MEDICARE ==
[2019-11-23 21:16] LABS: APPEARANCE,URINE SL CLOUDY (CLEAR); BILIRUBIN,URINE NEGATIVE (NEGATIVE); COLOR,URINE YELLOW (YELLOW); GLUCOSE, URINE (UA) >=1000 mg/dL (NEGATIVE); KETONES,URINE NEGATIVE (NEGATIVE); LEUKOCYTE ESTERASE ,URINE NEGATIVE (NEGATIVE); NITRATE,URINE NEGATIVE (NEGATIVE); OCCULT BLOOD,URINE MODERATE (NEGATIVE); PROTEIN,URINE >=300 mg/dL (NEGATIVE); UROBILINOGEN,URINE 0.2 mg/dL (0.2-1.0)
[2019-11-23 21:21] LABS: HCG,QUAL RESULT NEGATIVE (NEGATIVE)
[2019-11-23 21:22] LABS: AMPHET/METH SCREEN,URINE NEGATIVE (NEGATIVE); BARBITURATE SCREEN, URINE NEGATIVE (NEGATIVE); BENZODIAZEPINES SCREEN,URINE NEGATIVE (NEGATIVE); CANNABINOID SCREEN,URINE NEGATIVE (NEGATIVE); COCAINE SCREEN,URINE NEGATIVE (NEGATIVE); OPIATE SCREEN,URINE NEGATIVE (NEGATIVE); PHENCYCLIDINE SCREEN,URINE NEGATIVE (NEGATIVE); RBC,URINE None Seen /HPF (0-1)
[2019-11-23 21:23] LABS: BACTERIA,URINE Few /HPF (None Seen)
[2019-11-23] MEDS ORDERED: INSULIN HUMULIN R 100 UNIT/ML 3ML ONE ×2 (21:34→22:48)
[2019-11-23] MEDS ORDERED: HYDRALAZINE HCL 20 MG/ML VIAL ONE (21:34)
[2019-11-23] MEDS ORDERED: SODIUM CHLORIDE 0.9% 1000ML 1,000 ML IV ONE (21:35)
[2019-11-23 21:37] LABS: BASOPHILS % (AUTO) 0.5 % (0.0-5.0); EOSINOPHILS % (AUTO) 3.1 % (0.0-8.0); HEMATOCRIT 35.4 % (36-48); MEAN CORPUSCULAR HEMOGLOBIN 27.1 pg (27.0-33.0); MEAN CORPUSCULAR HGB CONC 31.4 g/dL (32.0-36.0); MEAN CORPUSCULAR VOLUME 86.6 fL (79-99); MONOCYTES % (AUTO) 7.9 % (3.0-13.0); NEUTROPHILS % (AUTO) 69.1 % (40.0-77.0); PLATELET COUNT (AUTO) 233 K/uL (130-400); RED BLOOD CELL COUNT(AUTO) 4.09 MIL/uL (4.00-5.50); WHITE BLOOD COUNT (AUTO) 8.3 K/uL (4.8-10.8)
[2019-11-23 22:02] LABS: ALBUMIN 3.1 g/dL (3.5-5.0); BILIRUBIN,TOTAL 0.5 mg/dL (0.2-1.0); POTASSIUM 5.5 mmol/L (3.5-5.1); TOTAL PROTEIN, SERUM 8.6 g/dL (6.0-8.3)
[2019-11-23 22:03] LABS: CREATININE 9.6 mg/dL (0.5-1.5)
[2019-11-23] MEDS ORDERED: ONDANSETRON HCL 4 MG/2 ML VIAL ONE (23:02)
[2019-11-23] MEDS ORDERED: DEXTROSE 50%-WATER 50 ML DISP.SYRIN IV ONE (23:53)
[2019-11-24] MEDS ORDERED: DEXTROSE 50%-WATER 50 ML DISP.SYRIN IV ONE (01:38)
== END 2019-11-24 02:30 | disposition home or self-care (01) ==
LOC: EDH 20:12
DX: E11.65 Type 2 diabetes mellitus with hyperglycemia (principal); I12.0 Hypertensive chronic kidney disease with stage 5 chronic kidney disease or end stage renal disease; E11.22 Type 2 diabetes mellitus with diabetic chronic kidney disease; N18.6 End stage renal disease; F41.9 Anxiety disorder, unspecified; F32.9 Major depressive disorder, single episode, unspecified; Z90.49 Acquired absence of other specified parts of digestive tract; Z98.890 Other specified postprocedural states
CPT/HCPCS: 36415; 80053; 80305; 81001; 81025; 82948 ×6; 85025; 96365; 96375; 96376 ×2; 99284; J0360; J1815 ×2; J2405; J7030; J7070 ×2

== ENCOUNTER 2019-11-28 11:02 | Inpatient (IN) | payer MEDICARE ==
[~2019-11-28] VITALS: Ht 152.4 cm; Wt 64.0 kg
[2019-11-28 11:44] LABS: BASOPHILS % (AUTO) 0.4 % (0.0-5.0); LYMPHOCYTES % (AUTO) 9.4 % (21.0-51.0); MEAN CORPUSCULAR HEMOGLOBIN 27.4 pg (27.0-33.0); MEAN CORPUSCULAR HGB CONC 31.8 g/dL (32.0-36.0); MEAN CORPUSCULAR VOLUME 86.1 fL (79-99); MONOCYTES % (AUTO) 3.3 % (3.0-13.0); NEUTROPHILS % (AUTO) 86.1 % (40.0-77.0); PLATELET COUNT (AUTO) 237 K/uL (130-400); RED BLOOD CELL COUNT(AUTO) 4.53 MIL/uL (4.00-5.50); RED CELL DISTRIBUTION WIDTH 17.7 % (11.0-15.5); WHITE BLOOD COUNT (AUTO) 5.1 K/uL (4.8-10.8)
[2019-11-28 11:57] LABS: CREATININE 7.8 mg/dL (0.5-1.5); POTASSIUM 5.5 mmol/L (3.5-5.1)
[2019-11-28 12:00] LABS: BILIRUBIN,TOTAL 0.4 mg/dL (0.2-1.0); TOTAL PROTEIN, SERUM 8.2 g/dL (6.0-8.3)
[2019-11-28 12:27] LABS: B-TYPE NATRIURETIC PEPTIDE 1120 pg/mL (0-100)
[2019-11-28 12:57] LABS: INR 0.96 (0.85-1.15); PARTIAL THROMBOPLASTIN TIME 25.7 SEC (26.3-35.5); PROTHROMBIN TIME 10.4 SEC (9.6-11.6)
[2019-11-28] MEDS ORDERED: ONDANSETRON HCL 4 MG/2 ML VIAL IVP PRN (14:45)
[2019-11-28] MEDS ORDERED: BENZONATATE 100 MG CAPSULE PO PRN (14:45)
[2019-11-28] MEDS ORDERED: GLUCAGON 1MG KIT 1 MG ML IM PRN (15:00)
[2019-11-28] MEDS ORDERED: HYDRALAZINE HCL 20 MG/ML VIAL ONE (15:38)
[2019-11-28] MEDS ORDERED: INSULIN HUMULIN R 100 UNIT/ML 3ML SQ SCH (16:30)
[2019-11-28 17:15] VITALS: BP 139/79
--- NOTE | 2019-11-28 18:25 | NUR ---
REPORTED TO DR. SERVIN THE BLOOD SUGAR OF 533. HE ORDERED VENOUS BLOOD GAS AND VERBALIZED THAT IF THE PATIENT'S SUGAR IN VENOUS BLOOD GAS IS HIGH THEN TO SEND THE PATIENT IN ICU FOR INSULIN DRIP.
[2019-11-28 19:00] VITALS: BP 134/72
[2019-11-28] MEDS: INSULIN LISPRO 100 UNIT/ML 3ML SQ SCH (19:52)
[2019-11-28] MEDS: INSULIN GLARGINE 100 UNITS/ML 10 ML VIAL SQ SCH (19:53)
[2019-11-28 20:58] LABS: ABG OXYGEN SATURATION 98.6 % (95.0-99.0); BASE EXCESS,VENOUS BLOOD GAS -0.8 (-2.0-3.0); HCO3,VENOUS BLOOD GAS 24.9 (21.0-28.0); PCO2,VENOUS BLOOD GAS 45 (32-45)
[2019-11-29] VITALS (8 sets, daily range): BP systolic 132–167; BP diastolic 66–92
[2019-11-29] MEDS: HYDRALAZINE HCL 20 MG/ML VIAL IV PRN ×2 (04:37→20:03)
[2019-11-29 04:58] LABS: HEMATOCRIT 34.5 % (36-48); MEAN CORPUSCULAR HGB CONC 31.3 g/dL (32.0-36.0); MEAN CORPUSCULAR VOLUME 86.3 fL (79-99); PLATELET COUNT (AUTO) 229 K/uL (130-400); WHITE BLOOD COUNT (AUTO) 6.7 K/uL (4.8-10.8)
[2019-11-29 05:05] LABS: HEMOGLOBIN A1C 13.3 % (4.0-6.0)
[2019-11-29 05:19] LABS: POTASSIUM 4.3 mmol/L (3.5-5.1)
[2019-11-29] MEDS: INSULIN LISPRO 100 UNIT/ML 3ML SQ SCH ×5 (06:13→17:45)
--- NOTE | 2019-11-29 06:20 | NUR ---
took 1 cup of orange juice for patient to drink and prevent hypoglycemia after insulin administration
[2019-11-29] MEDS: DEXTROSE 50%-WATER 50 ML DISP.SYRIN IV PRN (11:50)
[2019-11-29] MEDS: AMLODIPINE BESYLATE 5 MG TAB PO SCH (13:30)
[2019-11-29] MEDS: INSULIN GLARGINE 100 UNITS/ML 10 ML VIAL SQ SCH (19:59)
[2019-11-30 03:00] VITALS: BP 149/86
[2019-11-30 06:35] LABS: BASOPHILS % (AUTO) 0.7 % (0.0-5.0); HEMATOCRIT 36.3 % (36-48); LYMPHOCYTES % (AUTO) 30.8 % (21.0-51.0); MEAN CORPUSCULAR HEMOGLOBIN 26.6 pg (27.0-33.0); MEAN CORPUSCULAR HGB CONC 30.6 g/dL (32.0-36.0); MEAN CORPUSCULAR VOLUME 86.8 fL (79-99); MONOCYTES % (AUTO) 10.3 % (3.0-13.0); NEUTROPHILS % (AUTO) 54.8 % (40.0-77.0); PLATELET COUNT (AUTO) 321 K/uL (130-400); RED BLOOD CELL COUNT(AUTO) 4.18 MIL/uL (4.00-5.50); RED CELL DISTRIBUTION WIDTH 18.7 % (11.0-15.5); WHITE BLOOD COUNT (AUTO) 7.1 K/uL (4.8-10.8)
[2019-11-30 06:47] LABS: POTASSIUM 5.2 mmol/L (3.5-5.1)
[2019-11-30 06:51] LABS: CREATININE 7.9 mg/dL (0.5-1.5)
[2019-11-30 07:19] VITALS: BP 171/92
[2019-11-30] MEDS ORDERED: INSULIN LISPRO 100 UNIT/ML 3ML SQ SCH (07:30)
[2019-11-30] MEDS: AMLODIPINE BESYLATE 5 MG TAB PO SCH (09:26)
[2019-11-30] MEDS: DEXTROSE 50%-WATER 50 ML DISP.SYRIN IV PRN (11:12)
--- NOTE | 2019-11-30 11:54 | NUR ---
NOTIFIED DR. SERVIN THAT THE PATIENT'S BLOOD SUGAR IS 32 THAT THE SHE WAS GIVEN D50. I INFORMED DR. SERVIN THAT THE INSULIN LISPRO 5 UNITS WAS GIVEN AFTER HER MEAL AND THE BLOOD SUGAR WAS CHECKED BEFORE SHE HAD HER BREAKFAST WHICH SHE HAS BLOOD SUGAR OF 120. HE VERBALIZED THAT HE WILL NOT DISCHARGE THE PATIENT AND WILL PUT AN ORDER FOR INTAKE SPECIALIST. WILL NOTIFY THE PATIENT FOR THIS TREATMENT PLAN.
[2019-11-30 12:00] VITALS: BP 152/89
--- NOTE | 2019-11-30 12:51 | NUR ---
EXPLAINED THE PATIENT THAT DR. SERVIN VERBALIZED THAT SHE WILL NOT GOING TO BE DISCHARGE TODAY BECAUSE HER BLOOD SUGAR IS NOT CONTROLLED AND THAT HE WILL WANT THE CLIENT CARE REPRESENTATIVE TO SEE HER TOMORROW. SHE WAS UPSET AND SHE VERBALIZED THAT SHE WILL LEAVE NO MATTER WHAT. I TOLD HER THAT WE CANNOT HOLD HER IF THAT IS HER WISH AND SHE WILL HAVE TO SIGN THE AGAINST MEDICAL ADVICE FORM IF SHE WILL LEAVE THE HOSPITAL. SHE VERBALIZED THAT SHE WILL SIGN THE AMA FORM. NOTIFIED DR. SERVIN ABOUT IT.
--- NOTE | 2019-11-30 15:47 | NUR ---
CM NOTE CM attempted to visit with patient to discuss d/c planning. Pt left AMA. CM also unable to obtain IM letter. No needs per chart review. Pt discharged home. Addendum: 11/30/19 at 1550 by TEN SO Amended: Links added.
[2019-12-02 07:13] LABS: HEPATITIS Bs ANTIGEN SCREEN P Negative (Negative)
== END 2019-11-30 14:49 | disposition left against medical advice (07) | DRG 304 ==
LOC: EDH 11:02 → OBSVTOIN 14:43 → EDHIP 14:43 → 3BH 17:06
PROVIDERS: ADMIT Internal Medicine; ATTEND Internal Medicine
PROC: 5A1D70Z Performance of Urinary Filtration, Intermittent, Less than 6 Hours Per Day (ICD-10-PCS; principal; 2019-11-28)
DX: I16.0 Hypertensive urgency (principal); N18.6 End stage renal disease; J81.1 Chronic pulmonary edema; I12.0 Hypertensive chronic kidney disease with stage 5 chronic kidney disease or end stage renal disease; E87.5 Hyperkalemia; E10.65 Type 1 diabetes mellitus with hyperglycemia; E10.22 Type 1 diabetes mellitus with diabetic chronic kidney disease; F41.9 Anxiety disorder, unspecified; F32.9 Major depressive disorder, single episode, unspecified; E10.649 Type 1 diabetes mellitus with hypoglycemia without coma; R09.02 Hypoxemia; Z99.2 Dependence on renal dialysis; Z91.15 Patient's noncompliance with renal dialysis; Z91.19 Patient's noncompliance with other medical treatment and regimen; Z82.41 Family history of sudden cardiac death; Z83.3 Family history of diabetes mellitus; Z82.3 Family history of stroke; Z82.0 Family history of epilepsy and other diseases of the nervous system; Z82.5 Family history of asthma and other chronic lower respiratory diseases; Z82.49 Family history of ischemic heart disease and other diseases of the circulatory system
CPT/HCPCS: 36415; 36600; 70450; 71045; 80048; 80053; 82550; 82803; 82948; 83036; 83880; 84484; 85025; 85027; 85610; 85730; 86704; 86706; 87340; 87520; 90935; G0378; J0360; J7070

== ENCOUNTER 2020-02-10 10:31 | Inpatient (IN) | payer MEDICARE ==
[2020-02-10] VITALS (13 sets, daily range): BP systolic 128–166; BP diastolic 48–95
[~2020-02-10] VITALS: Ht 152.4 cm; Wt 66.9 kg
[~2020-02-10 10:31] MED LIST changes: +AMLO-257 PO; -AMLO5TAB9 PO
[2020-02-10] MEDS ORDERED: IOHEXOL 350 MG/ML 100ML INFUS..BTL IV ONE (11:32)
[2020-02-10 11:44] LABS: BASOPHILS % (AUTO) 0.3 % (0.0-5.0); EOSINOPHILS % (AUTO) 0.9 % (0.0-8.0); HEMATOCRIT 26.9 % (36-48); LYMPHOCYTES % (AUTO) 3.5 % (21.0-51.0); MEAN CORPUSCULAR HEMOGLOBIN 27.3 pg (27.0-33.0); MEAN CORPUSCULAR HGB CONC 31.2 g/dL (32.0-36.0); MEAN CORPUSCULAR VOLUME 87.3 fL (79-99); MONOCYTES % (AUTO) 4.4 % (3.0-13.0); NEUTROPHILS % (AUTO) 88.8 % (40.0-77.0); PLATELET COUNT (AUTO) 670 K/uL (130-400); RED BLOOD CELL COUNT(AUTO) 3.08 MIL/uL (4.00-5.50); RED CELL DISTRIBUTION WIDTH 16.4 % (11.0-15.5)
[2020-02-10 11:48] LABS: WHITE BLOOD COUNT (AUTO) 30.7 K/uL (4.8-10.8)
[2020-02-10] MEDS ORDERED: VANCOMYCIN 1GM+NS 250ML 250 ML IV ONE (11:52)
[2020-02-10 12:05] LABS: INR 1.01 (0.85-1.15); PARTIAL THROMBOPLASTIN TIME 32.4 SEC (26.3-35.5); PROTHROMBIN TIME 10.9 SEC (9.6-11.6)
[2020-02-10 12:10] LABS: ALANINE AMINOTRANSFERASE 7 U/L (12-78); ALBUMIN 2.4 g/dL (3.5-5.0); ASPARTATE AMINOTRANSFERASE 10 U/L (10-37); CARBON DIOXIDE 24 mmol/L (21-32); CREATINE KINASE, TOTAL 10 U/L (21-232); GLOMERULAR FILTR. RATE CALC 9 mL/min (>60); MYOGLOBIN 67 ng/mL (10-92); POTASSIUM 4.1 mmol/L (3.5-5.1); SODIUM SERUM 117 mmol/L (136-145); TOTAL PROTEIN, SERUM 9.3 g/dL (6.0-8.3); TROPONIN I < 0.04 ng/mL (0.00-0.06); UREA NITROGEN, BLOOD 36 mg/dL (7-18)
[2020-02-10 12:13] LABS: CHLORIDE 80 mmol/L (101-111); GLUCOSE,RANDOM 676 mg/dL (70-105)
[2020-02-10 12:18] LABS: BASOPHILS % (MANUAL) 1 % (0-2); LYMPHOCYTES % (MANUAL) 6 % (22-44); MAN.DIFF COMMENT-IMPRESSION MANUAL DIFFERENTIAL; MONOCYTES % (MANUAL) 4 % (2-9); SEGMENTED NEUTROPHILS % 89 % (40-70)
[2020-02-10 12:21] LABS: PLATELET MORPHOLOGY COMMENT INCREASED
[2020-02-10] MEDS ORDERED: INSULIN HUMULIN R 100 UNIT/ML 3ML ONE (12:29)
[2020-02-10] MEDS ORDERED: SODIUM CHLORIDE 0.9% 1000ML 1,000 ML IV ONE (12:30)
[2020-02-10 12:57] LABS: ABG BASE EXCESS -3.1 mmol/L (-2.0-3.0); ABG HCO3 22.5 mmol/L (21.0-28.0); ABG OXYGEN SATURATION 88.8 % (95.0-99.0); ABG PCO2 42 mmHg (32-45)
[2020-02-10] MEDS ORDERED: ZOSYN 3.375GM+NS 50ML 50 ML IV ONE (13:49)
[2020-02-10] MEDS ORDERED: DEXTROSE 5 %-0.45 % NACL 1,000 ML IV PRN (13:59)
[2020-02-10] MEDS ORDERED: ONDANSETRON HCL 4 MG/2 ML VIAL IV PRN (14:00)
[2020-02-10] MEDS ORDERED: INSULIN HUMULIN R 100 UNIT/ML 3ML IV SCH (14:00)
[2020-02-10] MEDS ORDERED: POTASSIUM CHLORIDE 10MEQ/100ML 100 ML IV PRN (14:00)
[2020-02-10] MEDS ORDERED: CEFTRIAXONE SODIUM 1 GM IV SCH (14:00)
[2020-02-10] MEDS ORDERED: AZITHROMYCIN 500MG+NS 250ML 250 ML IV SCH (14:00)
[2020-02-10] MEDS ORDERED: ACETAMINOPHEN 325 MG TAB PO PRN (14:00)
[2020-02-10] MEDS: ACETAMINOPHEN 325 MG TAB PO PRN (16:27)
[2020-02-10 18:52] LABS: BASOPHILS % (AUTO) 0.3 % (0.0-5.0); EOSINOPHILS % (AUTO) 1.2 % (0.0-8.0); HEMATOCRIT 24.8 % (36-48); LYMPHOCYTES % (AUTO) 5.3 % (21.0-51.0); MEAN CORPUSCULAR HGB CONC 32.3 g/dL (32.0-36.0); MEAN CORPUSCULAR VOLUME 83.8 fL (79-99); MONOCYTES % (AUTO) 6.1 % (3.0-13.0); NEUTROPHILS % (AUTO) 85.5 % (40.0-77.0); PLATELET COUNT (AUTO) 583 K/uL (130-400); RED BLOOD CELL COUNT(AUTO) 2.96 MIL/uL (4.00-5.50); RED CELL DISTRIBUTION WIDTH 16.1 % (11.0-15.5)
[2020-02-10 19:04] LABS: CREATININE 5.9 mg/dL (0.5-1.5); MAGNESIUM 1.9 mg/dL (1.80-2.40); POTASSIUM 3.9 mmol/L (3.5-5.1)
[2020-02-10] MEDS: HEPARIN 25000 UNITS/250 ML D5W 250 ML IV SCH (19:13)
[2020-02-10 19:28] LABS: WHITE BLOOD COUNT (AUTO) 34.9 K/uL (4.8-10.8)
[2020-02-10] MEDS: MORPHINE SULFATE 2 MG/ML 1ML SYG IM PRN (21:37)
--- NOTE | 2020-02-10 21:50 | NUR ---
6 FR 3 LUMEN PICC INSERTED SUCCESSFULLY TO LEFT BASILIC VEIN, USING ASEPTIC TECHNIQUE. 1 ATTEMPT, NO DIFFICULTY WITH ACCESSING VEIN. PT TOLERATED PROCEDURE WELL. (+) BULLSEYE INDICATES "PICC TIP IN LOWER 1/3 OF SVC OR AT CAVOATRIAL JUNCTION. PICC OK TO US PER VPS PROTOCOL. RN AWARE.
[2020-02-10] MEDS: DEXTROSE 5 %-0.225 % NACL 500 ML IV SCH ×2 (21:52→23:55)
[2020-02-10] MEDS ORDERED: LOSA100T58 PO (23:39)
[2020-02-10] MEDS ORDERED: AMOX1TAB16 PO (23:43)
[2020-02-11] VITALS (37 sets, daily range): BP systolic 119–207; BP diastolic 49–111
[2020-02-11] MEDS ORDERED: INSULIN HUMULIN R 100 UNIT/ML 3ML ONE (00:04)
[2020-02-11] MEDS: INSULIN HUMULIN R 100 UNIT/ML 3ML SQ SCH ×5 (00:27→23:36)
[2020-02-11 00:39] LABS: INR 1.06 (0.85-1.15); PARTIAL THROMBOPLASTIN TIME 42.2 SEC (26.3-35.5); PROTHROMBIN TIME 11.4 SEC (9.6-11.6)
[2020-02-11] MEDS: HEPARIN 25000 UNITS/250 ML D5W 250 ML IV SCH (01:21)
[2020-02-11] MEDS: HYDRALAZINE HCL 20 MG/ML VIAL IV PRN ×2 (02:08→07:49)
[2020-02-11] MEDS: DEXTROSE 5 %-0.225 % NACL 500 ML IV SCH ×2 (03:00→05:54)
[2020-02-11] MEDS: MORPHINE SULFATE 2 MG/ML 1ML SYG IM PRN (04:00)
[2020-02-11 04:06] LABS: BASOPHILS % (AUTO) 0.2 % (0.0-5.0); EOSINOPHILS % (AUTO) 1.6 % (0.0-8.0); HEMATOCRIT 24.3 % (36-48); LYMPHOCYTES % (AUTO) 8.7 % (21.0-51.0); MEAN CORPUSCULAR HEMOGLOBIN 27.3 pg (27.0-33.0); MEAN CORPUSCULAR HGB CONC 32.5 g/dL (32.0-36.0); MEAN CORPUSCULAR VOLUME 84.1 fL (79-99); MONOCYTES % (AUTO) 4.9 % (3.0-13.0); NEUTROPHILS % (AUTO) 81.8 % (40.0-77.0); PLATELET COUNT (AUTO) 659 K/uL (130-400); RED BLOOD CELL COUNT(AUTO) 2.89 MIL/uL (4.00-5.50)
[2020-02-11 04:20] LABS: CREATININE 6.7 mg/dL (0.5-1.5); MAGNESIUM 1.7 mg/dL (1.80-2.40); POTASSIUM 3.9 mmol/L (3.5-5.1)
[2020-02-11 04:46] LABS: WHITE BLOOD COUNT (AUTO) 41.6 K/uL (4.8-10.8)
[2020-02-11] MEDS: ACETAMINOPHEN 325 MG TAB PO PRN (07:28)
[2020-02-11] MEDS: FAMOTIDINE/PF 20 MG/2 ML VIAL IV SCH (08:47)
[2020-02-11] MEDS: ENOXAPARIN SODIUM 30 MG/0.3 ML SQ SCH (08:48)
[2020-02-11] MEDS: METOPROLOL TARTRATE 50 MG TAB PO SCH ×2 (09:04→11:22)
[2020-02-11] MEDS ORDERED: EPOETIN ALFA 10,000 UNIT/ML VIAL SQ PRN (09:30)
[2020-02-11] MEDS ORDERED: RENAL DOSE IV SCH ×2 (09:30→10:15)
[2020-02-11] MEDS ORDERED: VANCOMYCIN PROTOCOL PER PHARMACY IV SCH (09:45)
[2020-02-11] MEDS ORDERED: COMPOUND IV REFRIGERATED 1 EACH IVSOLN MISC PRN (10:00)
[2020-02-11] MEDS ORDERED: LEVOFLOXACIN 500 MG/D5W 100 ML 100 ML IV SCH ×2 (10:30→10:45)
[2020-02-11] MEDS: ZOSYN 3.375GM+NS 50ML 50 ML IV SCH ×2 (11:21→23:12)
[2020-02-11] MEDS ORDERED: LIDOCAINE HCL 1% MDV 50ML VIAL ONE (12:49)
[2020-02-11] MEDS ORDERED: SODIUM BICARB 50MEQ 50ML VIAL ONE (12:49)
--- NOTE | 2020-02-11 12:51 | NUR ---
DC PLAN PATIENT WAS IN COVID UNIT STILL HAS SIGN ON DOOR. NURSE PLACING LINE. FROM HISTORY OF LAST ADMISSION. PATIENT LIVES WITH CHILDREN BOYFRIED HELPS. PROVIDER 22 HOURS, RENAL MWF 10, HOME. Addendum: 02/11/20 at 1253 by BRY VELASQUEZ RN CM Amended: Links added.
[2020-02-11] MEDS ORDERED: ZOSYN 3.375GM+NS 50ML 50 ML IV SCH (13:00)
[2020-02-11] MEDS: MORPHINE SULFATE 2 MG/ML 1ML SYG IV PRN ×3 (14:21→22:16)
[2020-02-11 14:26] LABS: INR 1.06 (0.85-1.15); PARTIAL THROMBOPLASTIN TIME 39.2 SEC (26.3-35.5); PROTHROMBIN TIME 11.4 SEC (9.6-11.6)
[2020-02-11] MEDS: AMLODIPINE BESYLATE 5 MG TAB PO SCH (20:32)
[2020-02-11] MEDS: LOSARTAN 100 MG TABLET PO SCH (20:32)
[2020-02-12] VITALS (37 sets, daily range): BP systolic 120–166; BP diastolic 56–84
[2020-02-12 04:52] LABS: BASOPHILS % (AUTO) 0.3 % (0.0-5.0); EOSINOPHILS % (AUTO) 0.3 % (0.0-8.0); LYMPHOCYTES % (AUTO) 5.8 % (21.0-51.0); MEAN CORPUSCULAR HEMOGLOBIN 27.6 pg (27.0-33.0); MEAN CORPUSCULAR HGB CONC 32.5 g/dL (32.0-36.0); MEAN CORPUSCULAR VOLUME 84.9 fL (79-99); MONOCYTES % (AUTO) 4.6 % (3.0-13.0); NEUTROPHILS % (AUTO) 85.7 % (40.0-77.0); NUCLEATED RED BLOOD CELLS 0.1 % (0.0-0.19); PLATELET COUNT (AUTO) 559 K/uL (130-400); RED BLOOD CELL COUNT(AUTO) 2.39 MIL/uL (4.00-5.50); RED CELL DISTRIBUTION WIDTH 16.3 % (11.0-15.5)
[2020-02-12 04:59] LABS: WHITE BLOOD COUNT (AUTO) 35.5 K/uL (4.8-10.8)
[2020-02-12 05:00] LABS: HEMATOCRIT 20.3 % (36-48)
[2020-02-12 05:11] LABS: HEMOGLOBIN A1C 14.8 % (4.0-6.0); INR 1.12 (0.85-1.15); PARTIAL THROMBOPLASTIN TIME 49.9 SEC (26.3-35.5)
[2020-02-12 05:15] LABS: BAND NEUTROPHILS % (MANUAL) 8 % (0-2); LYMPHOCYTES % (MANUAL) 6 % (22-44); MAN.DIFF COMMENT-IMPRESSION MANUAL DIFFERENTIAL; MONOCYTES % (MANUAL) 2 % (2-9); SEGMENTED NEUTROPHILS % 84 % (40-70)
[2020-02-12 05:25] LABS: ALBUMIN 1.7 g/dL (3.5-5.0); ASPARTATE AMINOTRANSFERASE 12 U/L (10-37); BILIRUBIN,TOTAL 0.7 mg/dL (0.2-1.0); CARBON DIOXIDE 27 mmol/L (21-32); CHLORIDE 91 mmol/L (101-111); CREATININE 4.4 mg/dL (0.5-1.5); GLOMERULAR FILTR. RATE CALC 13 mL/min (>60); GLUCOSE,RANDOM 208 mg/dL (70-105); PHOSPHORUS 6.7 mg/dL (2.5-4.9); POTASSIUM 3.9 mmol/L (3.5-5.1); SODIUM SERUM 129 mmol/L (136-145); THYROID STIMULATING HORMONE 1.08 uIU/mL (0.36-3.74); TOTAL PROTEIN, SERUM 7.7 g/dL (6.0-8.3); UREA NITROGEN, BLOOD 23 mg/dL (7-18)
[2020-02-12 05:30] LABS: ALANINE AMINOTRANSFERASE < 6 U/L (12-78)
[2020-02-12] MEDS: MORPHINE SULFATE 2 MG/ML 1ML SYG IV PRN ×3 (05:37→22:46)
[2020-02-12] MEDS: ACETAMINOPHEN 325 MG TAB PO PRN ×2 (05:37→15:55)
[2020-02-12 05:49] LABS: ERYTHROCYTE SEDIMENTATION RATE 136 MM/HR (0-20)
[2020-02-12] MEDS: INSULIN HUMULIN R 100 UNIT/ML 3ML SQ SCH ×2 (05:51→11:33)
[2020-02-12 06:11] LABS: HEPATITIS A ANTIBODY IGM Negative (Negative); HEPATITIS B CORE IGM Negative (Negative); HEPATITIS Bs ANTIGEN SCREEN P Negative (Negative)
--- NOTE | 2020-02-12 07:00 | NUR ---
H/H 0607 HOSPITALIST GEAR DESIGN ENGINEER PAGED TO NOTIFY OF CRITICAL H/H. AWAITING RETURN CALL
[2020-02-12] MEDS: LOSARTAN 100 MG TABLET PO SCH (09:06)
[2020-02-12] MEDS: AMLODIPINE BESYLATE 5 MG TAB PO SCH (09:06)
[2020-02-12] MEDS: FAMOTIDINE/PF 20 MG/2 ML VIAL IV SCH (09:06)
[2020-02-12] MEDS: ENOXAPARIN SODIUM 30 MG/0.3 ML SQ SCH (09:07)
[2020-02-12] MEDS: ZOSYN 3.375GM+NS 50ML 50 ML IV SCH ×2 (09:18→21:46)
[2020-02-12] MEDS: HEPARIN 25000 UNITS/250 ML D5W 250 ML IV SCH (10:06)
--- NOTE | 2020-02-12 15:15 | NUR ---
SPOKE WITH DR LIAO AND HE IS ON VACATION TILL SUNDAY, AND WILL BE BACK FEBRUARY 16, 2020. HE SAID THAT IF THE PATIENT IS STILL HERE ON SUNDAY HE WILL SEE HER HERE IN THE HOSPITAL. INSTRUCTED ME TO NOTIFY DR CONDE THAT HE IS AVAILABLE BY PHONE IF HE NEEDS TO SPEAK WITH HIM. IF PATIENT IS DISCHARGED BEFORE SUNDAY, SHE CAN FOLLOW UP WITH HIM IN HIS OFFICE. Addendum: 02/12/20 at 1521 by HEATHER ANDRE RN RN Amended: Links added.
[2020-02-12 16:50] LABS: HEMATOCRIT 20.1 % (36-48)
[2020-02-12] MEDS: INSULIN LISPRO 100 UNIT/ML 3ML SQ SCH ×3 (17:00→20:53)
[2020-02-12] MEDS: METOPROLOL TARTRATE 50 MG TAB PO SCH (17:33)
[2020-02-12] MEDS: SODIUM CHLORIDE 0.9% 250 ML IV ONE ×2 (20:45→21:46)
[2020-02-12] MEDS: INSULIN GLARGINE 100 UNITS/ML 10 ML VIAL SQ SCH (20:55)
[2020-02-12] MEDS: VANCOMYCIN 1.25 GM in SODIUM CHLORIDE 0.9% 250 ML IV SCH (22:00)
[2020-02-13] VITALS (40 sets, daily range): BP systolic 114–162; BP diastolic 59–100
--- NOTE | 2020-02-13 06:00 | NUR ---
TRANSFUSION PATIENT TRANSFUSION COMPLETED WITHOUT INCIDENT. PATIENT STATES THAT FEELS THOUGH HAS MORE ENERGY. PT AAO SITTING UP IN BED WATCHING TV
[2020-02-13] MEDS: INSULIN LISPRO 100 UNIT/ML 3ML SQ SCH ×7 (06:27→21:00)
[2020-02-13 08:37] LABS: BASOPHILS % (AUTO) 0.3 % (0.0-5.0); EOSINOPHILS % (AUTO) 0.7 % (0.0-8.0); HEMATOCRIT 28.8 % (36-48); LYMPHOCYTES % (AUTO) 5.1 % (21.0-51.0); MEAN CORPUSCULAR HEMOGLOBIN 28.1 pg (27.0-33.0); MEAN CORPUSCULAR VOLUME 85.2 fL (79-99); NEUTROPHILS % (AUTO) 86.3 % (40.0-77.0); PLATELET COUNT (AUTO) 532 K/uL (130-400); RED BLOOD CELL COUNT(AUTO) 3.38 MIL/uL (4.00-5.50); RED CELL DISTRIBUTION WIDTH 15.3 % (11.0-15.5)
[2020-02-13 08:46] LABS: INR 1.09 (0.85-1.15); PARTIAL THROMBOPLASTIN TIME 33.1 SEC (26.3-35.5); PROTHROMBIN TIME 11.7 SEC (9.6-11.6)
[2020-02-13] MEDS: MORPHINE SULFATE 2 MG/ML 1ML SYG IV PRN ×3 (08:55→23:21)
[2020-02-13 08:56] LABS: ALBUMIN 1.7 g/dL (3.5-5.0); BILIRUBIN,TOTAL 0.9 mg/dL (0.2-1.0); CREATININE 6.6 mg/dL (0.5-1.5); POTASSIUM 4.1 mmol/L (3.5-5.1); TOTAL PROTEIN, SERUM 8.2 g/dL (6.0-8.3)
[2020-02-13] MEDS: LOSARTAN 100 MG TABLET PO SCH (08:56)
[2020-02-13] MEDS: LEVOFLOXACIN 250 MG/D5W 50ML 50 ML IVPB SCH (08:56)
[2020-02-13] MEDS: AMLODIPINE BESYLATE 5 MG TAB PO SCH (08:56)
[2020-02-13] MEDS: FAMOTIDINE/PF 20 MG/2 ML VIAL IV SCH (08:56)
[2020-02-13] MEDS: ENOXAPARIN SODIUM 30 MG/0.3 ML SQ SCH (09:00)
[2020-02-13 09:10] LABS: CRP QUANTITATIVE 437.5 mg/L (0.00-9.0)
[2020-02-13 09:39] LABS: ERYTHROCYTE SEDIMENTATION RATE 143 MM/HR (0-20)
[2020-02-13 09:40] LABS: WHITE BLOOD COUNT (AUTO) 34.3 K/uL (4.8-10.8)
[2020-02-13 10:15] LABS: EOSINOPHILS % (MANUAL) 1 % (1-6); LYMPHOCYTES % (MANUAL) 7 % (22-44); MAN.DIFF COMMENT-IMPRESSION MANUAL DIFFERENTIAL; MONOCYTES % (MANUAL) 3 % (2-9); PLATELET MORPHOLOGY COMMENT MARKED INCREASE; SEGMENTED NEUTROPHILS % 89 % (40-70)
[2020-02-13] MEDS: ZOSYN 3.375GM+NS 50ML 50 ML IV SCH ×2 (10:42→23:21)
[2020-02-13] MEDS ORDERED: ALTEPLASE 2 MG/VIAL IVCATH SCH (11:45)
[2020-02-13] MEDS ORDERED: SUCCINYLCHOLINE CHLORIDE 20 MG/ML 10 ML VIAL ONE (14:09)
[2020-02-13] MEDS ORDERED: FENTANYL CITRATE PF 50 MCG/1 ML 2ML VIAL ONE (14:09)
[2020-02-13] MEDS ORDERED: MIDAZOLAM HCL 1 MG/ML 2ML VIAL ONE (14:09)
[2020-02-13] MEDS ORDERED: PROPOFOL 10 MG/ML 20ML VIAL IV ONE (14:09)
[2020-02-13] MEDS ORDERED: LIDOCAINE HCL 1% 20 ML VIAL ONE (14:25)
[2020-02-13] MEDS ORDERED: EPOETIN ALFA 10,000 UNIT/ML VIAL SQ SCH (15:30)
[2020-02-13] MEDS: METOPROLOL TARTRATE 50 MG TAB PO SCH (16:49)
[2020-02-13 17:16] LABS: APPEARANCE BODY FLUID SLIGHTLY CLOUDY (CLEAR); COLOR,BODY FLUID COLORLESS (LT YELLOW); SPECIMENTYPE,BODY FLUID LAVAGE
[2020-02-13 17:17] LABS: BODY FLUID RBC 75 /cu. mm.; BODY FLUID WBC 95 /cu. mm.; TOTAL VOLUME,BODY FLUID 17 mL
[2020-02-13 17:26] LABS: BF LYMPHOCYTE 4 %; BF MESOTHELIAL 48 %
[2020-02-13] MEDS: INSULIN GLARGINE 100 UNITS/ML 10 ML VIAL SQ SCH (21:00)
[2020-02-13] MEDS ORDERED: LOPERAMIDE HCL 2 MG CAP PO ONE (23:14)
[2020-02-13] MEDS ORDERED: LOPERAMIDE 1 MG/7.5 ML UDCUP PO PRN (23:15)
[2020-02-14 03:34] VITALS: BP 129/75
[2020-02-14 04:05] LABS: BASOPHILS % (AUTO) 0.4 % (0.0-5.0); EOSINOPHILS % (AUTO) 0.9 % (0.0-8.0); HEMATOCRIT 29.9 % (36-48); LYMPHOCYTES % (AUTO) 3.9 % (21.0-51.0); MEAN CORPUSCULAR HEMOGLOBIN 27.7 pg (27.0-33.0); MEAN CORPUSCULAR HGB CONC 32.1 g/dL (32.0-36.0); MEAN CORPUSCULAR VOLUME 86.4 fL (79-99); MONOCYTES % (AUTO) 5.4 % (3.0-13.0); NEUTROPHILS % (AUTO) 87.3 % (40.0-77.0); PLATELET COUNT (AUTO) 481 K/uL (130-400); RED BLOOD CELL COUNT(AUTO) 3.46 MIL/uL (4.00-5.50); RED CELL DISTRIBUTION WIDTH 15.8 % (11.0-15.5); WHITE BLOOD COUNT (AUTO) 26.6 K/uL (4.8-10.8)
[2020-02-14 04:29] LABS: ALBUMIN 1.8 g/dL (3.5-5.0); CREATININE 4.4 mg/dL (0.5-1.5); MAGNESIUM 1.9 mg/dL (1.80-2.40); PHOSPHORUS 5.2 mg/dL (2.5-4.9); POTASSIUM 4.3 mmol/L (3.5-5.1)
[2020-02-14] MEDS: INSULIN LISPRO 100 UNIT/ML 3ML SQ SCH ×7 (05:52→22:00)
[2020-02-14 08:00] VITALS: BP 116/72
--- NOTE | 2020-02-14 08:07 | NUR ---
GLUCOSE 477/PAGED HOSPITALIST PENDING CB. RECHECK OF SUGAR WAS 423. 5 UNITS OF SCHEDULED HUMALOG TO BE GIVEN MEANWHILE PENDING CB
[2020-02-14] MEDS: AMLODIPINE BESYLATE 5 MG TAB PO SCH (08:10)
[2020-02-14] MEDS: LOSARTAN 100 MG TABLET PO SCH (08:10)
[2020-02-14] MEDS: ENOXAPARIN SODIUM 30 MG/0.3 ML SQ SCH (08:10)
[2020-02-14] MEDS: ZOSYN 3.375GM+NS 50ML 50 ML IV SCH ×2 (08:10→22:00)
[2020-02-14] MEDS: FAMOTIDINE/PF 20 MG/2 ML VIAL IV SCH (08:10)
[2020-02-14] MEDS: MORPHINE SULFATE 2 MG/ML 1ML SYG IV PRN ×4 (08:20→22:03)
[2020-02-14] MEDS: LOPERAMIDE HCL 2 MG CAP PO PRN ×2 (08:20→22:03)
--- NOTE | 2020-02-14 10:07 | NUR ---
DR Damon ROUNDED AT THIS TIME ISSUES ADDRESSED
[2020-02-14 11:01] VITALS: BP 136/75
[2020-02-14 16:00] VITALS: BP 133/64
[2020-02-14] MEDS: METOPROLOL TARTRATE 50 MG TAB PO SCH (17:27)
[2020-02-14 19:00] VITALS: BP 137/71
[2020-02-14] MEDS: INSULIN GLARGINE 100 UNITS/ML 10 ML VIAL SQ SCH (22:00)
[2020-02-14 23:00] VITALS: BP 118/71
[2020-02-15 03:00] VITALS: BP 126/67
[2020-02-15] MEDS: MORPHINE SULFATE 2 MG/ML 1ML SYG IV PRN ×3 (05:05→18:35)
[2020-02-15] MEDS: INSULIN LISPRO 100 UNIT/ML 3ML SQ SCH ×7 (07:30→21:00)
[2020-02-15 07:45] VITALS: BP 148/88
[2020-02-15] MEDS: ENOXAPARIN SODIUM 30 MG/0.3 ML SQ SCH (09:26)
[2020-02-15] MEDS: LOSARTAN 100 MG TABLET PO SCH (09:26)
[2020-02-15] MEDS: FAMOTIDINE/PF 20 MG/2 ML VIAL IV SCH (09:26)
[2020-02-15] MEDS: AMLODIPINE BESYLATE 5 MG TAB PO SCH (09:26)
[2020-02-15] MEDS: LEVOFLOXACIN 250 MG/D5W 50ML 50 ML IVPB SCH (09:27)
[2020-02-15] MEDS: ZOSYN 3.375GM+NS 50ML 50 ML IV SCH ×2 (10:04→21:18)
[2020-02-15 12:00] VITALS: BP 142/75
[2020-02-15 16:00] VITALS: BP 119/60
[2020-02-15] MEDS: METOPROLOL TARTRATE 50 MG TAB PO SCH (17:33)
[2020-02-15 20:09] VITALS: BP 124/72
[2020-02-15] MEDS ORDERED: DEXTROSE 50%-WATER 50 ML DISP.SYRIN IV ONE (20:34)
--- NOTE | 2020-02-15 20:41 | NUR ---
BLOOD SUGAR 29. DEXTROSE 50% (50ML) GIVEN VIA PICC LINE. PT ALERT AND TALKING, STATES FEELS SHAKY AND SWEATY.
--- NOTE | 2020-02-15 21:05 | NUR ---
RECHECK SUGAR IS 151.
[2020-02-15] MEDS: INSULIN GLARGINE 100 UNITS/ML 10 ML VIAL SQ SCH (21:19)
[2020-02-15 23:45] VITALS: BP 116/72
[2020-02-16] MEDS: MORPHINE SULFATE 2 MG/ML 1ML SYG IV PRN ×4 (03:21→21:21)
[2020-02-16 04:13] VITALS: BP 140/76
[2020-02-16 05:50] LABS: BASOPHILS % (AUTO) 0.6 % (0.0-5.0); EOSINOPHILS % (AUTO) 2.4 % (0.0-8.0); HEMATOCRIT 30.8 % (36-48); LYMPHOCYTES % (AUTO) 7.1 % (21.0-51.0); MEAN CORPUSCULAR HEMOGLOBIN 28.2 pg (27.0-33.0); MEAN CORPUSCULAR HGB CONC 32.1 g/dL (32.0-36.0); MEAN CORPUSCULAR VOLUME 87.7 fL (79-99); MONOCYTES % (AUTO) 6.5 % (3.0-13.0); NEUTROPHILS % (AUTO) 79.6 % (40.0-77.0); PLATELET COUNT (AUTO) 481 K/uL (130-400); RED BLOOD CELL COUNT(AUTO) 3.51 MIL/uL (4.00-5.50); RED CELL DISTRIBUTION WIDTH 15.3 % (11.0-15.5); WHITE BLOOD COUNT (AUTO) 25.8 K/uL (4.8-10.8)
[2020-02-16] MEDS: INSULIN LISPRO 100 UNIT/ML 3ML SQ SCH ×7 (05:52→20:36)
[2020-02-16 07:00] VITALS: BP 131/86
[2020-02-16] MEDS: FAMOTIDINE/PF 20 MG/2 ML VIAL IV SCH (08:21)
[2020-02-16] MEDS: AMLODIPINE BESYLATE 5 MG TAB PO SCH (09:00)
[2020-02-16] MEDS: LOSARTAN 100 MG TABLET PO SCH (09:00)
[2020-02-16 11:00] VITALS: BP 148/81
[2020-02-16] MEDS: ZOSYN 3.375GM+NS 50ML 50 ML IV SCH ×2 (11:16→22:21)
[2020-02-16] MEDS: LOPERAMIDE HCL 2 MG CAP PO PRN (11:33)
[2020-02-16] MEDS ORDERED: DEXTROSE 50%-WATER 50 ML DISP.SYRIN IV ONE (13:31)
[2020-02-16] MEDS ORDERED: DEXTROSE 50%-WATER 50 ML DISP.SYRIN IV SCH (13:45)
--- NOTE | 2020-02-16 14:54 | NUR ---
C/O VAGINAL SPOTTING PATIENT STATED THAT SHE IS VAGINALLY SPOTTING AND SHE BELIEVES IT IS THE RESULT BEING ON THE HEPARIN DRIP. PATIENT SAYS THAT SHE WILL LET ME KNOW IF THE BLEEDING WORSENS. PAGED DR SERVIN TO INFORM.
--- NOTE | 2020-02-16 15:23 | NUR ---
NUTRITION EDUCATION RD provided Diabetes, Renal Dialysis Nutrition education. Pt denies need for education. PAVAN reviewed reference materials with Pt. Pt verbalized understanding. Addendum: 02/16/20 at [address] Amended: Links added.
--- NOTE | 2020-02-16 15:35 | NUR ---
RD NOTIFICATION Pt admitted with DKA, Sepsis, CAP. Pt tolerating Renal Dialysis, 75gm CCD with no report of GI distress, Good PO intake. Altered renal labs. BMI 28.8, overweight classification. Recommend continue current diet order. PAVAN provided nutrition education. Please notify as additional nutrition concerns arise. Thank you. Addendum: 02/16/20 at [address] Amended: Links added.
[2020-02-16 16:00] VITALS: BP 128/78
--- NOTE | 2020-02-16 16:34 | NUR ---
1630 gave pt [facility] Letter.
[2020-02-16 19:30] VITALS: BP 144/78
[2020-02-16] MEDS: INSULIN GLARGINE 100 UNITS/ML 10 ML VIAL SQ SCH (20:42)
[2020-02-16] MEDS: METOPROLOL TARTRATE 50 MG TAB PO SCH (21:20)
--- NOTE | 2020-02-16 21:30 | NUR ---
REPORT REPORT RECEIVED FROM JEFFERY SOLANO. TOOK OVER CARE OF PT.
[2020-02-16] MEDS: VANCOMYCIN 1.25 GM in SODIUM CHLORIDE 0.9% 250 ML IV SCH (22:21)
--- NOTE | 2020-02-16 22:21 | NUR ---
MEDS RE-ASSESSED PT'S PAIN. PT VERBALIZES THAT PAIN HAD SUBSIDED. CHECKED PICC LINE PORTS FOR PATENCY. ALL 3 PORTS FLUSHES WELL WITH GOOD BLOOD RETURN. CONTINUED HEPARIN DRIP. DUE IV ANTIBIOTICS ADMINISTERED. KEPT RESTED AND COMFORTALBE IN BED. CALL LIGHT WITHIN REACH.
[2020-02-17] VITALS (7 sets, daily range): BP systolic 105–143; BP diastolic 54–79
[2020-02-17] MEDS: MORPHINE SULFATE 2 MG/ML 1ML SYG IV PRN ×3 (02:29→20:48)
--- NOTE | 2020-02-17 02:30 | NUR ---
PAIN PT JUST USED THE RESTROOM AND HAD A BM. CLAIMS OF GENERALIZED PAIN. MEDICATED WITH MORPHINE IV. RE-ITERATED FALL PRECAUTIONS. PT VERBALIZES UNDERSTANDING. WILL RE-ASSESS PT. CALL LIGHT WITHIN REACH.
[2020-02-17] MEDS: HEPARIN 25000 UNITS/250 ML D5W 250 ML IV SCH (04:47)
[2020-02-17 05:38] LABS: POTASSIUM 4.7 mmol/L (3.5-5.1)
[2020-02-17 05:53] LABS: BASOPHILS % (AUTO) 0.6 % (0.0-5.0); EOSINOPHILS % (AUTO) 2.7 % (0.0-8.0); HEMATOCRIT 28.3 % (36-48); LYMPHOCYTES % (AUTO) 9.3 % (21.0-51.0); MEAN CORPUSCULAR HEMOGLOBIN 27.7 pg (27.0-33.0); MEAN CORPUSCULAR HGB CONC 31.1 g/dL (32.0-36.0); MONOCYTES % (AUTO) 7.4 % (3.0-13.0); NEUTROPHILS % (AUTO) 76.3 % (40.0-77.0); PLATELET COUNT (AUTO) 466 K/uL (130-400); RED BLOOD CELL COUNT(AUTO) 3.18 MIL/uL (4.00-5.50); RED CELL DISTRIBUTION WIDTH 15.6 % (11.0-15.5); WHITE BLOOD COUNT (AUTO) 25.1 K/uL (4.8-10.8)
--- NOTE | 2020-02-17 06:00 | NUR ---
HEPARIN PT'S PTT RE-CHECK=39.6, ADJUSTED DRIP PER PROTOCOL,INCREASED TO 25 UNITS/KG/HR. WITNESSED BY JANNETTE GIL. PT DENIES ANY CONCERNS AT THIS TIME. FOR MORE CARE.
[2020-02-17] MEDS: INSULIN LISPRO 100 UNIT/ML 3ML SQ SCH ×7 (06:47→21:02)
[2020-02-17] MEDS: LOSARTAN 100 MG TABLET PO SCH (08:35)
[2020-02-17] MEDS: FAMOTIDINE/PF 20 MG/2 ML VIAL IV SCH (08:35)
[2020-02-17] MEDS: LEVOFLOXACIN 250 MG/D5W 50ML 50 ML IVPB SCH (08:35)
[2020-02-17] MEDS: AMLODIPINE BESYLATE 5 MG TAB PO SCH (08:35)
[2020-02-17] MEDS: LOPERAMIDE HCL 2 MG CAP PO PRN (10:48)
[2020-02-17] MEDS: ZOSYN 3.375GM+NS 50ML 50 ML IV SCH ×2 (10:48→23:00)
[2020-02-17] MEDS: ENOXAPARIN SODIUM 80 MG/0.8 ML SQ SCH (14:52)
[2020-02-17] MEDS: WARFARIN SODIUM 5 MG TAB PO SCH (16:45)
[2020-02-17] MEDS: METOPROLOL TARTRATE 50 MG TAB PO SCH (19:02)
[2020-02-17] MEDS: INSULIN GLARGINE 100 UNITS/ML 10 ML VIAL SQ SCH (21:00)
[2020-02-18] VITALS (7 sets, daily range): BP systolic 123–151; BP diastolic 60–84
[2020-02-18] MEDS: MORPHINE SULFATE 2 MG/ML 1ML SYG IV PRN ×2 (01:29→11:01)
[2020-02-18 04:56] LABS: BASOPHILS % (AUTO) 0.6 % (0.0-5.0); EOSINOPHILS % (AUTO) 2.9 % (0.0-8.0); HEMATOCRIT 28.5 % (36-48); LYMPHOCYTES % (AUTO) 8.3 % (21.0-51.0); MEAN CORPUSCULAR HEMOGLOBIN 27.4 pg (27.0-33.0); MEAN CORPUSCULAR HGB CONC 31.2 g/dL (32.0-36.0); MEAN CORPUSCULAR VOLUME 87.7 fL (79-99); MONOCYTES % (AUTO) 6.4 % (3.0-13.0); NEUTROPHILS % (AUTO) 79.1 % (40.0-77.0); PLATELET COUNT (AUTO) 565 K/uL (130-400); RED BLOOD CELL COUNT(AUTO) 3.25 MIL/uL (4.00-5.50); RED CELL DISTRIBUTION WIDTH 15.2 % (11.0-15.5); WHITE BLOOD COUNT (AUTO) 22.2 K/uL (4.8-10.8)
[2020-02-18 05:15] LABS: CREATININE 7.8 mg/dL (0.5-1.5); PHOSPHORUS 8.1 mg/dL (2.5-4.9); POTASSIUM 4.7 mmol/L (3.5-5.1)
[2020-02-18 05:22] LABS: INR 1.05 (0.85-1.15); PARTIAL THROMBOPLASTIN TIME 33.1 SEC (26.3-35.5); PROTHROMBIN TIME 11.3 SEC (9.6-11.6)
[2020-02-18] MEDS: INSULIN LISPRO 100 UNIT/ML 3ML SQ SCH ×7 (07:00→21:00)
[2020-02-18] MEDS: LOSARTAN 100 MG TABLET PO SCH (08:51)
[2020-02-18] MEDS: FAMOTIDINE/PF 20 MG/2 ML VIAL IV SCH (08:51)
[2020-02-18] MEDS: AMLODIPINE BESYLATE 5 MG TAB PO SCH (08:51)
[2020-02-18] MEDS: ENOXAPARIN SODIUM 80 MG/0.8 ML SQ SCH (08:52)
[2020-02-18] MEDS: ZOSYN 3.375GM+NS 50ML 50 ML IV SCH ×2 (11:01→21:44)
[2020-02-18] MEDS: WARFARIN SODIUM 5 MG TAB PO SCH (21:13)
[2020-02-18] MEDS: METOPROLOL TARTRATE 50 MG TAB PO SCH (21:13)
[2020-02-18] MEDS: INSULIN GLARGINE 100 UNITS/ML 10 ML VIAL SQ SCH (21:16)
[2020-02-18] MEDS: VANCOMYCIN 1.25 GM in SODIUM CHLORIDE 0.9% 250 ML IV SCH (22:38)
--- NOTE | 2020-02-18 22:38 | NUR ---
VANCOMYCIN Pt just completed hemodialysis today, vanco level drawn and it's 19.8. Pharmacy called to bring a Vanco 1.25 gms bag to be given tonight but medication wasn't delivered, dose for tonight missed.
[2020-02-19] VITALS (7 sets, daily range): BP systolic 128–148; BP diastolic 65–76
[2020-02-19] MEDS: MORPHINE SULFATE 2 MG/ML 1ML SYG IVP PRN ×3 (00:07→21:16)
[2020-02-19] MEDS: INSULIN LISPRO 100 UNIT/ML 3ML SQ SCH ×7 (06:22→21:10)
[2020-02-19 06:25] LABS: HEMATOCRIT 27.8 % (36-48); MEAN CORPUSCULAR HEMOGLOBIN 27.6 pg (27.0-33.0); MEAN CORPUSCULAR HGB CONC 30.9 g/dL (32.0-36.0); MEAN CORPUSCULAR VOLUME 89.1 fL (79-99); PLATELET COUNT (AUTO) 587 K/uL (130-400); RED BLOOD CELL COUNT(AUTO) 3.12 MIL/uL (4.00-5.50); RED CELL DISTRIBUTION WIDTH 15.2 % (11.0-15.5); WHITE BLOOD COUNT (AUTO) 18.1 K/uL (4.8-10.8)
[2020-02-19 06:34] LABS: CREATININE 6.2 mg/dL (0.5-1.5); POTASSIUM 4.6 mmol/L (3.5-5.1)
[2020-02-19 06:43] LABS: INR 1.09 (0.85-1.15); PROTHROMBIN TIME 11.7 SEC (9.6-11.6)
[2020-02-19 07:38] LABS: BAND NEUTROPHILS % (MANUAL) 1 % (0-2); EOSINOPHILS % (MANUAL) 4 % (1-6); LYMPHOCYTES % (MANUAL) 13 % (22-44); MAN.DIFF COMMENT-IMPRESSION MANUAL DIFFERENTIAL; METAMYELOCYTES % 1 % (0-0); MONOCYTES % (MANUAL) 4 % (2-9); MYELOCYTES % 2 % (0-0); SEGMENTED NEUTROPHILS % 75 % (40-70)
[2020-02-19 07:39] LABS: PLATELET MORPHOLOGY COMMENT INCREASED
[2020-02-19] MEDS ORDERED: DEXTROSE 50%-WATER 50 ML DISP.SYRIN IV PRN (08:30)
[2020-02-19] MEDS ORDERED: GLUCAGON 1MG KIT 1 MG ML IM PRN (08:30)
[2020-02-19] MEDS: AMLODIPINE BESYLATE 5 MG TAB PO SCH (10:48)
[2020-02-19] MEDS: LOSARTAN 100 MG TABLET PO SCH (10:48)
[2020-02-19] MEDS: ZOSYN 3.375GM+NS 50ML 50 ML IV SCH ×2 (10:48→21:12)
[2020-02-19] MEDS: LEVOFLOXACIN 250 MG/D5W 50ML 50 ML IVPB SCH (10:48)
[2020-02-19] MEDS: FAMOTIDINE/PF 20 MG/2 ML VIAL IV SCH (10:48)
[2020-02-19] MEDS: INSULIN HUMULIN R 100 UNIT/ML 3ML SQ SCH ×3 (10:49→21:00)
--- NOTE | 2020-02-19 16:04 | NUR ---
NUTRITION EDUCATION Pt with Coumadin medication in place. PAVAN provided Coumadin Nutrition Education. Pt denies need for education. Refusal of nutrition handout. Addendum: 02/19/20 at [address] Amended: Links added.
[2020-02-19] MEDS: METOPROLOL TARTRATE 50 MG TAB PO SCH (17:24)
[2020-02-19] MEDS: INSULIN GLARGINE 100 UNITS/ML 10 ML VIAL SQ SCH (21:09)
[2020-02-20] VITALS (24 sets, daily range): BP systolic 123–160; BP diastolic 63–84
[2020-02-20 04:12] LABS: BASOPHILS % (AUTO) 0.7 % (0.0-5.0); EOSINOPHILS % (AUTO) 3.7 % (0.0-8.0); HEMATOCRIT 28.1 % (36-48); LYMPHOCYTES % (AUTO) 9.8 % (21.0-51.0); MEAN CORPUSCULAR HEMOGLOBIN 26.8 pg (27.0-33.0); MEAN CORPUSCULAR HGB CONC 30.2 g/dL (32.0-36.0); MEAN CORPUSCULAR VOLUME 88.6 fL (79-99); MONOCYTES % (AUTO) 9.2 % (3.0-13.0); NEUTROPHILS % (AUTO) 75.1 % (40.0-77.0); PLATELET COUNT (AUTO) 688 K/uL (130-400); RED BLOOD CELL COUNT(AUTO) 3.17 MIL/uL (4.00-5.50); WHITE BLOOD COUNT (AUTO) 19.1 K/uL (4.8-10.8)
[2020-02-20 04:41] LABS: CREATININE 7.5 mg/dL (0.5-1.5)
[2020-02-20 04:47] LABS: INR 1.2 (0.85-1.15); PARTIAL THROMBOPLASTIN TIME 32.4 SEC (26.3-35.5); PROTHROMBIN TIME 12.9 SEC (9.6-11.6)
[2020-02-20 05:45] LABS: ERYTHROCYTE SEDIMENTATION RATE 132 MM/HR (0-20)
[2020-02-20] MEDS: INSULIN LISPRO 100 UNIT/ML 3ML SQ SCH ×7 (06:01→21:45)
[2020-02-20] MEDS: INSULIN HUMULIN R 100 UNIT/ML 3ML SQ SCH ×4 (06:01→21:45)
--- NOTE | 2020-02-20 06:53 | NUR ---
Taken out from the room at this time for the procedure. (AV graft removal)
[2020-02-20] MEDS ORDERED: SODIUM CHLORIDE 0.9% 1000ML 1,000 ML IV ONE (06:58)
[2020-02-20] MEDS ORDERED: CEFAZOLIN SODIUM 1 GM VIAL IVP PRN (07:00)
--- NOTE | 2020-02-20 07:18 | NUR ---
GLUCOMETER: MAMADOU MAYES CRNA, MA DE AWARE OF GLUCOMETER RESULT OF 292 ON 02/20/20 @ 0500, NOT COVERED WITH INSULIN DUE TO GLUCOSE DROPPING RAPIDLY WITH EVEN JUST 2 UNITS OF INSULIN VOICED PER PATIENTS NURSE, NO ORDERS GIVEN.
[2020-02-20] MEDS ORDERED: DEXAMETHASONE SOD PHOSPHATE 10MG/ML 1ML VIAL ONE (07:26)
[2020-02-20] MEDS ORDERED: FENTANYL CITRATE PF 50 MCG/1 ML 2ML VIAL ONE (07:26)
[2020-02-20] MEDS ORDERED: ONDANSETRON HCL 4 MG/2 ML VIAL ONE (07:26)
[2020-02-20] MEDS ORDERED: LIDOCAINE PF 2% 5ML ABBOJECT ONE (07:26)
[2020-02-20] MEDS ORDERED: PROPOFOL 10 MG/ML 20ML VIAL IV ONE (07:26)
[2020-02-20] MEDS ORDERED: MIDAZOLAM HCL 1 MG/ML 2ML VIAL ONE (07:27)
[2020-02-20] MEDS ORDERED: ROCURONIUM 10MG/1ML SYR 10 MG/ML ML ONE (07:27)
[2020-02-20] MEDS ORDERED: TRAMADOL HCL 50 MG TABLET PO PRN (08:30)
[2020-02-20] MEDS ORDERED: BACITRACIN 28.4 GM OINT TP ONE (08:33)
[2020-02-20] MEDS ORDERED: GLYCOPYRROLATE 1 MG/5 ML SYRINGE ONE (08:43)
[2020-02-20] MEDS ORDERED: NEOSTIGMINE 5MG/5ML SYR IV ONE (08:43)
[2020-02-20] MEDS ORDERED: ALBUTEROL INHALER 90MCG/INH IH ONE ×2 (08:58)
[2020-02-20] MEDS ORDERED: MEPERIDINE-PF 25 MG/ML SYG ONE (09:24)
[2020-02-20] MEDS: MEPERIDINE-PF 25 MG/ML SYG IV SCH ×2 (09:45→11:20)
--- NOTE | 2020-02-20 09:59 | NUR ---
patient was out for procedure.Will ask weekender Physical therapist to see patient 02/21/2020. Addendum: 02/20/20 at 1000 by DIANA GUSMAN, PT PT Amended: Links added.
[2020-02-20] MEDS: FAMOTIDINE/PF 20 MG/2 ML VIAL IV SCH (11:02)
[2020-02-20] MEDS: AMLODIPINE BESYLATE 5 MG TAB PO SCH (11:03)
[2020-02-20] MEDS: LOSARTAN 100 MG TABLET PO SCH (11:03)
[2020-02-20] MEDS: ZOSYN 3.375GM+NS 50ML 50 ML IV SCH ×2 (11:04→21:59)
[2020-02-20] MEDS ORDERED: HEPARIN SODIUM 5000UNIT/ML 1ML VIAL ONE (15:30)
[2020-02-20] MEDS: CEFAZOLIN SODIUM 1 GM VIAL IVP SCH (15:50)
[2020-02-20] MEDS: METOPROLOL TARTRATE 50 MG TAB PO SCH (18:04)
[2020-02-20] MEDS: MORPHINE SULFATE 2 MG/ML 1ML SYG IVP PRN (18:06)
[2020-02-20] MEDS ORDERED: WARFARIN SODIUM 5 MG TAB PO SCH (18:30)
[2020-02-20] MEDS ORDERED: ENOXAPARIN SODIUM 80 MG/0.8 ML SQ SCH (18:30)
[2020-02-20] MEDS: INSULIN GLARGINE 100 UNITS/ML 10 ML VIAL SQ SCH (21:45)
[2020-02-20] MEDS: TRAMADOL HCL 50 MG TABLET PO PRN (21:59)
--- NOTE | 2020-02-20 22:25 | NUR ---
PAGED HOSPITALIST SUPERINTENDENT DRILLING AND PRODUCTION FOR CATHFLO DUE TO PICC LINE BEING OCCLUDED TO ALL PORTS. STOPPED ZOSYN UNTIL PROPER PERIPHERAL ACCESS.
--- NOTE | 2020-02-20 22:49 | NUR ---
NEW ORDER FOR CATHFLO FOR PICC LINE.
--- NOTE | 2020-02-20 22:50 | NUR ---
GEORGI CAMARILLO, DECIDED NOT TO ADMINISTER CATHFLO. TO HAVE PICC LINE DC'D. AND NEW ONE STARTED TOMORROW.
[2020-02-21] MEDS: MORPHINE SULFATE 2 MG/ML 1ML SYG IVP PRN ×4 (01:00→23:45)
--- NOTE | 2020-02-21 01:20 | NUR ---
NEW 24G TO RIGHT UPPER ARM STARTED.
[2020-02-21 04:00] VITALS: BP 127/83
[2020-02-21 05:01] LABS: BASOPHILS % (AUTO) 0.7 % (0.0-5.0); EOSINOPHILS % (AUTO) 3.4 % (0.0-8.0); LYMPHOCYTES % (AUTO) 11.7 % (21.0-51.0); MEAN CORPUSCULAR HEMOGLOBIN 27.6 pg (27.0-33.0); MONOCYTES % (AUTO) 10.3 % (3.0-13.0); RED BLOOD CELL COUNT(AUTO) 3.26 MIL/uL (4.00-5.50); RED CELL DISTRIBUTION WIDTH 14.8 % (11.0-15.5); WHITE BLOOD COUNT (AUTO) 17.5 K/uL (4.8-10.8)
[2020-02-21 05:14] LABS: INR 1.33 (0.85-1.15); PARTIAL THROMBOPLASTIN TIME 36.4 SEC (26.3-35.5); PROTHROMBIN TIME 14.2 SEC (9.6-11.6)
[2020-02-21 05:19] LABS: CREATININE 5.5 mg/dL (0.5-1.5)
[2020-02-21 05:37] LABS: PLATELET COUNT (AUTO) 713 K/uL (130-400)
[2020-02-21] MEDS: INSULIN HUMULIN R 100 UNIT/ML 3ML SQ SCH ×2 (05:44→11:30)
[2020-02-21] MEDS: INSULIN LISPRO 100 UNIT/ML 3ML SQ SCH ×7 (05:44→23:46)
[2020-02-21] MEDS: FAMOTIDINE/PF 20 MG/2 ML VIAL IV SCH (08:10)
[2020-02-21 08:18] VITALS: BP 155/81
[2020-02-21] MEDS ORDERED: ENOXAPARIN SODIUM 80 MG/0.8 ML SQ SCH (09:00)
[2020-02-21] MEDS: LEVOFLOXACIN 250 MG/D5W 50ML 50 ML IVPB SCH (09:32)
[2020-02-21] MEDS: LOSARTAN 100 MG TABLET PO SCH (09:33)
[2020-02-21] MEDS: AMLODIPINE BESYLATE 5 MG TAB PO SCH (09:34)
[2020-02-21 12:04] VITALS: BP 131/67
[2020-02-21 15:47] VITALS: BP 120/63
[2020-02-21] MEDS: WARFARIN SODIUM 5 MG TAB PO SCH (17:07)
[2020-02-21] MEDS: METOPROLOL TARTRATE 50 MG TAB PO SCH (17:07)
[2020-02-21 20:35] VITALS: BP 120/65
[2020-02-21] MEDS: INSULIN GLARGINE 100 UNITS/ML 10 ML VIAL SQ SCH (21:00)
[2020-02-21] MEDS ORDERED: CEFAZOLIN SODIUM 1 GM VIAL ONE ×2 (21:38→21:45)
[2020-02-21] MEDS: CEFAZOLIN SODIUM 1 GM VIAL IVP SCH ×2 (21:58)
[2020-02-22] VITALS (7 sets, daily range): BP systolic 118–143; BP diastolic 62–80
[2020-02-22] MEDS: INSULIN LISPRO 100 UNIT/ML 3ML SQ SCH ×7 (06:34→22:25)
[2020-02-22] MEDS: LOSARTAN 100 MG TABLET PO SCH (08:30)
[2020-02-22] MEDS: AMLODIPINE BESYLATE 5 MG TAB PO SCH (08:30)
[2020-02-22] MEDS: FAMOTIDINE/PF 20 MG/2 ML VIAL IV SCH (08:30)
[2020-02-22] MEDS: ENOXAPARIN SODIUM 60 MG/0.6 ML SQ SCH (08:31)
[2020-02-22] MEDS: MORPHINE SULFATE 2 MG/ML 1ML SYG IVP PRN ×3 (08:32→22:11)
--- NOTE | 2020-02-22 16:00 | NUR ---
cm note discussed [facility] with pt, states she does not wish to go to [facility], wants to do as OP IV due to needs to see her children. will followup with md. updated primary nurse.
[2020-02-22] MEDS: WARFARIN SODIUM 5 MG TAB PO SCH (17:13)
[2020-02-22] MEDS: METOPROLOL TARTRATE 50 MG TAB PO SCH (18:19)
[2020-02-22] MEDS ORDERED: ALTEPLASE 2 MG/VIAL IVCATH ONE ×3 (20:30)
[2020-02-22] MEDS: TRAMADOL HCL 50 MG TABLET PO PRN (22:17)
--- NOTE | 2020-02-22 22:20 | NUR ---
PT EXPERIENCING SEVERE PAIN TO LEFT GROIN SITE. STATES IT FEELS LIKE CRAMPING SENSATION. WAS GIVEN MORPHINE PRN AND TRAMADOL. PICC LINE IS NOW WORKING.
[2020-02-22] MEDS: INSULIN GLARGINE 100 UNITS/ML 10 ML VIAL SQ SCH (22:27)
--- NOTE | 2020-02-22 22:45 | NUR ---
SPOKE TO DR. BAEZ REGARDING PTS LEFT GROIN PAIN. TOLD THAT SHE WAS GIVEN MORPHINE AND TRAMADOL. ORDERED TO CONTINUE TO COVER WITH PAIN MEDICATIONS. AND ORDERED FOR MORPHINE X1 DOSE IF NECESSARY FOR PAIN SHE WAS RECEIVING. 2MG.
[2020-02-23 03:49] VITALS: BP 120/65
[2020-02-23 04:47] LABS: HEMATOCRIT 26.4 % (36-48); MEAN CORPUSCULAR HEMOGLOBIN 27.6 pg (27.0-33.0); MEAN CORPUSCULAR HGB CONC 31.4 g/dL (32.0-36.0); MEAN CORPUSCULAR VOLUME 87.7 fL (79-99); PLATELET COUNT (AUTO) 667 K/uL (130-400); RED BLOOD CELL COUNT(AUTO) 3.01 MIL/uL (4.00-5.50); RED CELL DISTRIBUTION WIDTH 14.8 % (11.0-15.5); WHITE BLOOD COUNT (AUTO) 15.7 K/uL (4.8-10.8)
[2020-02-23 04:58] LABS: PHOSPHORUS 9.8 mg/dL (2.5-4.9); POTASSIUM 4.8 mmol/L (3.5-5.1)
[2020-02-23] MEDS: INSULIN LISPRO 100 UNIT/ML 3ML SQ SCH ×7 (05:29→21:10)
[2020-02-23 05:46] LABS: CREATININE 8.7 mg/dL (0.5-1.5)
[2020-02-23 06:25] LABS: BAND NEUTROPHILS % (MANUAL) 1 % (0-2); EOSINOPHILS % (MANUAL) 6 % (1-6); LYMPHOCYTES % (MANUAL) 6 % (22-44); MAN.DIFF COMMENT-IMPRESSION MANUAL DIFFERENTIAL; MONOCYTES % (MANUAL) 4 % (2-9); PLATELET MORPHOLOGY COMMENT INCREASED; REACTIVE LYMPHOCYTES 1 % (0-0); SEGMENTED NEUTROPHILS % 82 % (40-70)
[2020-02-23] MEDS: LOPERAMIDE HCL 2 MG CAP PO PRN (06:56)
[2020-02-23 07:37] VITALS: BP 123/64
[2020-02-23] MEDS: LOSARTAN 100 MG TABLET PO SCH (09:00)
[2020-02-23] MEDS: AMLODIPINE BESYLATE 5 MG TAB PO SCH (09:00)
[2020-02-23] MEDS: FAMOTIDINE/PF 20 MG/2 ML VIAL IV SCH ×2 (09:00→12:34)
[2020-02-23 11:30] VITALS: BP 125/64
[2020-02-23] MEDS ORDERED: VANCOMYCIN PROTOCOL PER PHARMACY IV SCH (12:30)
[2020-02-23] MEDS: ENOXAPARIN SODIUM 60 MG/0.6 ML SQ SCH (12:35)
--- NOTE | 2020-02-23 12:36 | NUR ---
CM NOTE/DCP DECLINED MEET WITH PATIENT REGARDING REFERRAL FOR [facility] . PER PATIENT, DOES NOT WANT TO GO BECAUSE SHE HAS DIALYSIS CENTER TO GO TO WELL HER KIDS TO LOOK AFTER. PATIENT INFORMED THAT ANTIBIOTICS CANNOT BE GIVEN AT DIALYSIS SINCE SHE IS ON THREE AND REQUIRES ALL THREE PER INFECTION DISEASE MD. PATIENT INFORMED THAT DIALYSIS WILL BE GIVEN IN HOUSE AT [facility]. PER PATIENT DOES NOT WANT TO GO SINCE SHE NEEDS TO LOOK AFTER HER CHILDREN. PATIENT INFORMED THAT ANTIBIOTICS WILL NOT BE ABLE TO BE DONE AT HOME SINCE HOME HEALTH IS NOT ABLE TO VISIT MULTIPLE TIMES A DAY. PATIENT DECLINING [facility]. NURSE, MAGDALENO GIL, MADE AWARE. DR. RUTLEDGE AT NURSES STATION, MADE AWARE.
[2020-02-23] MEDS: TRAMADOL HCL 50 MG TABLET PO PRN (12:39)
[2020-02-23] MEDS: LEVOFLOXACIN 500 MG/D5W 100 ML 100 ML IV SCH (13:10)
[2020-02-23] MEDS ORDERED: VANCOMYCIN 1.25 GM in SODIUM CHLORIDE 0.9% 250 ML IV SCH (14:00)
[2020-02-23 16:18] VITALS: BP 130/69
--- NOTE | 2020-02-23 16:50 | NUR ---
SITTING IN CHAIR AT BEDSIDE EATING DINNER. CALL LIGHT WITHIN REACH.
[2020-02-23] MEDS: METOPROLOL TARTRATE 50 MG TAB PO SCH (17:08)
[2020-02-23] MEDS: WARFARIN SODIUM 5 MG TAB PO SCH (17:09)
[2020-02-23] MEDS: MORPHINE SULFATE 2 MG/ML 1ML SYG IVP PRN (17:35)
[2020-02-23] MEDS: ZOSYN 3.375GM+NS 50ML 50 ML IV SCH (17:35)
[2020-02-23 19:00] VITALS: BP 125/73
[2020-02-23] MEDS: INSULIN GLARGINE 100 UNITS/ML 10 ML VIAL SQ SCH (21:10)
[2020-02-23 23:00] VITALS: BP 111/65
[2020-02-24] MEDS: MORPHINE SULFATE 2 MG/ML 1ML SYG IVP PRN ×3 (00:20→19:44)
--- NOTE | 2020-02-24 00:30 | NUR ---
ROUNDS PATIENT AWAKE AND ALERT IN BED WATCHING TV AT THIS TIME. MEDICATED PER MARS FOR COMPLAINTS OF INCISIONAL PAIN. RESP EVEN AND UNLABORED. NO SOB NOTED. ON ROOM AIR. VITALS STABLE. AFEBRILE. TOLERATING PO DIET WELL. NO NAUSEA OR VOMITING NOTED. NO SIGNS OR SYMPTOMS OF HYPO/HYPERGLYCEMIA NOTED. HOB ELEVATED. CALL LIGHT WITHIN REACH. WILL CONTINUE TO BE OBSERVED. Addendum: 02/24/20 at 0521 by SANJAY LOUISE RN RN Amended: Links added.
[2020-02-24 03:00] VITALS: BP 129/74
[2020-02-24 03:41] LABS: CREATININE 5.5 mg/dL (0.5-1.5)
[2020-02-24 03:42] LABS: HEMATOCRIT 27.7 % (36-48); MEAN CORPUSCULAR HEMOGLOBIN 27.2 pg (27.0-33.0); MEAN CORPUSCULAR HGB CONC 30.7 g/dL (32.0-36.0); MEAN CORPUSCULAR VOLUME 88.8 fL (79-99); PLATELET COUNT (AUTO) 668 K/uL (130-400); RED BLOOD CELL COUNT(AUTO) 3.12 MIL/uL (4.00-5.50); RED CELL DISTRIBUTION WIDTH 15.1 % (11.0-15.5); WHITE BLOOD COUNT (AUTO) 13.4 K/uL (4.8-10.8)
[2020-02-24] MEDS: ZOSYN 3.375GM+NS 50ML 50 ML IV SCH ×2 (04:37→16:46)
[2020-02-24 05:15] LABS: BAND NEUTROPHILS % (MANUAL) 2 % (0-2); BASOPHILS % (MANUAL) 2 % (0-2); EOSINOPHILS % (MANUAL) 6 % (1-6); LYMPHOCYTES % (MANUAL) 16 % (22-44); MAN.DIFF COMMENT-IMPRESSION MANUAL DIFFERENTIAL; MONOCYTES % (MANUAL) 6 % (2-9); REACTIVE LYMPHOCYTES 3 % (0-0); SEGMENTED NEUTROPHILS % 65 % (40-70)
[2020-02-24 05:16] LABS: PLATELET MORPHOLOGY COMMENT INCREASED
[2020-02-24] MEDS: INSULIN LISPRO 100 UNIT/ML 3ML SQ SCH ×8 (07:01→21:20)
[2020-02-24 08:05] VITALS: BP 141/76
[2020-02-24] MEDS: FAMOTIDINE/PF 20 MG/2 ML VIAL IV SCH (08:58)
[2020-02-24] MEDS: AMLODIPINE BESYLATE 5 MG TAB PO SCH (08:58)
[2020-02-24] MEDS: LOSARTAN 100 MG TABLET PO SCH (08:58)
[2020-02-24] MEDS: ENOXAPARIN SODIUM 60 MG/0.6 ML SQ SCH (09:00)
[2020-02-24] MEDS: LOPERAMIDE HCL 2 MG CAP PO PRN (09:12)
[2020-02-24 09:46] LABS: PROTHROMBIN TIME > 63.0 SEC (9.6-11.6)
[2020-02-24 09:48] LABS: INR 6.75 (0.85-1.15)
[2020-02-24 11:35] VITALS: BP 130/69
[2020-02-24] MEDS: TRAMADOL HCL 50 MG TABLET PO PRN (11:47)
--- NOTE | 2020-02-24 12:52 | NUR ---
DR. Latha ALBRIGHT IN ROOM SPEAKING WITH PT.
--- NOTE | 2020-02-24 15:30 | NUR ---
CM NOTE/[facility] REFERRAL MEET WITH PATIENT IN ROOM. PER PATIENT, AGREEABLE TO [facility], [facility] COMPLETED. CLINICAL PACKET ALONG WITH INQUIRY, COVID ASSESSMENT FAXED AND CONFIRMED RECEIVED. ISAEL FROM [facility] MADE AWARE OF REFERRAL, PENDING REVIEW AND APPROVAL. CM TO FOLLOW UP. MOT AND EMS FORM PENDING DATE AND FLAGGED IN PATIENTS CHART.
[2020-02-24] MEDS: METOPROLOL TARTRATE 50 MG TAB PO SCH (17:00)
[2020-02-24 17:06] VITALS: BP 124/65
[2020-02-24 20:11] VITALS: BP 130/64
[2020-02-24] MEDS: INSULIN GLARGINE 100 UNITS/ML 10 ML VIAL SQ SCH (21:20)
[2020-02-25 00:03] VITALS: BP 121/73
[2020-02-25] MEDS: MORPHINE SULFATE 2 MG/ML 1ML SYG IVP PRN ×3 (03:18→15:56)
[2020-02-25 04:01] VITALS: BP 133/71
[2020-02-25] MEDS: ZOSYN 3.375GM+NS 50ML 50 ML IV SCH (05:14)
[2020-02-25 05:58] LABS: HEMATOCRIT 26.8 % (36-48); MEAN CORPUSCULAR HEMOGLOBIN 27.2 pg (27.0-33.0); MEAN CORPUSCULAR HGB CONC 30.6 g/dL (32.0-36.0); MEAN CORPUSCULAR VOLUME 88.7 fL (79-99); RED BLOOD CELL COUNT(AUTO) 3.02 MIL/uL (4.00-5.50); RED CELL DISTRIBUTION WIDTH 15.3 % (11.0-15.5); WHITE BLOOD COUNT (AUTO) 13.1 K/uL (4.8-10.8)
[2020-02-25 06:05] LABS: PARTIAL THROMBOPLASTIN TIME 58.7 SEC (26.3-35.5)
[2020-02-25 06:17] LABS: CREATININE 7.3 mg/dL (0.5-1.5); POTASSIUM 5.2 mmol/L (3.5-5.1)
[2020-02-25 06:26] LABS: INR 6.31 (0.85-1.15); PROTHROMBIN TIME > 63.0 SEC (9.6-11.6)
[2020-02-25] MEDS: INSULIN LISPRO 100 UNIT/ML 3ML SQ SCH ×5 (06:43→16:30)
[2020-02-25 08:00] VITALS: BP 142/78
[2020-02-25] MEDS: LOPERAMIDE HCL 2 MG CAP PO PRN (10:20)
[2020-02-25] MEDS: FAMOTIDINE/PF 20 MG/2 ML VIAL IV SCH (10:20)
[2020-02-25 12:00] VITALS: BP 153/79
[2020-02-25] MEDS ORDERED: HEPARIN SODIUM 5000UNIT/ML 1ML VIAL ONE (13:57)
--- NOTE | 2020-02-25 14:58 | NUR ---
CM NOTE/[facility] APPROVED PER ISAEL AT [facility], [facility] APPROVED. MOT FILLED OUT, FLAGGED IN CHART, HOUSESUPERVISOR AWARE OF PENDING SIGNATURE, EMS FAXED, MED REC FAXED TO [facility]. TRENTON GIL, PRIMARY NURSE, AWARE OF [facility] ACCEPTANCE, DC ORDER IN [facility] FROM [facility]. NURSE AWARE TO CALL CONSULTS FOR SIGN OFF. PATIENT CURRENTLY RECEIVING DIALYSIS TREATMENT, EMS TO BE CALLED AFTER DIALYSIS.
--- NOTE | 2020-02-25 15:17 | NUR ---
COUMADIN COUMADIN HELD , INR > 6, AWARE
[2020-02-25] MEDS: AMLODIPINE BESYLATE 5 MG TAB PO SCH (15:45)
[2020-02-25] MEDS: LOSARTAN 100 MG TABLET PO SCH (15:45)
[2020-02-25] MEDS: LEVOFLOXACIN 500 MG/D5W 100 ML 100 ML IV SCH (15:45)
[2020-02-25 16:00] VITALS: BP 147/89
[2020-02-25] MEDS ORDERED: WARFARIN SODIUM 2 MG TAB PO SCH (16:00)
== END 2020-02-25 21:20 | DRG 853 ==
LOC: EDH 10:31 → EDHIP 13:52 → 2CH 15:30 → 2BH 02-11 10:40 → 4AH 02-13 18:25
PROVIDERS: ADMIT Internal Medicine; ATTEND Internal Medicine
PROC: 5A1D70Z Performance of Urinary Filtration, Intermittent, Less than 6 Hours Per Day (ICD-10-PCS; principal; 2020-02-11)
PROC: 05HC33Z Insertion of Infusion Device into Left Basilic Vein, Percutaneous Approach (ICD-10-PCS; 2020-02-11)
PROC: 0JH63XZ Insertion of Tunneled Vascular Access Device into Chest Subcutaneous Tissue and Fascia, Percutaneous Approach (ICD-10-PCS; 2020-02-11)
PROC: 02H633Z Insertion of Infusion Device into Right Atrium, Percutaneous Approach (ICD-10-PCS; 2020-02-11)
PROC: 5A1D70Z Performance of Urinary Filtration, Intermittent, Less than 6 Hours Per Day (ICD-10-PCS; 2020-02-13)
PROC: 0B9G8ZX Drainage of Left Upper Lung Lobe, Via Natural or Artificial Opening Endoscopic, Diagnostic (ICD-10-PCS; 2020-02-13)
PROC: 5A1D70Z Performance of Urinary Filtration, Intermittent, Less than 6 Hours Per Day (ICD-10-PCS; 2020-02-16)
PROC: 5A1D70Z Performance of Urinary Filtration, Intermittent, Less than 6 Hours Per Day (ICD-10-PCS; 2020-02-18)
PROC: 5A1D70Z Performance of Urinary Filtration, Intermittent, Less than 6 Hours Per Day (ICD-10-PCS; 2020-02-20)
PROC: 0J9M0ZZ Drainage of Left Upper Leg Subcutaneous Tissue and Fascia, Open Approach (ICD-10-PCS; 2020-02-20 07:30)
PROC: 5A1D70Z Performance of Urinary Filtration, Intermittent, Less than 6 Hours Per Day (ICD-10-PCS; 2020-02-23)
PROC: 5A1D70Z Performance of Urinary Filtration, Intermittent, Less than 6 Hours Per Day (ICD-10-PCS; 2020-02-25)
PROC: 30233J1 Transfusion of Nonautologous Serum Albumin into Peripheral Vein, Percutaneous Approach (ICD-10-PCS; 2020-02-25)
DX: A41.9 Sepsis, unspecified organism (principal); J18.9 Pneumonia, unspecified organism; I26.99 Other pulmonary embolism without acute cor pulmonale; E10.10 Type 1 diabetes mellitus with ketoacidosis without coma; N18.6 End stage renal disease; J96.01 Acute respiratory failure with hypoxia; R65.21 Severe sepsis with septic shock; T82.7XXA Infection and inflammatory reaction due to other cardiac and vascular devices, implants and grafts, initial encounter; E87.1 Hypo-osmolality and hyponatremia; I12.0 Hypertensive chronic kidney disease with stage 5 chronic kidney disease or end stage renal disease; I82.812 Embolism and thrombosis of superficial veins of left lower extremity; J90 Pleural effusion, not elsewhere classified; L02.416 Cutaneous abscess of left lower limb; E10.22 Type 1 diabetes mellitus with diabetic chronic kidney disease; B96.89 Other specified bacterial agents as the cause of diseases classified elsewhere; D64.9 Anemia, unspecified; E10.319 Type 1 diabetes mellitus with unspecified diabetic retinopathy without macular edema; E10.43 Type 1 diabetes mellitus with diabetic autonomic (poly)neuropathy; E10.51 Type 1 diabetes mellitus with diabetic peripheral angiopathy without gangrene; E10.649 Type 1 diabetes mellitus with hypoglycemia without coma; E78.5 Hyperlipidemia, unspecified; E87.70 Fluid overload, unspecified; G47.00 Insomnia, unspecified; Y95 Nosocomial condition; K31.84 Gastroparesis; K59.00 Constipation, unspecified; R79.1 Abnormal coagulation profile; Z20.828 Contact with and (suspected) exposure to other viral communicable diseases; Y83.2 Surgical operation with anastomosis, bypass or graft as the cause of abnormal reaction of the patient, or of later complication, without mention of misadventure at the time of the procedure; Z89.422 Acquired absence of other left toe(s); Y92.89 Other specified places as the place of occurrence of the external cause; Z99.2 Dependence on renal dialysis; Z78.9 Other specified health status; Z79.01 Long term (current) use of anticoagulants; Z79.4 Long term (current) use of insulin; Z91.19 Patient's noncompliance with other medical treatment and regimen; Z86.711 Personal history of pulmonary embolism; Z82.3 Family history of stroke; Z82.0 Family history of epilepsy and other diseases of the nervous system; Z82.41 Family history of sudden cardiac death; Z82.49 Family history of ischemic heart disease and other diseases of the circulatory system; Z82.5 Family history of asthma and other chronic lower respiratory diseases; Z83.3 Family history of diabetes mellitus
CPT/HCPCS: 31622; 36415; 36430; 36569; 36581; 36600; 71045; 71275; 73700; 76604; 77001; 80048; 80053; 80074; 80202; 82040; 82550; 82803; 82948; 83036; 83605; 83735; 83874; 83930; 84100; 84145; 84443; 84484; 85014; 85018; 85025; 85027; 85610; 85651; 85730; 86038; 86140; 86147; 86215; 86606; 86738; 86850; 86900; 86901; 86922; 87040; 87070; 87071; 87076; 87077; 87116; 87186; 87205; 87206; 87486; 87493; 87581; 87633; 87798; 88112; 88304; 88305; 88312; 89051; 90935; 93005; 93970; A4606; C1750; C1751; C1769; C1894; G0378; J0330; J0360; J0456; J0690; J0696; J0885; J1100; J1644; J1650; J1815; J1956; J2001; J2175; J2250; J2405; J2543; J2704; J2710; J2997; J3010; J3370; J3490; J7030; J7042; J7050; J7070; P9016; Q9967

== ENCOUNTER 2020-07-26 10:45 | Inpatient (IN) | payer MEDICARE ==
[~2020-07-26] VITALS: Ht 154.9 cm; Wt 66.1 kg
[~2020-07-26 10:45] MED LIST changes: -GABA-529 PO; -METO50TA18 PO; -NPH,100V11 SQ; -SUCR500T PO
[2020-07-26 11:53] LABS: BASOPHILS % (AUTO) 0.8 % (0.0-5.0); EOSINOPHILS % (AUTO) 1.3 % (0.0-8.0); MEAN CORPUSCULAR HEMOGLOBIN 28.6 pg (27.0-33.0); MEAN CORPUSCULAR HGB CONC 29.6 g/dL (32.0-36.0); MEAN CORPUSCULAR VOLUME 96.4 fL (79-99); NEUTROPHILS % (AUTO) 72.4 % (40.0-77.0); PLATELET COUNT (AUTO) 466 K/uL (130-400); RED BLOOD CELL COUNT(AUTO) 1.96 MIL/uL (4.00-5.50); RED CELL DISTRIBUTION WIDTH 18.6 % (11.0-15.5); WHITE BLOOD COUNT (AUTO) 16.1 K/uL (4.8-10.8)
[2020-07-26 12:07] LABS: BILIRUBIN,TOTAL 0.3 mg/dL (0.2-1.0); POTASSIUM 5.9 mmol/L (3.5-5.1); TOTAL PROTEIN, SERUM 6.2 g/dL (6.0-8.3)
[2020-07-26 12:08] LABS: CREATININE 8.5 mg/dL (0.5-1.5)
[2020-07-26 12:20] LABS: INR 1.37 (0.85-1.15); PARTIAL THROMBOPLASTIN TIME 31.8 SEC (26.3-35.5); PROTHROMBIN TIME 14.6 SEC (9.6-11.6)
[2020-07-26 12:32] LABS: HEMATOCRIT 18.9 % (36-48)
[2020-07-26] MEDS ORDERED: ZOSYN 3.375GM+NS 50ML 50 ML IV ONE (12:38)
[2020-07-26] MEDS ORDERED: ACETAMINOPHEN 325 MG TAB PO PRN (15:15)
[2020-07-26] MEDS ORDERED: ONDANSETRON HCL 4 MG/2 ML VIAL IVP PRN (15:15)
[2020-07-26] MEDS ORDERED: ACETAMINOPHEN-CODEINE 300/30MG TAB PO PRN (15:15)
[2020-07-26] MEDS ORDERED: PHARMACY COMMUNICATION MISC SCH (15:15)
[2020-07-26] MEDS ORDERED: INSULIN HUMULIN R 100 UNIT/ML 3ML ONE (18:10)
[2020-07-26 18:20] LABS: HEMATOCRIT 18.6 % (36-48)
[2020-07-26] MEDS ORDERED: SODIUM CHLORIDE 0.9% 250 ML IV ONE (19:55)
[2020-07-26] MEDS ORDERED: HEPARIN SODIUM 5000UNIT/ML 1ML VIAL ONE (20:17)
[2020-07-26] MEDS ORDERED: ALBUMIN (HUMAN) 25% 50 ML IV ONE (20:28)
[2020-07-26] MEDS: EPOETIN ALFA 10,000 UNIT/ML VIAL SQ NR (21:00)
[2020-07-26 22:50] VITALS: BP 149/83
[2020-07-26] MEDS ORDERED: DEXTROSE 50%-WATER 50 ML DISP.SYRIN IV ONE (23:04)
[2020-07-26] MEDS: ZOSYN 3.375GM+NS 50ML 50 ML IV SCH (23:19)
[2020-07-26] MEDS ORDERED: GLUCAGON 1MG KIT 1 MG ML IM PRN (23:30)
[2020-07-26] MEDS ORDERED: DEXTROSE 50%-WATER 50 ML DISP.SYRIN IV PRN (23:30)
[2020-07-27 00:54] LABS: HEMATOCRIT 27.1 % (36-48)
[2020-07-27] MEDS ORDERED: DEXTROSE 10%-WATER 1,000 ML IV ONE (02:00)
[2020-07-27] MEDS ORDERED: DEXTROSE 50%-WATER 50 ML DISP.SYRIN IV ONE (02:01)
[2020-07-27] MEDS: DEXTROSE 10%-WATER 1,000 ML IV SCH (02:23)
--- NOTE | 2020-07-27 02:25 | NUR ---
BLOOD SUGAR 35 TWICE TONIGHT. OREN MARCUS NP AWARE. NEW ORDERS RECEIVED AND CARRIED OUT. NEW IV STARTED USING CLEAN TECHNIQUE X1 ATTEMPT. 20GAUGE TO LEFT ANTECUBITAL. PATIENT TOLERATED WELL. NO COMPLAINTS OF PAIN VOICED AT THIS TIME. PATIENT AWARE OF NEW ORDERS. WILL CONTINUE TO BE MONITORED CLOSELY. CALL LIGHT WITHIN REACH. Addendum: 07/27/20 at 0228 by SANJAY LOUISE RN RN Amended: Links added.
[2020-07-27 03:27] VITALS: BP 115/60
[2020-07-27 04:29] LABS: HEMATOCRIT 28.4 % (36-48); MEAN CORPUSCULAR HEMOGLOBIN 29.3 pg (27.0-33.0); MEAN CORPUSCULAR HGB CONC 32.4 g/dL (32.0-36.0); MEAN CORPUSCULAR VOLUME 90.4 fL (79-99); NUCLEATED RED BLOOD CELLS 0.2 % (0.0-0.19); RED BLOOD CELL COUNT(AUTO) 3.14 MIL/uL (4.00-5.50); RED CELL DISTRIBUTION WIDTH 17.2 % (11.0-15.5); WHITE BLOOD COUNT (AUTO) 12.2 K/uL (4.8-10.8)
[2020-07-27 05:48] LABS: ALBUMIN 1.3 g/dL (3.5-5.0); BILIRUBIN,TOTAL 0.5 mg/dL (0.2-1.0); PHOSPHORUS 5.5 mg/dL (2.5-4.9); POTASSIUM 4.8 mmol/L (3.5-5.1); TOTAL PROTEIN, SERUM 6.5 g/dL (6.0-8.3)
[2020-07-27] MEDS: INSULIN HUMULIN R 100 UNIT/ML 3ML SQ SCH ×4 (07:10→20:17)
[2020-07-27] MEDS: ZOSYN 3.375GM+NS 50ML 50 ML IV SCH (07:48)
[2020-07-27 08:06] VITALS: BP 111/50
[2020-07-27] MEDS: FENTANYL 25 MCG/HR PATCH TD SCH (10:20)
[2020-07-27 11:33] VITALS: BP 102/61
--- NOTE | 2020-07-27 11:45 | NUR ---
DR. HOLLIS FOR GI CONSULT . CALLED FOR PT . INFORMATION . AND ORDERS TO FOLLOW .
[2020-07-27 12:06] LABS: HEMATOCRIT 27.1 % (36-48)
--- NOTE | 2020-07-27 12:30 | NUR ---
DIALYSIS TREATMENT COMPLETED , SEE ACUTE DIALYSIS CARE HEMODIALYIS ASSESSMENT FLOW SHEET FOR V/S ASND TREATMENT .
--- NOTE | 2020-07-27 13:02 | NUR ---
PCR NASAL SWAB , SEND TO LAB
--- NOTE | 2020-07-27 15:46 | NUR ---
MET Apolinar BANUELOS AT BEDSIDE FOR DCPLANNING. STATES SHE LIVES WITH HER MINOR CHILDREN, IS INDEPENDENT, DRIVE, AND HAS NO TROUBLE WITH STAIRS. HOME IS SAFE AND ACCESSIBLE, SAMUEL DRIVES SELF TO HD IN [place] MWF MID SHIFT. [facility] HAS PROVIDER SERVICES OF 22 HR/WK, STATES NO HOME HEALTH. AUNT ON FACE SHEET TO DRIVE HOME, [facility] SINCE LAST ADMISSION HAS BEEN USING A STD WALKER AT TIMES. [facility], [place] TO FOLLOW Addendum: 07/27/20 at 1549 by RAUL ALVARADO RN CM Amended: Links added.
--- NOTE | 2020-07-27 15:57 | NUR ---
RD NOTIFICATION Pt admitted due to acute anemia and ESRD. As per EMR, pt has had diarrhea since being discharged from hospital on June. 2 days prior to admission pt had nausea and vomiting. Pt is currently on a renal HD diet and consuming 100% as per EMR. Pt was admitted with low levels of hgb and hct requiring blood transfusion. Pt's corrected Ca is of 9.0 RD RECOMMENDATION: Add 75 gm CC modifier to current diet order. Monitor BG levels and Renal labs as well as electrolytes. Ensure Clear BID Consider MVI RD will follow with diet education. LABS: BUN 32, CREAT 5.0, GFR 11, BG 205, TOT CA 7.2, PHOS 5.5, ALK PHOS 180, ALB 1.3, TOT PRO 6.5 LBM: 07/26/20 Addendum: 07/27/20 at [address] Amended: Links added.
[2020-07-27 16:11] VITALS: BP 127/71
[2020-07-27] MEDS: PANTOPRAZOLE 40 MG/VIAL IVP SCH (16:11)
[2020-07-27] MEDS: METRONIDAZOLE 500 MG TABLET PO SCH ×2 (16:12→20:28)
[2020-07-27] MEDS: BALSAM PERU/CASTOR OIL 60 GM TUBE TP SCH ×2 (16:12→20:18)
[2020-07-27] MEDS: CEFTRIAXONE SODIUM 1 GM IVP SCH (16:13)
[2020-07-27 17:52] LABS: HEMATOCRIT 29.6 % (36-48)
[2020-07-27 19:50] VITALS: BP 131/67
[2020-07-27] MEDS: INSULIN GLARGINE 100 UNITS/ML 10 ML VIAL SQ SCH (21:15)
[2020-07-27] MEDS ORDERED: MORPHINE SULFATE 2 MG/ML 1ML SYG IVP ONE (21:30)
[2020-07-28] VITALS (7 sets, daily range): BP systolic 109–140; BP diastolic 60–77
[2020-07-28] MEDS: DEXTROSE 10%-WATER 1,000 ML IV SCH (03:49)
[2020-07-28] MEDS: METRONIDAZOLE 500 MG TABLET PO SCH ×3 (04:52→21:36)
--- NOTE | 2020-07-28 05:44 | NUR ---
Patient rested well after morphine was given. D10 infusing through 24 gauge and set at lower rate to preserve iv site. Patient is a difficult stick and will need a Picc line placed. During tour bed locked in low position with siderails up x2. current glucose 137. will continue to monitor as needed.
[2020-07-28 06:48] LABS: EOSINOPHILS % (AUTO) 4.1 % (0.0-8.0); HEMATOCRIT 26.5 % (36-48); LYMPHOCYTES % (AUTO) 19.3 % (21.0-51.0); MEAN CORPUSCULAR HEMOGLOBIN 29.3 pg (27.0-33.0); MEAN CORPUSCULAR HGB CONC 31.3 g/dL (32.0-36.0); MEAN CORPUSCULAR VOLUME 93.6 fL (79-99); MONOCYTES % (AUTO) 8.3 % (3.0-13.0); NEUTROPHILS % (AUTO) 65.9 % (40.0-77.0); NUCLEATED RED BLOOD CELLS 0.2 % (0.0-0.19); PLATELET COUNT (AUTO) 418 K/uL (130-400); RED BLOOD CELL COUNT(AUTO) 2.83 MIL/uL (4.00-5.50); RED CELL DISTRIBUTION WIDTH 17.9 % (11.0-15.5); WHITE BLOOD COUNT (AUTO) 12.3 K/uL (4.8-10.8)
[2020-07-28 07:07] LABS: ALBUMIN 1.1 g/dL (3.5-5.0); ASPARTATE AMINOTRANSFERASE 14 U/L (10-37); BILIRUBIN,TOTAL 0.4 mg/dL (0.2-1.0); CARBON DIOXIDE 27 mmol/L (21-32); CHLORIDE 95 mmol/L (101-111); CREATININE 4.3 mg/dL (0.5-1.5); GLOMERULAR FILTR. RATE CALC 13 mL/min (>60); GLUCOSE,RANDOM 136 mg/dL (70-105); PHOSPHORUS 5.4 mg/dL (2.5-4.9); POTASSIUM 4.5 mmol/L (3.5-5.1); SODIUM SERUM 132 mmol/L (136-145); TOTAL PROTEIN, SERUM 6.5 g/dL (6.0-8.3); UREA NITROGEN, BLOOD 26 mg/dL (7-18)
[2020-07-28 07:08] LABS: ALANINE AMINOTRANSFERASE < 6 U/L (12-78); AMMONIA < 3 umol/L (11-32)
[2020-07-28] MEDS: INSULIN HUMULIN R 100 UNIT/ML 3ML SQ SCH ×5 (07:30→21:33)
[2020-07-28] MEDS ORDERED: HEPARIN SODIUM 5000UNIT/ML 1ML VIAL IJ PRN ×2 (08:30)
[2020-07-28] MEDS ORDERED: 0.9% SODIUM CHLORIDE 1000 ML IV BAG IV PRN (08:30)
[2020-07-28] MEDS ORDERED: LIDOCAINE HCL-MPF 1% 2ML VIAL IJ PRN (08:30)
[2020-07-28] MEDS ORDERED: PHARMACY COMMUNICATION MISC PRN (08:30)
[2020-07-28] MEDS ORDERED: SODIUM CHLORIDE 0.9% 1000ML 1,000 ML IV PRN (08:30)
[2020-07-28] MEDS ORDERED: NITROGLYCERIN 0.4 MG SL TAB SL PRN (08:30)
[2020-07-28] MEDS ORDERED: ACETAMINOPHEN 325 MG TAB PO PRN (08:30)
[2020-07-28] MEDS: CEFTRIAXONE SODIUM 1 GM IVP SCH (09:16)
[2020-07-28] MEDS: PANTOPRAZOLE 40 MG/VIAL IVP SCH (09:16)
[2020-07-28] MEDS: BALSAM PERU/CASTOR OIL 60 GM TUBE TP SCH ×3 (09:19→21:36)
[2020-07-28] MEDS: INSULIN GLARGINE 100 UNITS/ML 10 ML VIAL SQ SCH ×2 (21:00→21:32)
[2020-07-28] MEDS: EPOETIN ALFA 10,000 UNIT/ML VIAL SQ NR (21:30)
[2020-07-29] VITALS (12 sets, daily range): BP systolic 106–158; BP diastolic 64–90
[2020-07-29 05:25] LABS: BASOPHILS % (AUTO) 0.9 % (0.0-5.0); EOSINOPHILS % (AUTO) 2.5 % (0.0-8.0); HEMATOCRIT 30.2 % (36-48); LYMPHOCYTES % (AUTO) 18.9 % (21.0-51.0); MEAN CORPUSCULAR HEMOGLOBIN 29.5 pg (27.0-33.0); MEAN CORPUSCULAR HGB CONC 31.5 g/dL (32.0-36.0); MEAN CORPUSCULAR VOLUME 93.8 fL (79-99); NEUTROPHILS % (AUTO) 67.6 % (40.0-77.0); PLATELET COUNT (AUTO) 476 K/uL (130-400); RED BLOOD CELL COUNT(AUTO) 3.22 MIL/uL (4.00-5.50); RED CELL DISTRIBUTION WIDTH 17.6 % (11.0-15.5); WHITE BLOOD COUNT (AUTO) 9.2 K/uL (4.8-10.8)
[2020-07-29 05:34] LABS: INR 1.41 (0.85-1.15); PARTIAL THROMBOPLASTIN TIME 31.2 SEC (26.3-35.5)
[2020-07-29] MEDS: METRONIDAZOLE 500 MG TABLET PO SCH ×3 (05:35→21:44)
[2020-07-29 05:44] LABS: ALBUMIN 1.1 g/dL (3.5-5.0); ASPARTATE AMINOTRANSFERASE 13 U/L (10-37); BILIRUBIN,TOTAL 0.5 mg/dL (0.2-1.0); CARBON DIOXIDE 24 mmol/L (21-32); CHLORIDE 93 mmol/L (101-111); CREATININE 3.5 mg/dL (0.5-1.5); GLOMERULAR FILTR. RATE CALC 16 mL/min (>60); GLUCOSE,RANDOM 342 mg/dL (70-105); POTASSIUM 4.2 mmol/L (3.5-5.1); SODIUM SERUM 132 mmol/L (136-145); TOTAL PROTEIN, SERUM 6.7 g/dL (6.0-8.3); UREA NITROGEN, BLOOD 19 mg/dL (7-18)
[2020-07-29 05:45] LABS: ALANINE AMINOTRANSFERASE < 6 U/L (12-78)
[2020-07-29] MEDS: INSULIN HUMULIN R 100 UNIT/ML 3ML SQ SCH ×4 (06:05→21:00)
--- NOTE | 2020-07-29 08:30 | NUR ---
ASSESSMENT PT IS AAOX3, RESTING IN BED. DENIES CP DENIES SOB. NO COMPLAINTS AT THIS TIME. CALL LIGHT WITHIN REACH. PENDING PICC LINE PLACEMENT.
[2020-07-29] MEDS: PANTOPRAZOLE 40 MG/VIAL IVP SCH (09:00)
[2020-07-29] MEDS: CEFTRIAXONE SODIUM 1 GM IVP SCH (09:06)
[2020-07-29] MEDS: BALSAM PERU/CASTOR OIL 60 GM TUBE TP SCH ×3 (09:07→21:00)
--- NOTE | 2020-07-29 12:49 | NUR ---
RD FOLLOW UP Pt is currently on a CLD and consuming 100% as per EMR. Pt has order for Ensure Clear BID. Pt is pending procedure. Pt is still having intermittent episodes of diarrhea. As per EMR pt has a stage II sacral ulcer. RD RECOMMENDATION: Add Alejandro BID to diet order. Mix with 8 oz of clear liquid to aid in wound healing When medically feasible, consider Vitamin C 1000 mg QD and Zinc Sulfate 220 mg QD to further aid in wound healing. Diet education to follow as pt's condition improves. Monitor PO tolerance and intake When medically feasible to advance pt's diet, consider a GI soft bland with a 75 gm and Renal HD modifier. Monitor electrolytes, and BG levels. LABS: HGB 9.5, HCT 30.2, NA 132, CL 93, BUN 19, CREAT 3.5, GFR 16, BG 324, TOT CA 7.7, ALK PHOS 316, ALB 1.1 LBM: 07/29/20 Addendum: 07/29/20 at [address] Amended: Links added.
[2020-07-29] MEDS ORDERED: PHARMACY COMMUNICATION MISC SCH (13:30)
--- NOTE | 2020-07-29 15:30 | NUR ---
A 5 FR, 2 LUMEN PICC LINE WAS INSERTED BY TORIBIO REID RN USING LIGHT EQUIPMENT OPERATOR,36 CM INTERNAL CATHETER AND 2 CM EXTERNAL CATHETER . PICC LINE LOCATED AT RT BASILIC , X RAY ORDERED AND PENDING TO BE CLEAT BY RADIOLOGIST. A PROCEDURE REPORT WAS GIVEN TO TOMAS HOWARD RN PRIMARY CARE NURSE. Addendum: 07/29/20 at 1609 by REJI NI RN RN Amended: Links added.
--- NOTE | 2020-07-29 17:29 | NUR ---
DR HOLLIS CONSULT PLAN FOR EGD TODAY. CONSENT OBTAINED.
[2020-07-29] MEDS ORDERED: PROPOFOL 10 MG/ML 20ML VIAL IV ONE (17:57)
--- NOTE | 2020-07-29 18:00 | NUR ---
DOWN TO EGD VIA BED WITH GI STAFF
[2020-07-29] MEDS ORDERED: INSULIN GLARGINE 100 UNITS/ML 10 ML VIAL SQ SCH (21:00)
[2020-07-29] MEDS: PANTOPRAZOLE SODIUM 40 MG TABLET.DR PO SCH (21:44)
[2020-07-30] VITALS: BP 153/88
--- NOTE | 2020-07-30 00:25 | NUR ---
ORDERS PATIENT STATES SHE HAS HAD 15 EPISODES OF DIARRHEA. MAIL SUPERINTENDENT AND I HAVE CHANGED HER BRIEF 5X FROM [phone]. PATIENT'S STOOL IS BROWN AND LOOSE/WATERY. PER ADRIANA JULIO COLLECT STOOL AND SEND TO LAB TO R/O CDIFF.
[2020-07-30 04:00] VITALS: BP 145/77
[2020-07-30 04:54] LABS: BASOPHILS % (AUTO) 1.7 % (0.0-5.0); EOSINOPHILS % (AUTO) 3.7 % (0.0-8.0); HEMATOCRIT 28.2 % (36-48); LYMPHOCYTES % (AUTO) 21.4 % (21.0-51.0); MEAN CORPUSCULAR HEMOGLOBIN 28.9 pg (27.0-33.0); MEAN CORPUSCULAR HGB CONC 31.2 g/dL (32.0-36.0); MEAN CORPUSCULAR VOLUME 92.8 fL (79-99); MONOCYTES % (AUTO) 8.6 % (3.0-13.0); NEUTROPHILS % (AUTO) 63.4 % (40.0-77.0); PLATELET COUNT (AUTO) 448 K/uL (130-400); RED BLOOD CELL COUNT(AUTO) 3.04 MIL/uL (4.00-5.50); RED CELL DISTRIBUTION WIDTH 17.4 % (11.0-15.5); WHITE BLOOD COUNT (AUTO) 8.4 K/uL (4.8-10.8)
[2020-07-30 05:14] LABS: ASPARTATE AMINOTRANSFERASE 9 U/L (10-37); BILIRUBIN,TOTAL 0.4 mg/dL (0.2-1.0); CARBON DIOXIDE 26 mmol/L (21-32); CHLORIDE 96 mmol/L (101-111); CREATININE 4.8 mg/dL (0.5-1.5); GLOMERULAR FILTR. RATE CALC 11 mL/min (>60); GLUCOSE,RANDOM 257 mg/dL (70-105); SODIUM SERUM 132 mmol/L (136-145); UREA NITROGEN, BLOOD 25 mg/dL (7-18)
[2020-07-30 05:40] LABS: ALANINE AMINOTRANSFERASE < 6 U/L (12-78)
[2020-07-30] MEDS: METRONIDAZOLE 500 MG TABLET PO SCH ×2 (05:50→13:06)
[2020-07-30] MEDS: INSULIN HUMULIN R 100 UNIT/ML 3ML SQ SCH ×3 (05:52→11:30)
--- NOTE | 2020-07-30 06:01 | NUR ---
PATIENT REFUSED 2 UNITS OF INSULIN AND HER PO FLAGYL AT THIS TIME. SHE WOULD LIKE IT WITH BREAKFAST.
--- NOTE | 2020-07-30 06:06 | NUR ---
MEDIHONEY NOT APPLIED TO KNEES. [facility] WILL CALL [facility]Y IN AM
[2020-07-30 08:15] VITALS: BP 145/79
[2020-07-30] MEDS: BALSAM PERU/CASTOR OIL 60 GM TUBE TP SCH ×2 (08:37→13:02)
[2020-07-30] MEDS: PANTOPRAZOLE SODIUM 40 MG TABLET.DR PO SCH (08:37)
[2020-07-30] MEDS ORDERED: HONEY 1 APPL/ML TUBE TP SCH (09:00)
[2020-07-30] MEDS ORDERED: MIDODRINE HCL 5 MG TABLET PO SCH (09:00)
[2020-07-30] MEDS ORDERED: AZITHROMYCIN 250 MG TABLET PO SCH (09:00)
[2020-07-30] MEDS: FENTANYL 25 MCG/HR PATCH TD SCH (11:00)
[2020-07-30 12:02] VITALS: BP 147/88
[2020-07-30] MEDS: EPOETIN ALFA 10,000 UNIT/ML VIAL SQ NR (14:12)
[2020-07-30] MEDS ORDERED: EPOETIN ALFA 10,000 UNIT/ML VIAL SQ SCH (15:00)
[2020-07-30 16:01] VITALS: BP 139/89
--- NOTE | 2020-07-30 16:17 | NUR ---
RD FOLLOW UP Pt's current diet order is of a GI soft/ Renal HD diet. As per EMR pt is consuming 50% of meals As per RN, pt has had no episodes of diarrhea. RD RECOMMENDATION: Continue current diet order. Nepro BID, and Alejandro BID. Monitor tolerance and PO intake Pt may benefit from a renal MVI. Monitor Labs, and hydration. RD will continue to monitor pt's status. Contact as nutritional concerns arise. Addendum: 07/30/20 at [address] Amended: Links added.
--- NOTE | 2020-07-30 17:09 | NUR ---
discharge Patient given discharge instructions including continuing medications no new prescriptions, follow up with wound care, and pcp. All questions answered plan of care reviewed. Wound care education reenforced as directed from Dr. Wallace. Patient is taking home topical creams Medihoney and venilex as well as the iodine solution Dr. Wallace gave her.
[2020-07-31 08:14] LABS: HEPATITIS A ANTIBODY IGM Negative (Negative); HEPATITIS B CORE IGM Negative (Negative); HEPATITIS Bs ANTIGEN SCREEN P Negative (Negative)
== END 2020-07-30 17:51 | disposition home or self-care (01) | DRG 871 ==
LOC: EDH 10:45 → EDHIP 13:10 → 4CH 22:38
PROVIDERS: ADMIT Hospitalist; ATTEND Hospitalist
PROC: 5A1D70Z Performance of Urinary Filtration, Intermittent, Less than 6 Hours Per Day (ICD-10-PCS; 2020-06-25)
PROC: 5A1D70Z Performance of Urinary Filtration, Intermittent, Less than 6 Hours Per Day (ICD-10-PCS; 2020-06-26)
PROC: 30233N1 Transfusion of Nonautologous Red Blood Cells into Peripheral Vein, Percutaneous Approach (ICD-10-PCS; 2020-07-26)
PROC: 5A1D70Z Performance of Urinary Filtration, Intermittent, Less than 6 Hours Per Day (ICD-10-PCS; 2020-07-28)
PROC: 0DB68ZX Excision of Stomach, Via Natural or Artificial Opening Endoscopic, Diagnostic (ICD-10-PCS; principal; 2020-07-29)
PROC: 0DB38ZX Excision of Lower Esophagus, Via Natural or Artificial Opening Endoscopic, Diagnostic (ICD-10-PCS; 2020-07-29)
PROC: 0DB98ZX Excision of Duodenum, Via Natural or Artificial Opening Endoscopic, Diagnostic (ICD-10-PCS; 2020-07-29)
PROC: 02H633Z Insertion of Infusion Device into Right Atrium, Percutaneous Approach (ICD-10-PCS; 2020-07-29)
PROC: 5A1D70Z Performance of Urinary Filtration, Intermittent, Less than 6 Hours Per Day (ICD-10-PCS; 2020-07-30)
DX: A41.9 Sepsis, unspecified organism (principal); N18.6 End stage renal disease; A02.9 Salmonella infection, unspecified; D62 Acute posthemorrhagic anemia; E87.1 Hypo-osmolality and hyponatremia; I12.0 Hypertensive chronic kidney disease with stage 5 chronic kidney disease or end stage renal disease; L97.829 Non-pressure chronic ulcer of other part of left lower leg with unspecified severity; L97.819 Non-pressure chronic ulcer of other part of right lower leg with unspecified severity; K52.9 Noninfective gastroenteritis and colitis, unspecified; Z99.2 Dependence on renal dialysis; L89.322 Pressure ulcer of left buttock, stage 2; S80.211A Abrasion, right knee, initial encounter; S80.212A Abrasion, left knee, initial encounter; L89.152 Pressure ulcer of sacral region, stage 2; D63.8 Anemia in other chronic diseases classified elsewhere; E10.22 Type 1 diabetes mellitus with diabetic chronic kidney disease; E10.319 Type 1 diabetes mellitus with unspecified diabetic retinopathy without macular edema; E10.40 Type 1 diabetes mellitus with diabetic neuropathy, unspecified; E87.5 Hyperkalemia; K20.90 Esophagitis, unspecified without bleeding; E10.51 Type 1 diabetes mellitus with diabetic peripheral angiopathy without gangrene; K25.9 Gastric ulcer, unspecified as acute or chronic, without hemorrhage or perforation; Z79.4 Long term (current) use of insulin; Z81.8 Family history of other mental and behavioral disorders; Z82.0 Family history of epilepsy and other diseases of the nervous system; Z82.3 Family history of stroke; Z82.41 Family history of sudden cardiac death; Z82.49 Family history of ischemic heart disease and other diseases of the circulatory system; Z82.5 Family history of asthma and other chronic lower respiratory diseases; Z83.3 Family history of diabetes mellitus; Z86.19 Personal history of other infectious and parasitic diseases; Z98.891 History of uterine scar from previous surgery; Z20.828 Contact with and (suspected) exposure to other viral communicable diseases; X58.XXXA Exposure to other specified factors, initial encounter; Y93.89 Activity, other specified; Y92.89 Other specified places as the place of occurrence of the external cause; Y99.8 Other external cause status
CPT/HCPCS: 36415; 43239; 71045; 80053; 80074; 82140; 82270; 82803; 82947; 82948; 83605; 83735; 84100; 84484; 85014; 85018; 85025; 85027; 85610; 85730; 86156; 86850; 86900; 86901; 86923; 87040; 87046; 87177; 87324; 87507; 90935; 93005; A4606; C1894; C9113; G0378; J0696; J0885; J1644; J1815; J2543; J2704; J3490; J7030; J7050; J7070; P9016; P9047; U0003

== ENCOUNTER 2020-09-19 18:10 | Inpatient (IN) | payer MEDICARE ==
[~2020-09-19] VITALS: Ht 134.6 cm; Wt 62.6 kg
[~2020-09-19 18:10] MED LIST changes: -AMLO-257 PO; +BACI1TAB3 PO; +CALC-862 PO; -DULOXETINE PO; +FERR210T PO; +FERS325 PO; +FOLI0.4T2 PO; +GABA-529 PO; +INSU100I45 SQ; +LOPE2CAP PO; +PANT40TA55 PO; -SEVE800T7 PO; -VIT-7 PO
[2020-09-19] MEDS ORDERED: ONDANSETRON HCL 4 MG/2 ML VIAL IV PRN (19:15)
[2020-09-19] MEDS ORDERED: GLUCAGON 1MG KIT 1 MG ML IM PRN (19:30)
[2020-09-19] MEDS ORDERED: HYDROMORPHONE 1 MG/1 ML AMP ONE (19:38)
[2020-09-19 20:05] LABS: BASOPHILS % (AUTO) 0.5 % (0.0-5.0); EOSINOPHILS % (AUTO) 4.8 % (0.0-8.0); LYMPHOCYTES % (AUTO) 14.3 % (21.0-51.0); MEAN CORPUSCULAR HEMOGLOBIN 30.6 pg (27.0-33.0); MEAN CORPUSCULAR HGB CONC 31.7 g/dL (32.0-36.0); MEAN CORPUSCULAR VOLUME 96.4 fL (79-99); NEUTROPHILS % (AUTO) 71.1 % (40.0-77.0); PLATELET COUNT (AUTO) 343 K/uL (130-400); RED BLOOD CELL COUNT(AUTO) 1.93 MIL/uL (4.00-5.50); RED CELL DISTRIBUTION WIDTH 16.8 % (11.0-15.5); WHITE BLOOD COUNT (AUTO) 22.1 K/uL (4.8-10.8)
[2020-09-19 20:21] LABS: PROTHROMBIN TIME 13.6 SEC (9.6-11.6)
[2020-09-19 20:25] LABS: CREATININE 5.5 mg/dL (0.5-1.5)
[2020-09-19 20:33] LABS: ALBUMIN 1.8 g/dL (3.5-5.0); BILIRUBIN,TOTAL 0.6 mg/dL (0.2-1.0); TOTAL PROTEIN, SERUM 5.9 g/dL (6.0-8.3)
[2020-09-19 20:40] LABS: HEMATOCRIT 18.6 % (36-48)
[2020-09-19 20:41] LABS: PARTIAL THROMBOPLASTIN TIME > 120.0 SEC (26.3-35.5)
[2020-09-19 21:26] LABS: BAND NEUTROPHILS % (MANUAL) 35 % (0-2); EOSINOPHILS % (MANUAL) 4 % (1-6); LYMPHOCYTES % (MANUAL) 13 % (22-44); MONOCYTES % (MANUAL) 11 % (2-9); REACTIVE LYMPHOCYTES 7 % (0-0); SEGMENTED NEUTROPHILS % 30 % (40-70)
[2020-09-19 21:27] LABS: MAN.DIFF COMMENT-IMPRESSION MANUAL DIFFERENTIAL
[2020-09-19 21:30] LABS: PLATELET MORPHOLOGY COMMENT LARGE PLTS PRESENT
[2020-09-20] MEDS ORDERED: HYDROMORPHONE HCL 0.5 MG/0.5 ML ML ONE ×3 (00:55→08:07)
[2020-09-20 09:10] LABS: BASOPHILS % (AUTO) 0.5 % (0.0-5.0); EOSINOPHILS % (AUTO) 1.3 % (0.0-8.0); LYMPHOCYTES % (AUTO) 9.8 % (21.0-51.0); MEAN CORPUSCULAR HEMOGLOBIN 30.9 pg (27.0-33.0); MEAN CORPUSCULAR HGB CONC 32.3 g/dL (32.0-36.0); MEAN CORPUSCULAR VOLUME 95.9 fL (79-99); MONOCYTES % (AUTO) 4.3 % (3.0-13.0); NEUTROPHILS % (AUTO) 83.1 % (40.0-77.0); PLATELET COUNT (AUTO) 288 K/uL (130-400); RED BLOOD CELL COUNT(AUTO) 1.94 MIL/uL (4.00-5.50); RED CELL DISTRIBUTION WIDTH 16.9 % (11.0-15.5); WHITE BLOOD COUNT (AUTO) 16.8 K/uL (4.8-10.8)
[2020-09-20 09:16] LABS: HEMATOCRIT 18.6 % (36-48)
[2020-09-20 09:27] LABS: ALBUMIN 1.8 g/dL (3.5-5.0); BILIRUBIN,TOTAL 0.5 mg/dL (0.2-1.0); CREATININE 3.6 mg/dL (0.5-1.5); POTASSIUM 4.5 mmol/L (3.5-5.1); TOTAL PROTEIN, SERUM 6.2 g/dL (6.0-8.3)
[2020-09-20 09:32] LABS: B-TYPE NATRIURETIC PEPTIDE 224 pg/mL (0-100)
[2020-09-20] MEDS ORDERED: HEPARIN SODIUM 5000UNIT/ML 1ML VIAL IJ PRN (10:45)
[2020-09-20] MEDS ORDERED: PHARMACY COMMUNICATION MISC PRN (10:45)
[2020-09-20] MEDS ORDERED: SODIUM CHLORIDE 0.9% 1000ML 1,000 ML IV PRN (10:45)
[2020-09-20] MEDS ORDERED: LIDOCAINE HCL-MPF 1% 2ML VIAL IJ PRN (10:45)
[2020-09-20] MEDS ORDERED: 0.9% SODIUM CHLORIDE 1000 ML IV BAG IV PRN (10:45)
[2020-09-20] MEDS ORDERED: NITROGLYCERIN 0.4 MG SL TAB SL PRN (10:45)
[2020-09-20 14:24] LABS: HEMATOCRIT 26.8 % (36-48)
[2020-09-20] MEDS: GABAPENTIN 100 MG CAPSULE PO SCH ×2 (14:49→20:22)
[2020-09-20 16:00] VITALS: BP 125/65
[2020-09-20] MEDS: INSULIN HUMULIN R 100 UNIT/ML 3ML SQ SCH ×2 (16:30→20:45)
[2020-09-20] MEDS: PANTOPRAZOLE SODIUM 80 MG in SODIUM CHLORIDE 0.9% 100 ML IV SCH ×2 (16:45→23:53)
[2020-09-20] MEDS: HYDROMORPHONE 1 MG/1 ML AMP IV PRN ×2 (19:35→23:53)
[2020-09-20 20:45] VITALS: BP 117/51
[2020-09-20 21:17] LABS: HEMATOCRIT 27.1 % (36-48)
[2020-09-21] VITALS (17 sets, daily range): BP systolic 94–148; BP diastolic 34–73
[2020-09-21 04:49] LABS: BASOPHILS % (AUTO) 0.6 % (0.0-5.0); EOSINOPHILS % (AUTO) 4.5 % (0.0-8.0); HEMATOCRIT 26.9 % (36-48); LYMPHOCYTES % (AUTO) 12.3 % (21.0-51.0); MEAN CORPUSCULAR HEMOGLOBIN 30.5 pg (27.0-33.0); MEAN CORPUSCULAR HGB CONC 33.1 g/dL (32.0-36.0); MEAN CORPUSCULAR VOLUME 92.1 fL (79-99); MONOCYTES % (AUTO) 8.6 % (3.0-13.0); NEUTROPHILS % (AUTO) 72.8 % (40.0-77.0); PLATELET COUNT (AUTO) 309 K/uL (130-400); RED BLOOD CELL COUNT(AUTO) 2.92 MIL/uL (4.00-5.50); RED CELL DISTRIBUTION WIDTH 17.3 % (11.0-15.5); WHITE BLOOD COUNT (AUTO) 20.9 K/uL (4.8-10.8)
[2020-09-21 05:14] LABS: ALBUMIN 1.9 g/dL (3.5-5.0); CREATININE 3.2 mg/dL (0.5-1.5); POTASSIUM 3.7 mmol/L (3.5-5.1); TOTAL PROTEIN, SERUM 6.1 g/dL (6.0-8.3)
[2020-09-21] MEDS: DEXTROSE 50%-WATER 50 ML DISP.SYRIN IV PRN (05:17)
[2020-09-21] MEDS: HYDROMORPHONE 1 MG/1 ML AMP IV PRN ×5 (05:33→21:56)
[2020-09-21 05:49] LABS: % IRON SATURATION 38.8 % (22-44)
[2020-09-21] MEDS: INSULIN HUMULIN R 100 UNIT/ML 3ML SQ SCH ×4 (07:21→20:49)
[2020-09-21 08:12] LABS: HEPATITIS A ANTIBODY IGM Negative (Negative); HEPATITIS B CORE IGM Negative (Negative); HEPATITIS Bs ANTIGEN SCREEN P Negative (Negative)
[2020-09-21] MEDS: GABAPENTIN 100 MG CAPSULE PO SCH ×3 (09:00→21:55)
[2020-09-21 09:32] LABS: HEMATOCRIT 26.9 % (36-48)
[2020-09-21] MEDS ORDERED: PROPOFOL 10 MG/ML 20ML VIAL IV ONE (10:44)
[2020-09-21] MEDS ORDERED: MIDAZOLAM HCL 1 MG/ML 2ML VIAL ONE (10:44)
[2020-09-21 14:50] LABS: HEMATOCRIT 26.3 % (36-48)
[2020-09-21 22:23] LABS: HEMATOCRIT 26.6 % (36-48)
[2020-09-22 05:06] LABS: BASOPHILS % (AUTO) 0.6 % (0.0-5.0); EOSINOPHILS % (AUTO) 5.6 % (0.0-8.0); HEMATOCRIT 26.4 % (36-48); LYMPHOCYTES % (AUTO) 14.2 % (21.0-51.0); MEAN CORPUSCULAR HEMOGLOBIN 30.8 pg (27.0-33.0); MEAN CORPUSCULAR HGB CONC 33.3 g/dL (32.0-36.0); MEAN CORPUSCULAR VOLUME 92.3 fL (79-99); MONOCYTES % (AUTO) 7.5 % (3.0-13.0); PLATELET COUNT (AUTO) 294 K/uL (130-400); RED BLOOD CELL COUNT(AUTO) 2.86 MIL/uL (4.00-5.50); RED CELL DISTRIBUTION WIDTH 16.9 % (11.0-15.5); WHITE BLOOD COUNT (AUTO) 18.6 K/uL (4.8-10.8)
[2020-09-22 05:13] VITALS: BP 150/71
[2020-09-22 05:28] LABS: CREATININE 3.9 mg/dL (0.5-1.5); POTASSIUM 3.8 mmol/L (3.5-5.1)
[2020-09-22] MEDS: INSULIN HUMULIN R 100 UNIT/ML 3ML SQ SCH ×4 (05:58→20:38)
[2020-09-22 08:00] VITALS: BP 121/61
[2020-09-22] MEDS: GABAPENTIN 100 MG CAPSULE PO SCH ×3 (09:00→20:35)
[2020-09-22 12:00] VITALS: BP 118/65
[2020-09-22] MEDS: HYDROMORPHONE 1 MG/1 ML AMP IV PRN ×3 (12:52→22:04)
[2020-09-22 13:21] LABS: HEMATOCRIT 27.9 % (36-48)
[2020-09-22 16:00] VITALS: BP 162/76
[2020-09-22 20:00] VITALS: BP 147/81
[2020-09-23] VITALS (13 sets, daily range): BP systolic 111–162; BP diastolic 39–82
[2020-09-23] MEDS: HYDROMORPHONE 1 MG/1 ML AMP IV PRN ×3 (03:23→20:13)
[2020-09-23 04:49] LABS: HEMATOCRIT 26.5 % (36-48); MEAN CORPUSCULAR HEMOGLOBIN 30.5 pg (27.0-33.0); MEAN CORPUSCULAR HGB CONC 32.8 g/dL (32.0-36.0); PLATELET COUNT (AUTO) 297 K/uL (130-400); RED BLOOD CELL COUNT(AUTO) 2.85 MIL/uL (4.00-5.50); RED CELL DISTRIBUTION WIDTH 16.5 % (11.0-15.5)
[2020-09-23 05:26] LABS: ALBUMIN 1.7 g/dL (3.5-5.0); BILIRUBIN,TOTAL 0.5 mg/dL (0.2-1.0); CREATININE 3.1 mg/dL (0.5-1.5); POTASSIUM 3.7 mmol/L (3.5-5.1); TOTAL PROTEIN, SERUM 6.3 g/dL (6.0-8.3)
[2020-09-23] MEDS: INSULIN HUMULIN R 100 UNIT/ML 3ML SQ SCH ×4 (05:26→20:10)
[2020-09-23] MEDS: DEXTROSE 50%-WATER 50 ML DISP.SYRIN IV PRN (05:28)
[2020-09-23 05:39] LABS: BAND NEUTROPHILS % (MANUAL) 5 % (0-2); BASOPHILS % (MANUAL) 1 % (0-2); EOSINOPHILS % (MANUAL) 5 % (1-6); LYMPHOCYTES % (MANUAL) 14 % (22-44); MONOCYTES % (MANUAL) 7 % (2-9); SEGMENTED NEUTROPHILS % 68 % (40-70)
[2020-09-23 05:40] LABS: MAN.DIFF COMMENT-IMPRESSION MANUAL DIFFERENTIAL; PLATELET MORPHOLOGY COMMENT ADEQUATE
[2020-09-23] MEDS: GABAPENTIN 100 MG CAPSULE PO SCH ×3 (09:00→20:12)
[2020-09-23] MEDS ORDERED: PROPOFOL 10 MG/ML 20ML VIAL IV ONE (12:35)
[2020-09-23] MEDS: EPOETIN ALFA-EPBX (ESRD) 10,000 UNIT/ML VIAL SQ SCH (15:00)
[2020-09-24] MEDS: HYDROMORPHONE 1 MG/1 ML AMP IV PRN ×4 (01:10→15:30)
[2020-09-24 01:50] VITALS: BP 150/84
[2020-09-24] MEDS: INSULIN HUMULIN R 100 UNIT/ML 3ML SQ SCH ×4 (03:39→21:18)
[2020-09-24] MEDS: DEXTROSE 50%-WATER 50 ML DISP.SYRIN IV PRN (03:39)
[2020-09-24 03:55] VITALS: BP 163/77
[2020-09-24 04:35] LABS: BASOPHILS % (AUTO) 0.9 % (0.0-5.0); EOSINOPHILS % (AUTO) 6.7 % (0.0-8.0); HEMATOCRIT 27.9 % (36-48); LYMPHOCYTES % (AUTO) 18.1 % (21.0-51.0); MEAN CORPUSCULAR HEMOGLOBIN 29.9 pg (27.0-33.0); MEAN CORPUSCULAR HGB CONC 31.9 g/dL (32.0-36.0); MEAN CORPUSCULAR VOLUME 93.6 fL (79-99); MONOCYTES % (AUTO) 9.4 % (3.0-13.0); NEUTROPHILS % (AUTO) 63.6 % (40.0-77.0); PLATELET COUNT (AUTO) 302 K/uL (130-400); RED BLOOD CELL COUNT(AUTO) 2.98 MIL/uL (4.00-5.50); RED CELL DISTRIBUTION WIDTH 16.1 % (11.0-15.5); WHITE BLOOD COUNT (AUTO) 13.5 K/uL (4.8-10.8)
[2020-09-24 04:45] LABS: ALBUMIN 1.6 g/dL (3.5-5.0); BILIRUBIN,TOTAL 0.4 mg/dL (0.2-1.0); CREATININE 4.1 mg/dL (0.5-1.5); POTASSIUM 3.5 mmol/L (3.5-5.1); TOTAL PROTEIN, SERUM 6.4 g/dL (6.0-8.3)
[2020-09-24 08:00] VITALS: BP 197/80
[2020-09-24] MEDS: GABAPENTIN 100 MG CAPSULE PO SCH (08:32)
[2020-09-24] MEDS: PANTOPRAZOLE SODIUM 40 MG TABLET.DR PO SCH (08:32)
[2020-09-24 12:00] VITALS: BP 142/73
[2020-09-24] MEDS ORDERED: ALBUMIN (HUMAN) 25% 100 ML IV SCH (12:45)
[2020-09-24] MEDS: EPOETIN ALFA-EPBX (ESRD) 10,000 UNIT/ML VIAL SQ SCH (13:59)
[2020-09-24] MEDS: HEPARIN SODIUM 5000UNIT/ML 1ML VIAL IJ PRN (13:59)
[2020-09-24] MEDS: BALSAM PERU/CASTOR OIL 60 GM TUBE TP SCH ×2 (15:30→21:13)
[2020-09-24 16:00] VITALS: BP 115/83
[2020-09-24 20:00] VITALS: BP 176/84
[2020-09-24] MEDS: ACETAMINOPHEN 325 MG TAB PO PRN (21:07)
[2020-09-25] VITALS (7 sets, daily range): BP systolic 103–187; BP diastolic 55–102
[2020-09-25] MEDS: HYDROMORPHONE HCL 0.5 MG/0.5 ML ML IVP PRN ×4 (04:35→21:11)
[2020-09-25 05:43] LABS: BASOPHILS % (AUTO) 0.6 % (0.0-5.0); HEMATOCRIT 27.2 % (36-48); LYMPHOCYTES % (AUTO) 18.1 % (21.0-51.0); MEAN CORPUSCULAR HGB CONC 31.6 g/dL (32.0-36.0); MEAN CORPUSCULAR VOLUME 94.8 fL (79-99); MONOCYTES % (AUTO) 9.8 % (3.0-13.0); PLATELET COUNT (AUTO) 260 K/uL (130-400); RED BLOOD CELL COUNT(AUTO) 2.87 MIL/uL (4.00-5.50); RED CELL DISTRIBUTION WIDTH 15.6 % (11.0-15.5); WHITE BLOOD COUNT (AUTO) 11.9 K/uL (4.8-10.8)
[2020-09-25 06:07] LABS: ALBUMIN 1.9 g/dL (3.5-5.0); BILIRUBIN,TOTAL 0.4 mg/dL (0.2-1.0); CREATININE 3.4 mg/dL (0.5-1.5); POTASSIUM 3.7 mmol/L (3.5-5.1); TOTAL PROTEIN, SERUM 6.1 g/dL (6.0-8.3)
[2020-09-25] MEDS: INSULIN HUMULIN R 100 UNIT/ML 3ML SQ SCH ×4 (06:38→21:00)
[2020-09-25] MEDS: GABAPENTIN 100 MG CAPSULE PO SCH (09:58)
[2020-09-25] MEDS: PANTOPRAZOLE SODIUM 40 MG TABLET.DR PO SCH (09:58)
[2020-09-25] MEDS: BALSAM PERU/CASTOR OIL 60 GM TUBE TP SCH ×3 (10:00→21:12)
[2020-09-25] MEDS: EPOETIN ALFA-EPBX (ESRD) 10,000 UNIT/ML VIAL SQ SCH (14:28)
[2020-09-26] VITALS: BP 137/54
[2020-09-26] MEDS: HYDROMORPHONE HCL 0.5 MG/0.5 ML ML IVP PRN ×4 (02:16→22:21)
[2020-09-26 04:00] VITALS: BP 164/55
[2020-09-26 05:44] LABS: BASOPHILS % (AUTO) 0.8 % (0.0-5.0); EOSINOPHILS % (AUTO) 3.3 % (0.0-8.0); HEMATOCRIT 28.5 % (36-48); LYMPHOCYTES % (AUTO) 18.7 % (21.0-51.0); MEAN CORPUSCULAR HGB CONC 30.9 g/dL (32.0-36.0); MEAN CORPUSCULAR VOLUME 97.3 fL (79-99); MONOCYTES % (AUTO) 9.7 % (3.0-13.0); NEUTROPHILS % (AUTO) 65.6 % (40.0-77.0); PLATELET COUNT (AUTO) 291 K/uL (130-400); RED BLOOD CELL COUNT(AUTO) 2.93 MIL/uL (4.00-5.50); RED CELL DISTRIBUTION WIDTH 15.9 % (11.0-15.5)
[2020-09-26 06:26] LABS: ALBUMIN 1.8 g/dL (3.5-5.0); BILIRUBIN,TOTAL 0.4 mg/dL (0.2-1.0); CREATININE 3.8 mg/dL (0.5-1.5); POTASSIUM 4.4 mmol/L (3.5-5.1); TOTAL PROTEIN, SERUM 6.4 g/dL (6.0-8.3)
[2020-09-26] MEDS ORDERED: INSULIN HUMULIN R 100 UNIT/ML 3ML SQ SCH ×2 (06:45→14:00)
[2020-09-26] MEDS: INSULIN HUMULIN R 100 UNIT/ML 3ML SQ SCH ×4 (06:51→20:14)
[2020-09-26 08:16] VITALS: BP 178/37
[2020-09-26] MEDS: GABAPENTIN 100 MG CAPSULE PO SCH (08:31)
[2020-09-26] MEDS: PANTOPRAZOLE SODIUM 40 MG TABLET.DR PO SCH (08:31)
[2020-09-26] MEDS: BALSAM PERU/CASTOR OIL 60 GM TUBE TP SCH ×3 (08:33→20:15)
[2020-09-26 11:28] VITALS: BP 176/82
[2020-09-26] MEDS: EPOETIN ALFA-EPBX (ESRD) 10,000 UNIT/ML VIAL SQ SCH (15:41)
[2020-09-26 19:46] VITALS: BP 143/63
[2020-09-26] MEDS: INSULIN GLARGINE 100 UNITS/ML 10 ML VIAL SQ SCH (20:14)
[2020-09-26 23:14] VITALS: BP 121/38
[2020-09-27 03:11] VITALS: BP 138/44
[2020-09-27] MEDS: HYDROMORPHONE HCL 0.5 MG/0.5 ML ML IVP PRN ×7 (04:31→20:13)
[2020-09-27] MEDS: INSULIN HUMULIN R 100 UNIT/ML 3ML SQ SCH ×4 (05:30→20:17)
[2020-09-27 06:15] LABS: BASOPHILS % (AUTO) 0.9 % (0.0-5.0); EOSINOPHILS % (AUTO) 9.5 % (0.0-8.0); LYMPHOCYTES % (AUTO) 22.5 % (21.0-51.0); MEAN CORPUSCULAR HEMOGLOBIN 29.7 pg (27.0-33.0); MEAN CORPUSCULAR HGB CONC 31.1 g/dL (32.0-36.0); MEAN CORPUSCULAR VOLUME 95.4 fL (79-99); MONOCYTES % (AUTO) 7.4 % (3.0-13.0); NEUTROPHILS % (AUTO) 57.8 % (40.0-77.0); PLATELET COUNT (AUTO) 384 K/uL (130-400); RED BLOOD CELL COUNT(AUTO) 2.83 MIL/uL (4.00-5.50); RED CELL DISTRIBUTION WIDTH 15.3 % (11.0-15.5); WHITE BLOOD COUNT (AUTO) 14.8 K/uL (4.8-10.8)
[2020-09-27 06:17] LABS: CREATININE 4.6 mg/dL (0.5-1.5); POTASSIUM 4.2 mmol/L (3.5-5.1)
[2020-09-27 07:59] VITALS: BP 155/64
[2020-09-27] MEDS: PANTOPRAZOLE SODIUM 40 MG TABLET.DR PO SCH (09:00)
[2020-09-27] MEDS: BALSAM PERU/CASTOR OIL 60 GM TUBE TP SCH ×3 (09:00→20:42)
[2020-09-27] MEDS: GABAPENTIN 100 MG CAPSULE PO SCH (09:01)
[2020-09-27] MEDS: ACETAMINOPHEN 325 MG TAB PO PRN ×3 (11:23→19:43)
[2020-09-27 11:30] VITALS: BP 101/63
[2020-09-27] MEDS: EPOETIN ALFA-EPBX (ESRD) 10,000 UNIT/ML VIAL SQ SCH (15:00)
[2020-09-27 16:00] VITALS: BP 129/55
[2020-09-27 19:50] VITALS: BP 146/44
[2020-09-27] MEDS: INSULIN GLARGINE 100 UNITS/ML 10 ML VIAL SQ SCH (20:17)
[2020-09-28 00:22] VITALS: BP 138/75
[2020-09-28] MEDS: HYDROMORPHONE HCL 0.5 MG/0.5 ML ML IVP PRN ×4 (02:15→22:12)
[2020-09-28 03:51] VITALS: BP 122/60
[2020-09-28 04:57] LABS: BASOPHILS % (AUTO) 0.7 % (0.0-5.0); EOSINOPHILS % (AUTO) 7.5 % (0.0-8.0); HEMATOCRIT 26.2 % (36-48); LYMPHOCYTES % (AUTO) 19.1 % (21.0-51.0); MEAN CORPUSCULAR HGB CONC 31.3 g/dL (32.0-36.0); MONOCYTES % (AUTO) 6.8 % (3.0-13.0); PLATELET COUNT (AUTO) 350 K/uL (130-400); RED BLOOD CELL COUNT(AUTO) 2.73 MIL/uL (4.00-5.50); RED CELL DISTRIBUTION WIDTH 15.8 % (11.0-15.5); WHITE BLOOD COUNT (AUTO) 13.8 K/uL (4.8-10.8)
[2020-09-28 05:27] LABS: POTASSIUM 4.3 mmol/L (3.5-5.1)
[2020-09-28] MEDS: DEXTROSE 50%-WATER 50 ML DISP.SYRIN IV PRN (05:41)
[2020-09-28] MEDS: INSULIN HUMULIN R 100 UNIT/ML 3ML SQ SCH ×4 (05:51→20:09)
[2020-09-28 09:04] VITALS: BP 135/70
[2020-09-28] MEDS: GABAPENTIN 100 MG CAPSULE PO SCH (09:39)
[2020-09-28] MEDS: PANTOPRAZOLE SODIUM 40 MG TABLET.DR PO SCH (09:39)
[2020-09-28] MEDS: BALSAM PERU/CASTOR OIL 60 GM TUBE TP SCH ×3 (09:40→20:35)
[2020-09-28] MEDS: EPOETIN ALFA-EPBX (ESRD) 10,000 UNIT/ML VIAL SQ SCH (15:49)
[2020-09-28 18:43] VITALS: BP 146/89
[2020-09-28 20:00] VITALS: BP 128/45
[2020-09-28] MEDS: INSULIN GLARGINE 100 UNITS/ML 10 ML VIAL SQ SCH (20:09)
[2020-09-28 23:42] VITALS: BP 156/50
[2020-09-29] MEDS: HYDROMORPHONE HCL 0.5 MG/0.5 ML ML IVP PRN ×4 (03:57→19:41)
[2020-09-29 04:00] VITALS: BP 148/53
[2020-09-29 06:21] LABS: BASOPHILS % (AUTO) 0.8 % (0.0-5.0); EOSINOPHILS % (AUTO) 8.3 % (0.0-8.0); LYMPHOCYTES % (AUTO) 20.5 % (21.0-51.0); MEAN CORPUSCULAR HEMOGLOBIN 29.8 pg (27.0-33.0); MEAN CORPUSCULAR HGB CONC 31.2 g/dL (32.0-36.0); MEAN CORPUSCULAR VOLUME 95.6 fL (79-99); MONOCYTES % (AUTO) 8.8 % (3.0-13.0); NEUTROPHILS % (AUTO) 60.8 % (40.0-77.0); PLATELET COUNT (AUTO) 423 K/uL (130-400); RED BLOOD CELL COUNT(AUTO) 2.72 MIL/uL (4.00-5.50); RED CELL DISTRIBUTION WIDTH 15.9 % (11.0-15.5); WHITE BLOOD COUNT (AUTO) 13.6 K/uL (4.8-10.8)
[2020-09-29] MEDS: INSULIN HUMULIN R 100 UNIT/ML 3ML SQ SCH ×4 (06:25→21:48)
[2020-09-29 06:57] LABS: ALBUMIN 1.6 g/dL (3.5-5.0); BILIRUBIN,TOTAL 0.4 mg/dL (0.2-1.0); CREATININE 4.4 mg/dL (0.5-1.5); POTASSIUM 5.5 mmol/L (3.5-5.1); TOTAL PROTEIN, SERUM 6.1 g/dL (6.0-8.3)
[2020-09-29 07:30] VITALS: BP 133/32
[2020-09-29] MEDS ORDERED: ALBUMIN (HUMAN) 25% 50 ML IV PRN (09:00)
[2020-09-29] MEDS: BALSAM PERU/CASTOR OIL 60 GM TUBE TP SCH ×3 (09:00→19:43)
[2020-09-29] MEDS ORDERED: ALBUMIN (HUMAN) 25% 50 ML IV SCH (09:00)
[2020-09-29] MEDS ORDERED: PHARMACY COMMUNICATION MISC SCH (10:00)
[2020-09-29 11:00] VITALS: BP 121/69
[2020-09-29] MEDS: GABAPENTIN 100 MG CAPSULE PO SCH (13:53)
[2020-09-29] MEDS: EPOETIN ALFA-EPBX (ESRD) 10,000 UNIT/ML VIAL SQ SCH (13:53)
[2020-09-29] MEDS: PANTOPRAZOLE SODIUM 40 MG TABLET.DR PO SCH (13:53)
[2020-09-29 15:47] LABS: HEMATOCRIT 25.4 % (36-48)
[2020-09-29 16:00] VITALS: BP 148/61
[2020-09-29 16:02] LABS: ALBUMIN 1.8 g/dL (3.5-5.0)
[2020-09-29 16:20] LABS: % IRON SATURATION 42.5 % (22-44)
[2020-09-29 16:26] LABS: HEMOGLOBIN A1C 6.3 % (4.0-6.0)
[2020-09-29] MEDS ORDERED: MIDODRINE HCL 5 MG TABLET PO PRN (18:45)
[2020-09-29 20:13] VITALS: BP 165/32
[2020-09-29] MEDS: INSULIN GLARGINE 100 UNITS/ML 10 ML VIAL SQ SCH (21:49)
[2020-09-29 23:41] VITALS: BP 170/44
[2020-09-30] MEDS: HYDROMORPHONE HCL 0.5 MG/0.5 ML ML IVP PRN ×4 (01:43→22:13)
[2020-09-30 03:46] VITALS: BP 166/56
[2020-09-30] MEDS: INSULIN HUMULIN R 100 UNIT/ML 3ML SQ SCH ×4 (06:02→20:35)
[2020-09-30 06:08] LABS: HEMATOCRIT 25.1 % (36-48); MEAN CORPUSCULAR HEMOGLOBIN 30.4 pg (27.0-33.0); MEAN CORPUSCULAR HGB CONC 31.9 g/dL (32.0-36.0); MEAN CORPUSCULAR VOLUME 95.4 fL (79-99); RED BLOOD CELL COUNT(AUTO) 2.63 MIL/uL (4.00-5.50); RED CELL DISTRIBUTION WIDTH 15.9 % (11.0-15.5); WHITE BLOOD COUNT (AUTO) 11.1 K/uL (4.8-10.8)
[2020-09-30 06:29] LABS: ALBUMIN 1.7 g/dL (3.5-5.0); BILIRUBIN,TOTAL 0.3 mg/dL (0.2-1.0); CREATININE 2.9 mg/dL (0.5-1.5); POTASSIUM 4.1 mmol/L (3.5-5.1); TOTAL PROTEIN, SERUM 6.1 g/dL (6.0-8.3)
[2020-09-30 08:02] VITALS: BP 179/44
[2020-09-30] MEDS: PANTOPRAZOLE SODIUM 40 MG TABLET.DR PO SCH (09:44)
[2020-09-30] MEDS: GABAPENTIN 100 MG CAPSULE PO SCH (09:45)
[2020-09-30] MEDS ORDERED: TRAMADOL HCL 50 MG TABLET PO PRN (10:00)
[2020-09-30] MEDS: TRAMADOL HCL 50 MG TABLET PO PRN ×3 (11:34→20:35)
[2020-09-30] MEDS: BALSAM PERU/CASTOR OIL 60 GM TUBE TP SCH ×3 (11:38→20:38)
[2020-09-30 11:48] VITALS: BP 144/35
[2020-09-30] MEDS: EPOETIN ALFA-EPBX (ESRD) 10,000 UNIT/ML VIAL SQ SCH (14:47)
[2020-09-30 16:58] VITALS: BP 156/32
[2020-09-30 20:00] VITALS: BP 136/54
[2020-09-30] MEDS: INSULIN GLARGINE 100 UNITS/ML 10 ML VIAL SQ SCH (20:40)
[2020-10-01] VITALS (8 sets, daily range): BP systolic 95–139; BP diastolic 42–82
[2020-10-01] MEDS: HYDROMORPHONE HCL 0.5 MG/0.5 ML ML IVP PRN ×2 (05:22→12:46)
[2020-10-01] MEDS: INSULIN HUMULIN R 100 UNIT/ML 3ML SQ SCH ×4 (05:37→19:58)
[2020-10-01 05:41] LABS: HEMATOCRIT 26.5 % (36-48); MEAN CORPUSCULAR HEMOGLOBIN 30.5 pg (27.0-33.0); MEAN CORPUSCULAR HGB CONC 31.3 g/dL (32.0-36.0); MEAN CORPUSCULAR VOLUME 97.4 fL (79-99); RED BLOOD CELL COUNT(AUTO) 2.72 MIL/uL (4.00-5.50); RED CELL DISTRIBUTION WIDTH 16.2 % (11.0-15.5)
[2020-10-01 06:13] LABS: HEPATITIS Bs ANTIGEN SCREEN P Negative (Negative)
[2020-10-01 06:34] LABS: ALBUMIN 1.9 g/dL (3.5-5.0); BILIRUBIN,TOTAL 0.2 mg/dL (0.2-1.0); POTASSIUM 4.9 mmol/L (3.5-5.1); TOTAL PROTEIN, SERUM 6.9 g/dL (6.0-8.3)
[2020-10-01] MEDS: BALSAM PERU/CASTOR OIL 60 GM TUBE TP SCH ×3 (07:52→20:11)
[2020-10-01] MEDS: GABAPENTIN 100 MG CAPSULE PO SCH (07:52)
[2020-10-01] MEDS: PANTOPRAZOLE SODIUM 40 MG TABLET.DR PO SCH (07:52)
[2020-10-01] MEDS: TRAMADOL HCL 50 MG TABLET PO PRN ×3 (07:54→22:23)
[2020-10-01] MEDS: HEPARIN SODIUM 5000UNIT/ML 1ML VIAL IJ PRN (11:31)
[2020-10-01] MEDS: EPOETIN ALFA-EPBX (ESRD) 10,000 UNIT/ML VIAL SQ SCH (17:04)
[2020-10-01] MEDS ORDERED: HYDROMORPHONE HCL 0.5 MG/0.5 ML ML IVP PRN (20:00)
[2020-10-01] MEDS: INSULIN GLARGINE 100 UNITS/ML 10 ML VIAL SQ SCH (21:07)
[2020-10-02] MEDS ORDERED: FENTANYL 25 MCG/HR PATCH TD SCH
[2020-10-02] MEDS: DEXTROSE 50%-WATER 50 ML DISP.SYRIN IV PRN (04:10)
[2020-10-02 04:22] LABS: EOSINOPHILS % (AUTO) 5.1 % (0.0-8.0); HEMATOCRIT 24.7 % (36-48); LYMPHOCYTES % (AUTO) 19.1 % (21.0-51.0); MEAN CORPUSCULAR HEMOGLOBIN 30.2 pg (27.0-33.0); MEAN CORPUSCULAR HGB CONC 30.8 g/dL (32.0-36.0); MONOCYTES % (AUTO) 7.9 % (3.0-13.0); NEUTROPHILS % (AUTO) 66.5 % (40.0-77.0); PLATELET COUNT (AUTO) 423 K/uL (130-400); RED BLOOD CELL COUNT(AUTO) 2.52 MIL/uL (4.00-5.50); RED CELL DISTRIBUTION WIDTH 16.3 % (11.0-15.5); WHITE BLOOD COUNT (AUTO) 14.7 K/uL (4.8-10.8)
[2020-10-02 04:24] VITALS: BP 100/70
[2020-10-02 04:44] LABS: ALBUMIN 2.1 g/dL (3.5-5.0); BILIRUBIN,TOTAL 0.3 mg/dL (0.2-1.0); CREATININE 3.4 mg/dL (0.5-1.5); TOTAL PROTEIN, SERUM 6.6 g/dL (6.0-8.3)
[2020-10-02 04:52] LABS: PLATELET MORPHOLOGY PLT CLUMPS PRESENT
[2020-10-02] MEDS: HYDROCODONE/ACETAMINOPHEN 5/325 MG TAB PO PRN ×4 (04:59→21:46)
[2020-10-02] MEDS: INSULIN HUMULIN R 100 UNIT/ML 3ML SQ SCH ×4 (05:39→20:03)
[2020-10-02] MEDS: GABAPENTIN 100 MG CAPSULE PO SCH (07:24)
[2020-10-02] MEDS: PANTOPRAZOLE SODIUM 40 MG TABLET.DR PO SCH (07:24)
[2020-10-02 08:00] VITALS: BP 150/60
[2020-10-02] MEDS: BALSAM PERU/CASTOR OIL 60 GM TUBE TP SCH ×3 (09:00→20:03)
[2020-10-02] MEDS: EPOETIN ALFA-EPBX (ESRD) 10,000 UNIT/ML VIAL SQ SCH (11:17)
[2020-10-02 12:00] VITALS: BP 122/47
[2020-10-02 16:00] VITALS: BP 160/42
[2020-10-02] MEDS: INSULIN GLARGINE 100 UNITS/ML 10 ML VIAL SQ SCH (20:03)
[2020-10-02 20:33] VITALS: BP 147/41
== END 2020-10-02 23:50 | DRG 377 ==
LOC: EDH 18:10 → EDHIP 19:12 → 3DH 09-20 12:21
PROVIDERS: ADMIT Internal Medicine; ATTEND Internal Medicine
PROC: 5A1D70Z Performance of Urinary Filtration, Intermittent, Less than 6 Hours Per Day (ICD-10-PCS; principal; 2020-09-20)
PROC: 30233K1 Transfusion of Nonautologous Frozen Plasma into Peripheral Vein, Percutaneous Approach (ICD-10-PCS; 2020-09-20)
PROC: 30233N1 Transfusion of Nonautologous Red Blood Cells into Peripheral Vein, Percutaneous Approach (ICD-10-PCS; 2020-09-20)
PROC: 0DJD8ZZ Inspection of Lower Intestinal Tract, Via Natural or Artificial Opening Endoscopic (ICD-10-PCS; 2020-09-20)
PROC: 0DJ08ZZ Inspection of Upper Intestinal Tract, Via Natural or Artificial Opening Endoscopic (ICD-10-PCS; 2020-09-20)
PROC: 0DJ08ZZ Inspection of Upper Intestinal Tract, Via Natural or Artificial Opening Endoscopic (ICD-10-PCS; 2020-09-21)
PROC: 5A1D70Z Performance of Urinary Filtration, Intermittent, Less than 6 Hours Per Day (ICD-10-PCS; 2020-09-22)
PROC: 5A1D70Z Performance of Urinary Filtration, Intermittent, Less than 6 Hours Per Day (ICD-10-PCS; 2020-09-24)
PROC: 5A1D70Z Performance of Urinary Filtration, Intermittent, Less than 6 Hours Per Day (ICD-10-PCS; 2020-09-25)
PROC: 5A1D70Z Performance of Urinary Filtration, Intermittent, Less than 6 Hours Per Day (ICD-10-PCS; 2020-09-27)
PROC: 5A1D70Z Performance of Urinary Filtration, Intermittent, Less than 6 Hours Per Day (ICD-10-PCS; 2020-09-29)
PROC: 5A1D70Z Performance of Urinary Filtration, Intermittent, Less than 6 Hours Per Day (ICD-10-PCS; 2020-10-01)
PROC: 5A1D70Z Performance of Urinary Filtration, Intermittent, Less than 6 Hours Per Day (ICD-10-PCS; 2020-10-02)
DX: K29.01 Acute gastritis with bleeding (principal); N18.6 End stage renal disease; J18.9 Pneumonia, unspecified organism; I12.0 Hypertensive chronic kidney disease with stage 5 chronic kidney disease or end stage renal disease; D62 Acute posthemorrhagic anemia; D68.59 Other primary thrombophilia; I82.A11 Acute embolism and thrombosis of right axillary vein; I82.B11 Acute embolism and thrombosis of right subclavian vein; E10.52 Type 1 diabetes mellitus with diabetic peripheral angiopathy with gangrene; K27.9 Peptic ulcer, site unspecified, unspecified as acute or chronic, without hemorrhage or perforation; E78.5 Hyperlipidemia, unspecified; E10.40 Type 1 diabetes mellitus with diabetic neuropathy, unspecified; Z99.2 Dependence on renal dialysis; E10.22 Type 1 diabetes mellitus with diabetic chronic kidney disease; E10.319 Type 1 diabetes mellitus with unspecified diabetic retinopathy without macular edema; E10.649 Type 1 diabetes mellitus with hypoglycemia without coma; F32.9 Major depressive disorder, single episode, unspecified; F41.9 Anxiety disorder, unspecified; Z20.822 Contact with and (suspected) exposure to COVID-19; K21.00 Gastro-esophageal reflux disease with esophagitis, without bleeding; R53.81 Other malaise; M32.9 Systemic lupus erythematosus, unspecified; E10.622 Type 1 diabetes mellitus with other skin ulcer; E10.65 Type 1 diabetes mellitus with hyperglycemia; E66.9 Obesity, unspecified; G89.29 Other chronic pain; I25.10 Atherosclerotic heart disease of native coronary artery without angina pectoris; L98.419 Non-pressure chronic ulcer of buttock with unspecified severity; Z79.4 Long term (current) use of insulin; Z82.0 Family history of epilepsy and other diseases of the nervous system; Z82.3 Family history of stroke; Z82.41 Family history of sudden cardiac death; Z82.49 Family history of ischemic heart disease and other diseases of the circulatory system; Z82.5 Family history of asthma and other chronic lower respiratory diseases; Z83.3 Family history of diabetes mellitus; Z86.74 Personal history of sudden cardiac arrest; Z87.11 Personal history of peptic ulcer disease; Z89.021 Acquired absence of right finger(s); Z89.432 Acquired absence of left foot; Z90.49 Acquired absence of other specified parts of digestive tract; Z79.899 Other long term (current) drug therapy; Z68.34 Body mass index [BMI] 34.0-34.9, adult
CPT/HCPCS: 36415; 43235; 44360; 71045; 74176; 80048; 80053; 80061; 80074; 82040; 82270; 82306; 82565; 82728; 82948; 83036; 83540; 83550; 83880; 83970; 84145; 84520; 85014; 85018; 85025; 85027; 85610; 85730; 86677; 86701; 86704; 86706; 86850; 86900; 86901; 86923; 86927; 87040; 87077; 87186; 87340; 87390; 87426; 87507; 87520; 90935; 93005; 93970; 97039; A4606; C9113; G0378; J1170; J1644; J1815; J2250; J2405; J2704; J7030; J7070; P9016; P9017; P9046; P9047; U0003